=== PATIENT | male | born 1955 | race Caucasian/White ===

== ENCOUNTER 2018-05-27 16:31 | Emergency (ER) | payer MEDICARE, MEDICAID ==
[2018-05-27] MEDS ORDERED: NOREPINEPHRINE BITARTRATE INJ/PF 4 MG/4 ML SDV IV ONE (16:34)
[2018-05-27] MEDS ORDERED: DEXTROSE 5%-WATER 250 ML with NOREPINEPHRINE BITARTRATE 4 MG IV PRN ×2 (16:46)
[2018-05-27 16:47] LABS: ABSOLUTE LYMPHOCYTES (AUTO) 2.3 10^3/uL (0.5-4.7); ABSOLUTE NEUT (AUTO) 6.2 10^3/uL (1.7-8.2); BASOPHILS % (AUTO) 0.2 % (0-2); EOSINOPHILS % (AUTO) 0.2 % (0-6); HEMATOCRIT 52.8 % (37.9-51.0); HEMOGLOBIN 18.2 g/dL (13.5-17.0); LYMPHOCYTES % (AUTO) 24.3 % (13-45); MEAN CORPUSCULAR HEMOGLOBIN 34.7 pg (27.0-33.4); MEAN CORPUSCULAR HGB CONC 34.5 g/dL (32.0-36.0); MEAN CORPUSCULAR VOLUME 100 fl (80-97); MONOCYTES % (AUTO) 10.5 % (3-13); PLATELET COUNT 169 10^3/uL (150-450); RED BLOOD COUNT 5.26 10^6/uL (4.35-5.55); RED CELL DISTRIBUTION WIDTH 14.1 % (11.5-14.0); SEGMENTED NEUTROPHILS % (AUTO) 64.8 % (42-78); TOTAL CELLS COUNTED % (AUTO) 100 %; WHITE BLOOD COUNT 9.5 10^3/uL (4.0-10.5)
[2018-05-27] MEDS ORDERED: RINGERS SOLUTION,LACTATED 1,000 ML IV ONE (16:49)
[2018-05-27] MEDS ORDERED: NORMAL SALINE 1000 ML 1,000 ML IV PRN (17:03)
--- NOTE | 2018-05-27 17:05 | ER Document Report ---
ED General - General Stated Complaint: BLOOD PRESSURE ISSUE Time Seen by Provider: 05/27/18 16:54 Mode of Arrival: Medic Information source: Patient Notes: 62-year-old male brought to the emergency department by EMS for possible dehydration. Patient states over the last 3 days he has had nausea, vomiting, diarrhea with minimal fluid intake. Patient states that he is unable to keep any fluids down. He contacted EMS because he is been feeling lightheaded secondary to possible dehydration. Patient denies a history of sick contacts. He denies any chest pain, shortness of breath, abdominal pain, dysuria, hematuria. Patient states that he does have a history of hypertension, diabetes , COPD. He denies a history of congestive heart failure. TRAVEL OUTSIDE OF THE [place] IN LAST 30 DAYS: No - HPI Onset: Other - 3 days Onset/Duration: Sudden Quality of pain: No pain Severity: None Pain Level: Denies Associated symptoms: Diarrhea, Vomiting Exacerbated by: Denies Relieved by: Denies Similar symptoms previously: No Recently seen / treated by doctor: No - Related Data Allergies/Adverse Reactions: No Known Allergies Allergy (Verified 03/12/13 14:51) Past Medical History - Social History Smoking Status: Former Smoker Family History: Reviewed & Not Pertinent - Past Medical History Cardiac Medical History: Reports: Hx Hypercholesterolemia, Hx Hypertension Renal/ Medical History: Reports: Hx Kidney Stones - Immunizations Hx Diphtheria, Pertussis, Tetanus Vaccination: No - pt unsure Review of Systems - Review of Systems Constitutional: No symptoms reported EENT: No symptoms reported Cardiovascular: Lightheaded Respiratory: No symptoms reported Gastrointestinal: Diarrhea, Nausea, Vomiting Genitourinary: No symptoms reported Male Genitourinary: No symptoms reported Musculoskeletal: No symptoms reported Skin: No symptoms reported Hematologic/Lymphatic: No symptoms reported Neurological/Psychological: No symptoms reported -: Yes All other systems reviewed and negative Physical Exam - Vital signs Vitals: Resp 15 05/27/18 16:40 - Notes Notes: PHYSICAL EXAMINATION: GENERAL: Well-appearing, well-nourished and in no acute distress. HEAD: Atraumatic, normocephalic. EYES: Pupils equal round and reactive to light, extraocular movements intact, sclera anicteric, conjunctiva are normal. ENT: Nares patent, oropharynx clear without exudates. Moist mucous membranes. NECK: Normal range of motion, supple without lymphadenopathy LUNGS: Breath sounds clear to auscultation bilaterally and equal. No wheezes rales or rhonchi. HEART: Regular rate and rhythm without murmurs ABDOMEN: Soft, nontender, nondistended abdomen. No guarding, no rebound. No masses appreciated. Musculoskeletal: Normal range of motion, no pitting or edema. No cyanosis. NEUROLOGICAL: Cranial nerves grossly intact. Normal speech, normal gait. Normal sensory, motor exams PSYCH: Normal mood, normal affect. SKIN: Warm, Dry, normal turgor, no rashes or lesions noted. Course - Re-evaluation Re-evalutation: 05/27/18 17:05 Patient received 2200ml and fluids and then Levophed was started as the patient' s blood pressure was in the 60s systolic. Patient denies fever, chills, chest pain, shortness of breath, abdominal pain. 05/27/18 18:51 EKG: Ventricular rate 110, para interval 164, castration 138, QTc 488, sinus tachycardia, right bundle branch block. 05/27/18 18:52 Levophed drip was held. Patient received an additional 2 L of fluids. Patient continued to be hypotensive in the 80s systolic. Patient was restarted on the Levophed drip. Patient refused central line. Labs were obtained. Patient's creatinine and BUN are elevated. Patient states that he does have a history of renal failure. He states that he has not required dialysis in the past. Patient states that he followed up with his primary care physician about a month ago and had blood work done. He was told that his renal function was normal. Patient states that he does go to pain management for chronic hip and lower back pain. I contacted [facility] for transfer the patient. I spoke with Dr. Salazar. He would like a lactic acid as well as an ABG done. I went to reevaluate the patient. He is now complaining of some abdominal pain. Patient states that he has a history of abdominal hernias. Patient states that his pain is similar to previous. He states that this pain is not new. With the patient being hypotensive and requiring a Levophed drip, a CT abdomen pelvis was ordered to rule out AAA prior to transfer. 05/27/18 20:10 CT done. Shows a complex cyst vs cystic neoplasm in the R mid pole kidney. ABG and lactic acid done. Lactic acid elevated. WBC is normal. Blood cultures obtained. No signs of infection in the lungs or urine. ABG shows chronic respiratory acidosis. 05/27/18 20:15 Flight crew in the ED to transport patient. Patient is currently stable without any complaints. - Vital Signs Vital signs: Temp Pulse Resp BP Pulse Ox 98.2 F 15 87/58 L 95 05/27/18 19:56 05/27/18 20:02 05/27/18 20:01 05/27/18 20:02 - Laboratory Result Diagrams: 05/27/18 15:45 05/27/18 15:45 Laboratory results interpreted by me: 05/27/18 05/27/18 05/27/18 15:45 15:45 16:58 Hgb 18.2 H Hct 52.8 H MCV 100 H MCH 34.7 H RDW 14.1 H Carbonic Acid ABG pCO2 ABG pO2 ABG HCO3 ABG Total CO2 ABG O2 Saturation Sodium 136.0 L Chloride 72 L Carbon Dioxide 35 H Anion Gap 29 H BUN 101 H Creatinine 8.64 H Est GFR ( Amer) 8 L Est GFR (Non-Af Amer) 6 L Glucose 146 H Lactic Acid 3.0 H Calcium 12.1 H* Direct Bilirubin 1.0 H ALT 77 H Urine Protein Urine Glucose (UA) Urine Blood 05/27/18 05/27/18 18:20 18:54 Hgb Hct MCV MCH RDW Carbonic Acid 1.66 H ABG pCO2 55.3 H ABG pO2 71.3 L ABG HCO3 30.8 H ABG Total CO2 32.5 H ABG O2 Saturation 93.6 L Sodium Chloride Carbon Dioxide Anion Gap BUN Creatinine Est GFR ( Amer) Est GFR (Non-Af Amer) Glucose Lactic Acid Calcium Direct Bilirubin ALT Urine Protein 100 H Urine Glucose (UA) 50 H Urine Blood SMALL H Discharge - Discharge Referrals: ALCON JONES MD [Primary Care Provider] - Follow up as needed
[2018-05-27 17:10] LABS: ALANINE AMINOTRANSFERASE 77 U/L (21-72); ALBUMIN 4.5 g/dL (3.5-5.0); ALKALINE PHOSPHATASE 73 U/L (38-126); ASPARTATE AMINO TRANSFERASE 49 U/L (17-59); BILIRUBIN,TOTAL 1.2 mg/dL (0.2-1.3); BLOOD UREA NITROGEN 101 mg/dL (7-20); CARBON DIOXIDE 35 mmol/L (22-30); GLUCOSE 146 mg/dL (75-110); POTASSIUM 4.4 mmol/L (3.6-5.0); TOTAL PROTEIN 7.7 g/dL (6.3-8.2)
[2018-05-27 17:15] LABS: CHLORIDE 72 mmol/L (98-107)
[2018-05-27 17:18] LABS: ANION GAP 29 (5-19)
[2018-05-27 17:19] LABS: CALCIUM 12.1 mg/dL (8.4-10.2)
--- NOTE | 2018-05-27 17:29 | RADIOLOGY REPORT (SQ) ---
EXAM DESCRIPTION: CHEST SINGLE VIEW COMPLETED DATE/TIME: 05/27/2018 5:17 pm REASON FOR STUDY: bed 18 COMPARISON: Two-view chest 03/07/2015 EXAM PARAMETERS: NUMBER OF VIEWS: One view. TECHNIQUE: Single frontal radiographic view of the chest acquired. RADIATION DOSE: NA LIMITATIONS: None. FINDINGS: LUNGS AND PLEURA: No opacities, masses or pneumothorax. No pleural effusion. MEDIASTINUM AND HILAR STRUCTURES: No masses. Contour normal. HEART AND VASCULAR STRUCTURES: Heart normal in size. Normal vasculature. BONES: No acute findings. HARDWARE: None in the chest. OTHER: No other significant finding. IMPRESSION: NO ACUTE RADIOGRAPHIC FINDING IN THE CHEST. TECHNICAL DOCUMENTATION: JOB ID: [id number] [employer]- All Rights Reserved Reading location - IP/workstation name: [email or web address]
[2018-05-27] MEDS ORDERED: LORAZEPAM INJ 2 MG/1 ML VIAL IV ONE (18:13)
[2018-05-27 18:55] LABS: APPEARANCE,URINE CLOUDY; BILIRUBIN,URINE NEGATIVE (NEGATIVE); COLOR,URINE YELLOW; GLUCOSE, URINE 50 mg/dL (NEGATIVE); KETONES,URINE NEGATIVE (NEGATIVE); LEUKOCYTE ESTERASE,URINE NEGATIVE (NEGATIVE); NITRITE,URINE NEGATIVE (NEGATIVE); PROTEIN,URINE 100 mg/dL (NEGATIVE); URINE SPECIFIC GRAVITY 1.016; UROBILINOGEN,URINE NEGATIVE mg/dL (<2.0)
--- NOTE | 2018-05-27 19:10 | EKG REPORT ---
SEVERITY:- ABNORMAL ECG - SINUS TACHYCARDIA RBBB AND LPFB : Confirmed by: Jermaine Toure 27-May-2018 19:09:48
--- NOTE | 2018-05-27 19:20 | RADIOLOGY REPORT (SQ) ---
EXAM DESCRIPTION: CT ABD/PELVIS NO ORAL OR IV COMPLETED DATE/TIME: 05/27/2018 7:08 pm REASON FOR STUDY: back pain COMPARISON: None. TECHNIQUE: CT scan of the abdomen and pelvis performed without intravenous contrast. Patient drank a very small amount of oral contrast. Images reviewed with lung, soft tissue, and bone windows. Cory nstructed coronal and sagittal MPR images reviewed. All images stored on PACS. All CT scanners at this facility use dose modulation, iterative reconstruction, and/or weight based d osing when appropriate to reduce radiation dose to as low as reasonably achievable (ALARA). [facility]: Dose Right [facility]: CareDose [facility]: Dose Right [facility]: Teradose 4D [facility]: Smart [place] RADIATION DOSE: CT Rad equipment meets quality standard of care and radiation dose reduction techniq ues were employed. CTDIvol: 19.9 mGy. DLP: 1001 mGy-cm.mGy. LIMITATIONS: None. FINDINGS: LOWER CHEST: Bibasilar atelectasis. Small hiatal hernia. No cardiomegaly. No pleural ef fusions. NON-CONTRASTED LIVER, SPLEEN, ADRENALS: Evaluation limited by lack of IV contrast. No identified sign ificant masses. PANCREAS: No masses. No peripancreatic inflammatory changes. GALLBLADDER: Multiple tiny gallstones without gallbladder wall thickening or pericholecystic fluid. RIGHT KIDNEY AND URETER: 3.5 x 3 cm complex cyst right mid-pole kidney may be a cystic neoplasm. No significant calcifications. No hydronephrosis or hydroureter. LEFT KIDNEY AND URETER: No suspicious masses. Assessment limited by lack of IV contrast. No signifi cant calcifications. No hydronephrosis or hydroureter. AORTA AND RETROPERITONEUM: No aneurysm. No retroperitoneal masses or adenopathy. BOWEL AND PERITONEAL CAVITY: No obvious masses or inflammatory changes. No free fluid. APPENDIX: Normal. PELVIS, BLADDER, AND ABDOMINAL WALL:No abnormal masses. No free fluid. Bladder normal. BONES: Degenerative disc changes throughout the lumbar spine. Central canal stenosis at L3-[address] bulge and bony spurring best shown on sagittal image 59 OTHER: No other significant finding. IMPRESSION: Complex cyst versus cystic neoplasm right mid-pole kidney Degenerative disc changes lumbar spine with high-grade central canal stenosis at L3-4 COMMENT: Quality ID # [id number]: Final reports with documentation of one or more dose reduction techniques (e.g., Automated exposure control, adjustment of the mA and/or kV according to patient size, use of iterative reconstruction technique) TECHNICAL DOCUMENTATION: JOB ID: [id number] [employer]- All Rights Reserved Reading location - IP/workstation name: [email or web address]
[2018-05-27] MEDS ORDERED: NICOTINE 21 MG/24 HR PATCH.TD24 TD ONE (19:36)
[2018-05-27 19:38] LABS: ARTERIAL BLOOD BASE EXCESS 3.8 mmol/L; ARTERIAL BLOOD FIO2 4L; ARTERIAL BLOOD H2CO3 1.66 mmol/L (1.05-1.35); ARTERIAL BLOOD HCO3 30.8 mmol/L (20-24); ARTERIAL BLOOD O2 SATURATION 93.6 % (94-98); ARTERIAL BLOOD PCO2 55.3 mmHg (35-45); ARTERIAL BLOOD PH 7.36 (7.35-7.45); ARTERIAL BLOOD PO2 71.3 mmHg (80-100); ARTERIAL BLOOD TOTAL CO2 32.5 mmol/L (23-27)
[2018-05-27 20:07] VITALS: BP 87/58
== END 2018-05-27 20:30 | disposition short-term general hospital (02) ==
LOC: ER 16:31
DX: E86.0 Dehydration (principal); R19.7 Diarrhea, unspecified; R11.2 Nausea with vomiting, unspecified; E78.00 Pure hypercholesterolemia, unspecified; I10 Essential (primary) hypertension; Z87.442 Personal history of urinary calculi
CPT/HCPCS: 93005; 99285; 96374; 36415; 87040; 82803; 83605; 85025; 80053; 81001; 84484; 71045; 74176; 93010; J3490; J2060; J7060; J7030; J7120

== ENCOUNTER 2018-06-11 16:47 | Emergency (ER) | payer MEDICARE, MEDICAID ==
[2018-06-11 16:57] VITALS: BP 104/68
--- NOTE | 2018-06-11 17:54 | ER Document Report ---
ED Medical Screen (RME) - General Chief Complaint: Chest Pain Stated Complaint: CHEST PAIN Time Seen by Provider: 06/11/18 17:40 Notes: Patient is a 62-year-old male with recent ICU stay for renal failure that presents to the emergency department for chief complaint of left arm pain and chest pain. Patient states that he was in the ICU recently and was discharged about a week ago, for acute renal failure, which was improved prior to his discharge, but he is also noted to have a mass on his kidney, which is currently being worked up, he has not yet had a biopsy. He states the pain comes of his left arm, and radiates into his left chest. He was seen by another physician today who advised him to come to the emergency department. ROS: Unless otherwise stated in this report the patient's positive and negative responses for review of systems for constitutional, eyes, ENT, cardiovascular, respiratory, gastrointestinal, neurological, genitourinary, musculoskeletal, and integumentary systems and related systems to the presenting problem are either as stated in the HPI or were not pertinent or were negative for the symptoms and/or complaints related to the presenting medical problem. PHYSICAL EXAMINATION: Vital signs reviewed. GENERAL: Well-appearing, well-nourished and in no acute distress. HEAD: Atraumatic, normocephalic. EYES: Pupils equal round extraocular movements intact, conjunctiva are normal. ENT: Nares patent NECK: Normal range of motion CV: Heart regular rate and rhythm LUNGS: No respiratory distress Musculoskeletal: Normal range of motion NEUROLOGICAL: Normal speech PSYCH: Normal mood, normal affect. MDM: Patient seen and examined for rapid initial assessment. Vital signs reviewed. EKG reviewed demonstrate a right bundle branch block, which was seen on prior EKG from 02/2018. A comprehensive ED assessment and evaluation of the patient , analysis of test results and completion of the medical decision making process will be conducted by additional ED providers. *Note is created using voice recognition software and may contain spelling, syntax or grammatical errors. TRAVEL OUTSIDE OF THE [place] IN LAST 30 DAYS: No - Related Data Allergies/Adverse Reactions: No Known Allergies Allergy (Verified 06/11/18 17:40) Past Medical History - Social History Frequency of alcohol use: None Drug Abuse: None - Past Medical History Cardiac Medical History: Reports: Hx Hypercholesterolemia, Hx Hypertension Renal/ Medical History: Reports: Hx Kidney Stones. Denies: Hx Peritoneal Dialysis - Immunizations Hx Diphtheria, Pertussis, Tetanus Vaccination: No - pt unsure Physical Exam - Vital signs Vitals: Temp Pulse Resp BP Pulse Ox 98.8 F 97 18 104/68 96 06/11/18 16:56 06/11/18 16:56 06/11/18 16:56 06/11/18 16:56 06/11/18 16:56 Course - Vital Signs Vital signs: Temp Pulse Resp BP Pulse Ox 98.8 F 97 18 104/68 96 06/11/18 16:56 06/11/18 16:56 06/11/18 16:56 06/11/18 16:56 06/11/18 16:56 Doctor's Discharge - Discharge Referrals: ALCON JONES MD [Primary Care Provider] - Follow up as needed
[2018-06-11 18:51] LABS: ABSOLUTE EOSINOPHILS # (AUTO) 0.1 10^3/uL (0.0-0.6); ABSOLUTE LYMPHOCYTES (AUTO) 1.8 10^3/uL (0.5-4.7); ABSOLUTE MONOCYTES (AUTO) 0.4 10^3/uL (0.1-1.4); ABSOLUTE NEUT (AUTO) 3.9 10^3/uL (1.7-8.2); BASOPHILS % (AUTO) 0.7 % (0-2); EOSINOPHILS % (AUTO) 1.6 % (0-6); HEMATOCRIT 48.1 % (37.9-51.0); HEMOGLOBIN 16.2 g/dL (13.5-17.0); LYMPHOCYTES % (AUTO) 28.8 % (13-45); MEAN CORPUSCULAR HEMOGLOBIN 33.8 pg (27.0-33.4); MEAN CORPUSCULAR HGB CONC 33.7 g/dL (32.0-36.0); MEAN CORPUSCULAR VOLUME 100 fl (80-97); MONOCYTES % (AUTO) 5.8 % (3-13); PLATELET COUNT 185 10^3/uL (150-450); RED CELL DISTRIBUTION WIDTH 13.2 % (11.5-14.0); SEGMENTED NEUTROPHILS % (AUTO) 63.1 % (42-78); TOTAL CELLS COUNTED % (AUTO) 100 %; WHITE BLOOD COUNT 6.2 10^3/uL (4.0-10.5)
--- NOTE | 2018-06-11 18:57 | RADIOLOGY REPORT (SQ) ---
EXAM DESCRIPTION: CHEST SINGLE VIEW COMPLETED DATE/TIME: 06/11/2018 6:07 pm REASON FOR STUDY: chest pain COMPARISON: 03/07/2015 EXAM PARAMETERS: NUMBER OF VIEWS: One view. TECHNIQUE: Single frontal radiographic view of the chest acquired. RADIATION DOSE: NA LIMITATIONS: None. FINDINGS: LUNGS AND PLEURA: Hyperexpansion of the lungs. There is slight haziness in the right base with blurring of the right hemidiaphragm. MEDIASTINUM AND HILAR STRUCTURES: No masses. Contour normal. HEART AND VASCULAR STRUCTURES: Heart normal in size. Normal vasculature. BONES: No acute findings. HARDWARE: None in the chest. OTHER: No other significant finding. IMPRESSION: Chronic lung changes. Cannot exclude very limited right lower lobe pneumonia. TECHNICAL DOCUMENTATION: JOB ID: [id number] [employer]- All Rights Reserved Reading location - IP/workstation name: [email or web address]
[2018-06-11 19:08] LABS: ALANINE AMINOTRANSFERASE 60 U/L (21-72); ALKALINE PHOSPHATASE 57 U/L (38-126); ANION GAP 8 (5-19); ASPARTATE AMINO TRANSFERASE 58 U/L (17-59); BILIRUBIN,DIRECT 0.3 mg/dL (0.0-0.4); BILIRUBIN,TOTAL 0.8 mg/dL (0.2-1.3); BLOOD UREA NITROGEN 19 mg/dL (7-20); CALCIUM 9.9 mg/dL (8.4-10.2); CARBON DIOXIDE 35 mmol/L (22-30); CHLORIDE 100 mmol/L (98-107); CREATINE KINASE 39 U/L (55-170); GLUCOSE 84 mg/dL (75-110); POTASSIUM 5.1 mmol/L (3.6-5.0); SODIUM 142.5 mmol/L (137-145); TOTAL PROTEIN 6.9 g/dL (6.3-8.2)
[2018-06-11 19:20] LABS: NT PRO BNP 195 pg/mL (5-900); TROPONIN I < 0.012 ng/mL
--- NOTE | 2018-06-12 08:27 | EKG REPORT ---
SEVERITY:- ABNORMAL ECG - SINUS RHYTHM RIGHT BUNDLE BRANCH BLOCK : Confirmed by: Jermaine Toure 12-Jun-2018 08:27:11
== END 2018-06-11 20:11 | disposition left against medical advice (07) ==
LOC: ER 16:47
DX: R07.9 Chest pain, unspecified (principal); N28.89 Other specified disorders of kidney and ureter; E78.00 Pure hypercholesterolemia, unspecified; I10 Essential (primary) hypertension; Z87.442 Personal history of urinary calculi
CPT/HCPCS: 36415; 71045; 80053; 82550; 83880; 84484; 85025; 93005; 93010; 99285

== ENCOUNTER → 2018-07-30 | Outpatient (CLI) | payer MEDICARE, MEDICAID ==
[2018-07-30 10:09] LABS: HEMATOCRIT 50.4 % (37.9-51.0); HEMOGLOBIN 17.2 g/dL (13.5-17.0); MEAN CORPUSCULAR HEMOGLOBIN 33.8 pg (27.0-33.4); MEAN CORPUSCULAR HGB CONC 34.1 g/dL (32.0-36.0); MEAN CORPUSCULAR VOLUME 99 fl (80-97); PLATELET COUNT 136 10^3/uL (150-450); RED BLOOD COUNT 5.09 10^6/uL (4.35-5.55); RED CELL DISTRIBUTION WIDTH 13.7 % (11.5-14.0)
[2018-07-30 10:17] LABS: APPEARANCE,URINE CLEAR; BILIRUBIN,URINE NEGATIVE (NEGATIVE); COLOR,URINE STRAW; GLUCOSE, URINE NEGATIVE (NEGATIVE); KETONES,URINE NEGATIVE (NEGATIVE); LEUKOCYTE ESTERASE,URINE NEGATIVE (NEGATIVE); NITRITE,URINE NEGATIVE (NEGATIVE); PROTEIN,URINE NEGATIVE (NEGATIVE); URINE SPECIFIC GRAVITY 1.008; UROBILINOGEN,URINE NEGATIVE mg/dL (<2.0)
[2018-07-30 10:30] LABS: ANION GAP 11 (5-19); BLOOD UREA NITROGEN 11 mg/dL (7-20); CALCIUM 10.1 mg/dL (8.4-10.2); CARBON DIOXIDE 32 mmol/L (22-30); CHLORIDE 100 mmol/L (98-107); GLUCOSE 124 mg/dL (75-110); POTASSIUM 4.8 mmol/L (3.6-5.0); SODIUM 142.9 mmol/L (137-145)
== END ==
LOC: OD 09:33
PROVIDERS: ATTEND Internal Medicine Nephrology
DX: E11.9 Type 2 diabetes mellitus without complications (principal); N17.9 Acute kidney failure, unspecified
CPT/HCPCS: 36415; 80048; 81001; 85027

== ENCOUNTER 2018-11-23 15:13 | Emergency (ER) | payer MEDICARE, MEDICAID ==
--- NOTE | 2018-11-23 16:28 | ER Document Report ---
ED Medical Screen (RME) - General Chief Complaint: Fall Injury Stated Complaint: DIFFICULTY BREATHING,BACK/SHOULDER PAIN Time Seen by Provider: 11/23/18 15:49 Primary Care Provider: Vicenta BLACK MD [Primary Care Provider] - Follow up as needed Mode of Arrival: Ambulatory Information source: Patient Notes: Patient is a 63-year-old male who presents to the emergency department with complaints of left shoulder pain, nausea, dizziness and headache after sustaining a fall 3 days ago. Patient reports he fell onto his left side, he is unsure why he fell but he believes he tripped over something. Patient reports he did not seek medical treatment at that time. He states that EMS did come to his house, checked his vitals and stated everything was normal. Patient reports persistent headache, vomiting x1 and dizziness. Patient went and saw his primary care provider today who wanted him sent to the emergency to part and for further evaluation. Exam: Patient alert, oriented and answering all questions appropriately. Speech clear. [employer] strengths are equal bilaterally. I have greeted and performed a rapid initial assessment of this patient. A comprehensive ED assessment and evaluation of the patient, analysis of test results and completion of the medical decision making process will be conducted by additional ED providers. Dictation of this chart was performed using voice recognition software; therefore, there may be some unintended grammatical errors. TRAVEL OUTSIDE OF THE [place] IN LAST 30 DAYS: No - Related Data Allergies/Adverse Reactions: No Known Allergies Allergy (Verified 06/11/18 17:40) Past Medical History - Social History Chew tobacco use (# tins/day): No Frequency of alcohol use: None Drug Abuse: None - Past Medical History Cardiac Medical History: Reports: Hx Hypercholesterolemia, Hx Hypertension Pulmonary Medical History: Reports: Hx COPD Renal/ Medical History: Reports: Hx Kidney Stones. Denies: Hx Peritoneal Dialysis - Immunizations Hx Diphtheria, Pertussis, Tetanus Vaccination: No - pt unsure Physical Exam - Vital signs Vitals: Temp Pulse Resp BP Pulse Ox 98.5 F 104 H 19 112/75 91 L 11/23/18 15:35 11/23/18 15:35 11/23/18 15:35 11/23/18 15:35 11/23/18 15:35 Course - Vital Signs Vital signs: Temp Pulse Resp BP Pulse Ox 98.5 F 104 H 19 112/75 91 L 11/23/18 15:35 11/23/18 15:35 11/23/18 15:35 11/23/18 15:35 11/23/18 15:35 Doctor's Discharge - Discharge Referrals: Vicenta BLACK MD [Primary Care Provider] - Follow up as needed
--- NOTE | 2018-11-23 16:51 | RADIOLOGY REPORT (SQ) ---
EXAM DESCRIPTION: CHEST 2 VIEWS COMPLETED DATE/TIME: 11/23/2018 4:42 pm REASON FOR STUDY: sob s/p fall 3 days ago COMPARISON: 06/11/2018 EXAM PARAMETERS: NUMBER OF VIEWS: two views TECHNIQUE: Digital Frontal and Lateral radiographic views of the chest acquired. RADIATION DOSE: NA LIMITATIONS: none FINDINGS: LUNGS AND PLEURA: No opacities, masses or pneumothorax. No pleural effusion. MEDIASTINUM AND HILAR STRUCTURES: No masses or contour abnormalities. HEART AND VASCULAR STRUCTURES: Stable heart size. No evidence for failure. BONES: No acute findings. HARDWARE: None in the chest. OTHER: No other significant finding. IMPRESSION: NO ACUTE RADIOGRAPHIC FINDING IN THE CHEST. TECHNICAL DOCUMENTATION: JOB ID: [id number] [employer]- All Rights Reserved Reading location - IP/workstation name: [email or web address]
--- NOTE | 2018-11-23 16:52 | RADIOLOGY REPORT (SQ) ---
EXAM DESCRIPTION: SHOULDER LEFT 2 OR MORE VIEWS COMPLETED DATE/TIME: 11/23/2018 4:42 pm REASON FOR STUDY: pain s/p fall 3 days ago COMPARISON: None. NUMBER OF VIEWS: Three views. TECHNIQUE: Internal rotation, external rotation, and Y view images acquired of the left shoulder. LIMITATIONS: None. FINDINGS: MINERALIZATION: Normal. BONES: No acute fracture or dislocation. No worrisome bone lesions. JOINTS: No dislocation. Mild scattered degenerative changes. VISUALIZED LUNGS AND RIBS: No pneumothorax. No rib fracture. SOFT TISSUES: No radiopaque foreign body. OTHER: No other significant finding. IMPRESSION: No evidence of acute injury. Mild scattered degenerative changes. TECHNICAL DOCUMENTATION: JOB ID: [id number] [employer]- All Rights Reserved Reading location - IP/workstation name: [email or web address]
--- NOTE | 2018-11-23 17:03 | RADIOLOGY REPORT (SQ) ---
EXAM DESCRIPTION: CT HEAD WITHOUT COMPLETED DATE/TIME: 11/23/2018 4:50 pm REASON FOR STUDY: fall 3 days ago, vomiting, dizziness COMPARISON: None. TECHNIQUE: Axial images acquired through the brain without intravenous contrast. Images reviewed wi th bone, brain and subdural windows. Additional sagittal and coronal reconstructions were generated. Images stored on PACS. All CT scanners at this facility use dose modulation, iterative reconstruction, and/or weight based d osing when appropriate to reduce radiation dose to as low as reasonably achievable (ALARA). [facility]: Dose Right [facility]: CareDose [facility]: Dose Right [facility]: Teradose 4D [facility]: Smart [employer] RADIATION DOSE: CT Rad equipment meets quality standard of care and radiation dose reduction techniq ues were employed. CTDIvol: 53.2 mGy. DLP: 964 mGy-cm. mGy. LIMITATIONS: None. FINDINGS: VENTRICLES: Normal size and contour. CEREBRUM: No masses. No hemorrhage. No midline shift. No evidence for acute infarction. Normal gra y/white matter differentiation. No areas of low density in the white matter. CEREBELLUM: No masses. No hemorrhage. No alteration of density. No evidence for acute infarction. EXTRAAXIAL SPACES: No fluid collections. No masses. ORBITS AND GLOBE: No intra- or extraconal masses. Normal contour of globe without masses. CALVARIUM: No fracture. PARANASAL SINUSES: No fluid or mucosal thickening. SOFT TISSUES: No mass or hematoma. OTHER: No other significant finding. IMPRESSION: NORMAL BRAIN CT WITHOUT CONTRAST. EVIDENCE OF ACUTE STROKE: NO. COMMENT: Quality ID # [id number]: Final reports with documentation of one or more dose reduction techniques (e.g., Automated exposure control, adjustment of the mA and/or kV according to patient size, use of iterative reconstruction technique) TECHNICAL DOCUMENTATION: JOB ID: [id number] [employer]- All Rights Reserved Reading location - IP/workstation name: [email or web address]
[2018-11-23] MEDS ORDERED: PREDNISONE 20 MG TABLET PO ONE (19:07)
[2018-11-23] MEDS ORDERED: IPRATROPIUM/ALBUTEROL 0.5-2.5 MG/3 ML AMPUL NEB ONE (19:09)
--- NOTE | 2018-11-23 19:09 | ER Document Report ---
ED General - General Chief Complaint: Fall Injury Stated Complaint: DIFFICULTY BREATHING,BACK/SHOULDER PAIN Time Seen by Provider: 11/23/18 15:49 Primary Care Provider: Vicenta BLACK MD [ACTIVE STAFF] - Follow up as needed Mode of Arrival: Ambulatory Notes: Patient is a 63-year-old male with past medical history of COPD, hypertension, presents complaining of a fall 3 days ago that he believes was when he tripped over something but is uncertain. States that he fell hitting his ground on concrete. He does show me a picture of a blood splattered on the concrete floor where he hit his head. States that he does not recall any of the events from the fall itself. States that since that time he has had a throbbing, constant, global headache that is mild to moderate in nature. He has had associated vomiting on one occasion but denies any weakness, numbness or confusion. States he does intimately feel somewhat lightheaded or dizzy. Symptoms have been constant since onset. No history of similar symptoms in the past. He also complains of some mild left shoulder discomfort but denies any other extremity injuries. The patient also reports that for the past 4-5 days he has had a cough with associated associated sputum production and mild increased shortness of breath. He has not been increasing his nebulizer treatments. Nothing seems to worsen his symptoms. He has not seen his primary doctor regarding the above concerns. Nothing is new or different that prompted a visit to the emergency department tonight. TRAVEL OUTSIDE OF THE [place] IN LAST 30 DAYS: No - Related Data Allergies/Adverse Reactions: No Known Allergies Allergy (Verified 06/11/18 17:40) Past Medical History - General Information source: Patient - Social History Smoking Status: Current Every Day Smoker Chew tobacco use (# tins/day): No Frequency of alcohol use: None Drug Abuse: None Lives with: Spouse/Significant other Family History: Reviewed & Not Pertinent Patient has suicidal ideation: No Patient has homicidal ideation: No - Past Medical History Cardiac Medical History: Reports: Hx Hypercholesterolemia, Hx Hypertension Pulmonary Medical History: Reports: Hx COPD Renal/ Medical History: Reports: Hx Kidney Stones. Denies: Hx Peritoneal Dialysis - Immunizations Hx Diphtheria, Pertussis, Tetanus Vaccination: No - pt unsure Review of Systems - Review of Systems Notes: Constitutional: Negative for fever. Eyes: Negative for visual changes. ENT: Negative for facial injury Cardiovascular: Negative for chest injury. Respiratory: Positive for shortness of breath, cough and sputum production Gastrointestinal: Negative for abdominal injury. Genitourinary: Negative for genital injury Musculoskeletal: Negative for back injury. Positive for left shoulder pain Skin: Positive for laceration/abrasions. Neurological: Positive for head injury. Physical Exam - Vital signs Vitals: Temp Pulse Resp BP Pulse Ox 98.5 F 104 H 19 112/75 91 L 11/23/18 15:35 11/23/18 15:35 11/23/18 15:35 11/23/18 15:35 11/23/18 15:35 Interpretation: Tachycardic, Hypoxic Notes: PHYSICAL EXAMINATION: GENERAL: Well-appearing, no acute distress. HEAD: Mild traumatic ecchymosis to the left posterior occiput otherwise atraumatic, normocephalic. EYES: Pupils equal round and reactive to light, extraocular movements intact, sclera anicteric, conjunctiva are normal. ENT: nares patent, no oral pharyngeal trauma. No hemotympanum, no Culver's sign, no raccoon eyes. NECK: No midline cervical spine tenderness. Patient able to move their head to 45 bilaterally without any discomfort. LUNGS: Breath sounds clear to auscultation bilaterally and equal. Faint expiratory wheezing in all lung boyd. HEART: Regular rate and rhythm without murmurs. CHEST WALL: No ecchymosis over the chest wall. ABDOMEN: Soft, nontender, normoactive bowel sounds. No guarding, no rebound. No abdominal bruising EXTREMITIES: Normal range of motion, no pitting or edema. no long bone deformities. BACK: No midline spinal tenderness, step-offs, or deformities. NEUROLOGICAL: Face symmetric. Tongue protrudes midline. Extraocular motions intact. Pupils are 2 mm and equally reactive. Normal speech, normal gait. 5 out of 5 strength in both the distal and proximal upper and lower extremities bilaterally. Sensation is grossly intact throughout. Finger to nose testing normal. Pronator drift normal. PSYCH: Normal mood, normal affect. SKIN: Warm, Dry, normal turgor, no rashes or lesions noted. Course - Re-evaluation Re-evalutation: 11/23/18 19:07 Patient presents after a fall 3 days ago. States that this was a mechanical fall believes he tripped over something but denies any syncopal component to the episode. Said that he has had to come in today due to ongoing headache, lightheadedness as well as having a cough with associated production of sputum and feeling more short of breath. CT of the head was obtained in triage that does not demonstrate any evidence of acute intracranial bleed. No evidence of skull fractures. No evidence of basilar skull fracture on exam. Patient does have a small left occipital scalp hematoma on examination but no other noted findings on trauma examination. Neurologic exam completely unremarkable. Patient evaluated by NEXUS criteria and found to be negative. Patient is also negative by bangladeshi C-spine criteria. No clinical evidence to suggest increased risk of cervical spine fracture. No indication for further imaging of the cervical spine this point. Patient also complained of some left shoulder pain. X-ray of this area is unremarkable. Chest x-ray is clear. Patient's vitals are noted show mild hypertension and tachycardia. Patient reports that tachycardia is his baseline with a normal heart rate between 105 and 110. He denies chest pain or pleuritic discomfort. He has no history of DVT or pulmonary embolus. No risk factors for pulmonary embolism. He has symptoms consistent with a viral upper respiratory picture including nasal congestion, cough, sputum production. He has a history of COPD, moderate wheezing on exam. He has been encouraged to use his inhalers at home and has been started on a 5-day course of prednisone. Did request that the patient remain in the emergency department given some borderline oxygen saturations to allow additional nebulizer therapies to ensure that his oxygen improved above 92%. Patient did decline stating he would like to go home, that it is normal for him. Patient did get up and move around which did resolve and his saturations improving to 98-99% and he states this is quite typical for him. At this time will discharge with return precautions and follow-up recommendations. Verbal discharge instructions given a the bedside and opportunity for questions given. Medication warnings reviewed. Patient is in agreement with this plan and has verbalized understanding of return precautions and the need for primary care follow-up in the next 24-72 hours. - Vital Signs Vital signs: Temp Pulse Resp BP Pulse Ox 98.5 F 104 H 19 112/75 91 L 11/23/18 15:35 11/23/18 15:35 11/23/18 15:35 11/23/18 15:35 11/23/18 15:35 - Diagnostic Test Radiology reviewed: Image reviewed, Reports reviewed Radiology results interpreted by me: 11/23/18 19:09 CT head: No acute intracranial bleed or mass Discharge - Discharge Clinical Impression: Shortness of breath COPD (chronic obstructive pulmonary disease) Qualifiers: COPD type: unspecified COPD Qualified Code(s): J44.9 - Chronic obstructive pulmonary disease, unspecified Fall Qualifiers: Encounter type: initial encounter Qualified Code(s): W19.XXXA - Unspecified fall, initial encounter Head trauma Qualifiers: Encounter type: initial encounter Qualified Code(s): S09.90XA - Unspecified injury of head, initial encounter Condition: Good Disposition: HOME, SELF-CARE Additional Instructions: You have likely sustained a contusion (bruise) to your head. Your CT scan of the head is normal today symptoms to expect from a concussion include nausea, mild to moderate headache, difficulty concentrating or sleeping, and mild lightheadedness. These symptoms should improve over the next few days to weeks. Return to the emergency department or follow-up with your primary care doctor if your symptoms are not improving over this time. Signs of a more serious head injury include vomiting, severe headache, excessive sleepiness or confusion, and weakness or numbness in your face, arms or legs. Return immediately to the Emergency Department if you experience any of these more concerning symptoms. Rest, avoid strenuous physical or mental activity, and avoid activities that could potentially result in another head injury until all your symptoms from this head injury are completely resolved for at least 2-3 weeks. If you participate in sports, get cleared by your doctor or marine mammal trainer before returning to play. You may take ibuprofen or acetaminophen over the counter according to label instructions for mild headache or scalp soreness. You were seen for a COPD exacerbation. Your symptoms improved with treatment here in the emergency department. However, it is very important that you return to the emergency department immediately if you began to have worsening difficulty breathing that does not respond to your normal home nebulizers. You are also being sent home on a five-day course of steroids that you should start taking tomorrow. Please also follow closely with your primary care physician. You should eturn to emergency department if you develop fever greater than 101, persistent cough, persistent vomiting, pass out, or any other symptoms that are concerning to you. Prescriptions: Prednisone [Deltasone 20 mg Tablet] 2 tab PO DAILY 5 Days tablet Referrals: Vicenta BLACK MD [ACTIVE STAFF] - Follow up tomorrow
[2018-11-23 19:26] VITALS: BP 122/91
== END 2018-11-23 19:28 | disposition home or self-care (01) ==
LOC: ER 15:13
DX: S00.03XA Contusion of scalp, initial encounter (principal); M25.512 Pain in left shoulder; R51 Headache; R42 Dizziness and giddiness; W19.XXXA Unspecified fall, initial encounter; Y92.008 Other place in unspecified non-institutional (private) residence as the place of occurrence of the external cause; J44.9 Chronic obstructive pulmonary disease, unspecified; I10 Essential (primary) hypertension; R05 Cough; R06.02 Shortness of breath; F17.200 Nicotine dependence, unspecified, uncomplicated; R00.0 Tachycardia, unspecified; R09.81 Nasal congestion
CPT/HCPCS: 99284; 71046; 73030; 70450; A9270; J7512

== ENCOUNTER 2019-01-27 12:03 | Emergency (ER) | payer MEDICARE, MEDICAID ==
[2019-01-27] MEDS ORDERED: IPRATROPIUM/ALBUTEROL 0.5-2.5 MG/3 ML AMPUL NEB ONE (12:56)
--- NOTE | 2019-01-27 12:57 | ER Document Report ---
ED Medical Screen (RME) - General Chief Complaint: Constipation Stated Complaint: CONSTIPATION Time Seen by Provider: 01/27/19 12:51 Primary Care Provider: ANNABELLE PAYTON MD [Primary Care Provider] - Follow up as needed TRAVEL OUTSIDE OF THE [place] IN LAST 30 DAYS: No - HPI Notes: 01/27/19 12:53 Patient is a 63-year-old male with a history of COPD (not on oxygen close), hypertension, hypercholesterolemia, chronic pain who presents complaining of left-sided sharp chest pain that started last evening and has been relatively constant. Patient states that he has chronic issues with shortness of breath. He also complains of being constipated and not being able to have a bowel movement in 6 days. Patient states that he does feel distended. No history of CAD, DE, PE, DVT. Denies GONZALEZ, fever, neck pain, URI, dysuria, or rash. I have treated and performed a rapid initial assessment of this patient. A comprehensive ED assessment and evaluation of the patient, analysis of test results and completion of medical decision making process will be conducted by additional ED providers. PHYSICAL EXAMINATION: GENERAL: Well-appearing, well-nourished and in no acute distress. A&Ox4. Answers questions appropriately. LUNGS: Breath sounds clear to auscultation bilaterally and equal. Prolonged expiration without significant wheezing noted. HEART: Regular rate and rhythm without murmurs, rubs, gallops. ABDOMEN: Soft, distended abdomen. No guarding, no rebound. Normal bowel sounds present. No CVA tenderness bilaterally. Grossly nontender (cannot elicit thorough abd exam w/o bed, however). Extremities: No cyanosis, clubbing, or edema b/l. - Related Data Allergies/Adverse Reactions: No Known Allergies Allergy (Verified 01/27/19 12:18) Past Medical History - Past Medical History Cardiac Medical History: Reports: Hx Hypercholesterolemia, Hx Hypertension Pulmonary Medical History: Reports: Hx COPD Renal/ Medical History: Reports: Hx Kidney Stones. Denies: Hx Peritoneal Dialysis - Immunizations Hx Diphtheria, Pertussis, Tetanus Vaccination: No - pt unsure Physical Exam - Vital signs Vitals: Temp Pulse Resp BP Pulse Ox 99 F 104 H 20 141/85 H 91 L 01/27/19 12:37 01/27/19 12:37 01/27/19 12:37 01/27/19 12:37 01/27/19 12:37 Course - Vital Signs Vital signs: Temp Pulse Resp BP Pulse Ox 99 F 104 H 20 141/85 H 91 L 01/27/19 12:37 01/27/19 12:37 01/27/19 12:37 01/27/19 12:37 01/27/19 12:37 Doctor's Discharge - Discharge Referrals: ANNABELLE PAYTON MD [Primary Care Provider] - Follow up as needed
[2019-01-27 13:36] LABS: VENOUS BLOOD BASE EXCESS 0.6 mmol/L; VENOUS BLOOD HCO3 27.9 mmol/L (20-32); VENOUS BLOOD PCO2 54.1 mmHg (35-63); VENOUS BLOOD PH 7.33 (7.30-7.42)
[2019-01-27 13:52] LABS: ALANINE AMINOTRANSFERASE 29 U/L (21-72); ALBUMIN 3.9 g/dL (3.5-5.0); ALKALINE PHOSPHATASE 82 U/L (38-126); ANION GAP 12 (5-19); ASPARTATE AMINO TRANSFERASE 29 U/L (17-59); BILIRUBIN,DIRECT 0.4 mg/dL (0.0-0.4); BLOOD UREA NITROGEN 12 mg/dL (7-20); CALCIUM 9.5 mg/dL (8.4-10.2); CARBON DIOXIDE 29 mmol/L (22-30); CHLORIDE 100 mmol/L (98-107); GLUCOSE 102 mg/dL (75-110); TOTAL PROTEIN 6.8 g/dL (6.3-8.2)
[2019-01-27 13:53] LABS: ABSOLUTE LYMPHOCYTES (AUTO) 1.6 10^3/uL (0.5-4.7); ABSOLUTE MONOCYTES (AUTO) 0.5 10^3/uL (0.1-1.4); ABSOLUTE NEUT (AUTO) 5.7 10^3/uL (1.7-8.2); BASOPHILS % (AUTO) 0.4 % (0-2); EOSINOPHILS % (AUTO) 0.3 % (0-6); HEMATOCRIT 52.5 % (37.9-51.0); HEMOGLOBIN 17.8 g/dL (13.5-17.0); LYMPHOCYTES % (AUTO) 20.7 % (13-45); MEAN CORPUSCULAR HEMOGLOBIN 33.6 pg (27.0-33.4); MEAN CORPUSCULAR HGB CONC 33.9 g/dL (32.0-36.0); MEAN CORPUSCULAR VOLUME 99 fl (80-97); MONOCYTES % (AUTO) 6.2 % (3-13); PLATELET COUNT 165 10^3/uL (150-450); RED BLOOD COUNT 5.29 10^6/uL (4.35-5.55); RED CELL DISTRIBUTION WIDTH 13.9 % (11.5-14.0); SEGMENTED NEUTROPHILS % (AUTO) 72.4 % (42-78); TOTAL CELLS COUNTED % (AUTO) 100 %; WHITE BLOOD COUNT 7.9 10^3/uL (4.0-10.5)
--- NOTE | 2019-01-27 13:57 | RADIOLOGY REPORT (SQ) ---
EXAM DESCRIPTION: ACUTE ABDOMEN SERIES COMPLETED DATE/TIME: 01/27/2019 1:46 pm REASON FOR STUDY: constipation and CP COMPARISON: 11/23/2018 NUMBER OF VIEWS: Three views. TECHNIQUE: Frontal chest, supine abdomen and upright/decubitus abdomen radiographic images acquired. LIMITATIONS: None. FINDINGS: CHEST: Lungs clear of infiltrates. FREE AIR: None. No abnormal gas collections. BOWEL GAS PATTERN: Nonobstructive pattern. No dilated loops or air fluid levels. CONSTIPATION: mild. CALCIFICATIONS: No suspicious calcifications. HARDWARE: None in the abdomen. SOFT TISSUES: No gross mass or suggestion of organomegaly. BONES: No acute fracture. No worrisome bone lesions. OTHER: No other significant finding. IMPRESSION: NO RADIOGRAPHIC EVIDENCE FOR ACUTE ABDOMINAL DISEASE. CONSTIPATION. TECHNICAL DOCUMENTATION: JOB ID: [id number] [id number] 2010 [employer]- All Rights Reserved Reading location - IP/workstation name: [email or web address]
[2019-01-27 14:04] LABS: NT PRO BNP 303 pg/mL (5-900)
[2019-01-27 14:22] LABS: TROPONIN I < 0.012 ng/mL
--- NOTE | 2019-01-27 14:22 | ER Document Report ---
ED General - General Chief Complaint: Constipation Stated Complaint: CONSTIPATION Time Seen by Provider: 01/27/19 12:51 Primary Care Provider: ANNABELLE PAYTON MD [Primary Care Provider] - Follow up in 3-5 days Notes: Patient is a 63 year old male that presents to the emergency department for chief complaint of constipation. Patient reports that he has not had a good bowel movement in about 6 days, he tried using stool softeners, enemas, castor oil, magnesium citrate and other [id number] medications without much relief. He states his been trying to go but not able to. He is now having distention of his abdomen and pain associated with it. Denies any nausea or vomiting. He does take oxycodone and morphine for chronic back pain, but he states his been taking this for many years and had no issues with constipation. Denies any recent fevers, chills, night sweats, dysuria, hematuria, chest pain or shortness of breath. Past Medical History: COPD, chronic low back pain, hypertension Past Surgical History: Hernia repair Social History: Admits to smoking cigarettes, and occasional alcohol use, denies illicit drug use. Family History: Reviewed and noncontributory for presenting illness Allergies: Reviewed, see documented allergy list. REVIEW OF SYSTEMS: Other than noted above, the 12 point review of systems was reviewed with the patient and were negative, all pertinent findings are included in the HPI. PHYSICAL EXAMINATION: Vital signs reviewed, nursing noted reviewed. GENERAL: Well-appearing, well-nourished appears somewhat uncomfortable, but no acute distress HEAD: Atraumatic, normocephalic. EYES: Eyes appear normal, extraocular movements intact, sclera anicteric, conjunctiva are normal. ENT: nares patent, oropharynx clear without exudates. Moist mucous membranes. NECK: Normal range of motion, supple without lymphadenopathy LUNGS: Mild wheezing throughout all lung boyd, but no acute respiratory distress, no crackles or rales. HEART: Regular rate and rhythm without murmurs ABDOMEN: Soft, mildly distended, and mild diffuse tenderness with palpation, normoactive bowel sounds. No rebound, guarding, or rigidity. No masses appreciated. EXTREMITIES: Nontender, good range of motion, no pitting or edema. NEUROLOGICAL: No focal neurological deficits. Moves all extremities spontaneously Motor and sensory grossly intact on exam. PSYCH: Normal mood, normal affect. SKIN: Warm, Dry, normal turgor, no rashes or lesions noted on exposed skin TRAVEL OUTSIDE OF THE [place] IN LAST 30 DAYS: No - Related Data Allergies/Adverse Reactions: No Known Allergies Allergy (Verified 01/27/19 12:18) Past Medical History - Social History Smoking Status: Current Every Day Smoker Frequency of alcohol use: None Drug Abuse: None Family History: Reviewed & Not Pertinent Patient has suicidal ideation: No Patient has homicidal ideation: No - Past Medical History Cardiac Medical History: Reports: Hx Hypercholesterolemia, Hx Hypertension Pulmonary Medical History: Reports: Hx COPD Renal/ Medical History: Reports: Hx Kidney Stones. Denies: Hx Peritoneal Dialysis - Immunizations Hx Diphtheria, Pertussis, Tetanus Vaccination: No - pt unsure Physical Exam - Vital signs Vitals: Temp Pulse Resp BP Pulse Ox 99 F 104 H 20 141/85 H 91 L 01/27/19 12:37 01/27/19 12:37 01/27/19 12:37 01/27/19 12:37 01/27/19 12:37 Course - Re-evaluation Re-evalutation: Patient seen and examined vital signs reviewed. Laboratory data and/or imaging were ordered as appropriate for the patient's presenting symptoms and complaint, with consideration of any critical or life threatening conditions that may be associated with their obtained history and exam as noted above. Patient was treated with magnesium citrate, MiraLAX, and soapsuds enema with mineral oil Results were reviewed when available and demonstrated plain film x-rays, negative for bowel obstruction or signs of one, but was consistent with constipation, blood work was otherwise unremarkable The patient was re-evaluated and was stable, did not have a significant bowel movement, at this point will discharge the patient home with prescription for GoLYTELY, and 3 days worth of Relistor, to see if this will help with his constipation Evaluation was most consistent with constipation, likely opiate induced Results were discussed with the patient at this point, after careful c onsideration I feel that that patient can be discharged from the emergency department, the patient was educated treatments and reasons to return to the emergency department based on their presumed diagnosis as noted above, they were advised to followup with a primary care physician in 2-3 days. Patient was agreeable to plan of care. *Note is created using voice recognition software and may contain spelling, syntax or grammatical errors. Laboratory 01/27/19 01/27/19 01/27/19 13:09 13:09 13:09 WBC 7.9 RBC 5.29 Hgb 17.8 H Hct 52.5 H MCV 99 H MCH 33.6 H MCHC 33.9 RDW 13.9 Plt Count 165 Seg Neutrophils % 72.4 Lymphocytes % 20.7 Monocytes % 6.2 Eosinophils % 0.3 Basophils % 0.4 Absolute Neutrophils 5.7 Absolute Lymphocytes 1.6 Absolute Monocytes 0.5 Absolute Eosinophils 0.0 Absolute Basophils 0.0 VBG pH VBG pCO2 VBG HCO3 VBG Base Excess Sodium 141.0 Potassium 5.0 Chloride 100 Carbon Dioxide 29 Anion Gap 12 BUN 12 Creatinine 0.91 Est GFR ( Amer) > 60 Est GFR (Non-Af Amer) > 60 Glucose 102 Calcium 9.5 Total Bilirubin 1.0 Direct Bilirubin 0.4 Neonat Total Bilirubin Not Reportable Neonat Direct Bilirubin Not Reportable Neonat Indirect Bili Not Reportable AST 29 ALT 29 Alkaline Phosphatase 82 Troponin I < 0.012 NT-Pro-B Natriuret Pep 303 Total Protein 6.8 Albumin 3.9 01/27/19 13:09 WBC RBC Hgb Hct MCV MCH MCHC RDW Plt Count Seg Neutrophils % Lymphocytes % Monocytes % Eosinophils % Basophils % Absolute Neutrophils Absolute Lymphocytes Absolute Monocytes Absolute Eosinophils Absolute Basophils VBG pH 7.33 VBG pCO2 54.1 VBG HCO3 27.9 VBG Base Excess 0.6 Sodium Potassium Chloride Carbon Dioxide Anion Gap BUN Creatinine Est GFR ( Amer) Est GFR (Non-Af Amer) Glucose Calcium Total Bilirubin Direct Bilirubin Neonat Total Bilirubin Neonat Direct Bilirubin Neonat Indirect Bili AST ALT Alkaline Phosphatase Troponin I NT-Pro-B Natriuret Pep Total Protein Albumin Acute Abdomen Series 01/27/19 12:55 IMPRESSION: NO RADIOGRAPHIC EVIDENCE FOR ACUTE ABDOMINAL DISEASE. CONSTIPATION. - Vital Signs Vital signs: Temp Pulse Resp BP Pulse Ox 98.7 F 110 H 17 133/82 H 92 01/27/19 16:55 01/27/19 16:55 01/27/19 16:55 01/27/19 16:55 01/27/19 16:55 - Laboratory Result Diagrams: 01/27/19 13:09 01/27/19 13:09 Laboratory results interpreted by me: 01/27/19 13:09 Hgb 17.8 H Hct 52.5 H MCV 99 H MCH 33.6 H - EKG Interpretation by Me Additional EKG results interpreted by me: EKG demonstrates sinus rhythm with a ventricular rate of 99 bpm, right axis deviation, QTC 470 ms, presence of right bundle branch block and left posterior fascicular block, with T wave inversions in leads V1 through V5, compared with prior EKG from 06/11/2018, with flipped T waves in lead V5 only. Discharge - Discharge Clinical Impression: Constipation Qualifiers: Constipation type: unspecified constipation type Qualified Code(s): K59.00 - Constipation, unspecified Condition: Stable Disposition: HOME, SELF-CARE Instructions: Constipation ([facility]) Additional Instructions: Please take the prescribed medications including the bowel prep, as well as the prescribed tablets, that will relieve your constipation, if it is related to chronic opiate use. Prescriptions: Methylnaltrexone [place] [Relistor] 450 mg PO DAILY #9 tablet Peg 3350/Na Sulf,Bicarb,Cl/KCl [Golytely Solution 4000 ml] 4,000 ml PO DAILY #1 bottle Referrals: ANNABELLE PAYTON MD [Primary Care Provider] - Follow up in 3-5 days
[2019-01-27] MEDS ORDERED: NORMAL SALINE 1000 ML 1,000 ML IV ONE (14:32)
[2019-01-27] MEDS ORDERED: MINERAL OIL 30 ML UDCUP PR ONE (14:32)
[2019-01-27] MEDS ORDERED: POLYETHYLENE GLYCOL 3350 POWDER 17 GM/1 PACKET PO ONE (14:33)
[2019-01-27] MEDS ORDERED: MAGNESIUM CITRATE 296 ML BOTTLE PO ONE (14:33)
[2019-01-27 17:00] VITALS: BP 133/82
--- NOTE | 2019-01-27 17:04 | EKG REPORT ---
SEVERITY:- ABNORMAL ECG - SINUS RHYTHM RBBB AND LPFB : Confirmed by: Scott Yan MD 27-Jan-2019 17:03:45
== END 2019-01-27 16:59 | disposition home or self-care (01) ==
LOC: ER 12:03
DX: K59.00 Constipation, unspecified (principal); R10.9 Unspecified abdominal pain; R10.817 Generalized abdominal tenderness; I45.2 Bifascicular block; M54.9 Dorsalgia, unspecified; G89.29 Other chronic pain; Z79.891 Long term (current) use of opiate analgesic; J44.9 Chronic obstructive pulmonary disease, unspecified; I10 Essential (primary) hypertension; F17.210 Nicotine dependence, cigarettes, uncomplicated
CPT/HCPCS: 93005; 94640; 99284; 36415; 85025; 80053; 84484; 82803; 83880; 74022; 93010; J3490 ×3; A9270; J7620

== ENCOUNTER 2019-01-28 01:40 | Emergency (ER) | payer MEDICARE, MEDICAID ==
[2019-01-28] MEDS ORDERED: NORMAL SALINE 1000 ML 1,000 ML IV ONE (02:29)
[2019-01-28] MEDS ORDERED: ONDANSETRON HCL INJ/PF 4 MG/2 ML SDV IV ONE (02:29)
[2019-01-28] MEDS ORDERED: KETOROLAC TROMETHAMINE INJ/PF 30 MG/1 ML SDV IV ONE (02:29)
--- NOTE | 2019-01-28 02:41 | ER Document Report ---
ED GI/ - General Chief Complaint: Constipation Stated Complaint: ABDOMNAL PAIN Time Seen by Provider: 01/28/19 02:08 Primary Care Provider: [facility] [Provider Group] - Follow up as needed Notes: Patient is a 63-year-old male that comes emergency department for chief complaint of abdominal pain and swelling. He states that he has not had a bowel movement for 7 days now. He was evaluated here yesterday, had an enema, stool softener prescriptions, he has already tried multiple methods at home including stool softeners, enemas, castor oil, and magnesium citrate. He states that despite all this he still has not had a bowel movement. He states he gave himself another enema earlier and a little bit of loose stool and possibly gas came out but no other results. He denies vomiting, fever, however he feels that the pain is worse. He states that he has not been passing gas aside from the self enema attempt. He is on oxycodone and morphine, however he denies ever using a stool softener in the past or having problems with constipation. Past medical history includes COPD, current smoker, hypertension, and hernia repair. TRAVEL OUTSIDE OF THE [place] IN LAST 30 DAYS: No - Related Data Allergies/Adverse Reactions: No Known Allergies Allergy (Verified 01/27/19 12:18) Past Medical History - General Information source: Patient - Social History Smoking Status: Current Every Day Smoker Smoking Education Provided: Yes - <3 min Frequency of alcohol use: None Drug Abuse: None Lives with: Family Family History: Reviewed & Not Pertinent - Past Medical History Cardiac Medical History: Reports: Hx Hypercholesterolemia, Hx Hypertension Pulmonary Medical History: Reports: Hx COPD Renal/ Medical History: Reports: Hx Kidney Stones. Denies: Hx Peritoneal Dialysis Musculoskeletal Medical History: Reports Hx Arthritis, Reports Hx Musculoskeletal Deformity Past Surgical History: Reports: Hx Herniorrhaphy - Immunizations Hx Diphtheria, Pertussis, Tetanus Vaccination: Yes Review of Systems - Review of Systems Constitutional: No symptoms reported EENT: No symptoms reported Cardiovascular: No symptoms reported Respiratory: No symptoms reported Gastrointestinal: See HPI Genitourinary: No symptoms reported Male Genitourinary: No symptoms reported Musculoskeletal: No symptoms reported Skin: No symptoms reported Hematologic/Lymphatic: No symptoms reported Neurological/Psychological: No symptoms reported Physical Exam - Vital signs Vitals: Temp Pulse Resp BP Pulse Ox 98.8 F 116 H 18 126/81 H 94 01/28/19 01:45 01/28/19 01:45 01/28/19 01:45 01/28/19 01:45 01/28/19 01:45 - Notes Notes: GENERAL: Appears mildly uncomfortable but not in severe distress HEAD: Normocephalic, atraumatic. EYES: Pupils equal, round, and reactive to light. Extraocular movements intact. ENT: Oral mucosa moist, tongue midline. Oropharynx unremarkable. Airway patent. Nares patent, no nasal septal hematoma, TM's intact. NECK: Full range of motion. Supple. Trachea midline. LUNGS: Clear to auscultation bilaterally, no wheezes, rales, or rhonchi. No respiratory distress. HEART: Mild tachycardia, normal rhythm. No murmur ABDOMEN: Distended with diffuse mild abdominal tenderness. Slightly more tender towards the umbilicus. There is a small umbilical hernia, however this is soft and reducible. GENITOURINARY: Deferred EXTREMITIES: Moves all 4 extremities spontaneously. No edema, normal radial and dorsalis pedis pulses bilaterally. No cyanosis. BACK: no cervical, thoracic, lumbar midline tenderness. No saddle anesthesia, normal distal neurovascular exam. Moves all extremities in full range of motion. NEUROLOGICAL: Alert and oriented x3. Normal speech. Cranial nerves II through XII grossly intact. PSYCH: Normal affect, normal mood. SKIN: Warm, dry, normal turgor. No rashes or lesions noted. Course - Re-evaluation Re-evalutation: Rectal exam was performed with Divina TEE at bedside, no fecal impaction was noted, there is no stool in the rectal vault. Patient does have distended abdomen, umbilical hernia without incarceration or noted tenderness, generalized abdominal tenderness. He states he is not passing gas. Concern for possible developing obstruction. He is not vomiting however and he does not look toxic. Vital signs are unremarkable except for initial tachycardia. He was given IV fluids. CBC without noted change, still shows elevated hemoglobin probably from long- term smoking. Chemistry generally unremarkable. Discussed with patient. CAT scan will be performed to rule out developing obstruction or other acute abnormality causing his constipation which he did not previously struggle with. Patient tolerated p.o. well without vomiting. CAT scan showing incidental findings including gallstones, spinal degenerative changes, renal cyst. Normal looking appendix, no obstruction or incarceration, no acute findings other than large stool load. Discussed with patient. Decision was made to provide him with lactulose, Phenergan on request, and he was given follow-up referral for surgical clinic, discussed return precautions in detail. Recheck heart rate was in the 90s to up to 104, improved from prior, similar to yesterday. Patient states he is ready to leave, states understanding and agreement with plan. - Vital Signs Vital signs: Temp Pulse Resp BP Pulse Ox 98.8 F 116 H 18 126/81 H 94 01/28/19 01:45 01/28/19 01:45 01/28/19 01:45 01/28/19 01:45 01/28/19 01:45 - Laboratory Result Diagrams: 01/28/19 02:40 01/28/19 02:40 Laboratory results interpreted by me: 01/28/19 01/28/19 02:40 02:40 Hgb 17.2 H Hct 51.1 H MCV 99 H RDW 14.1 H Chloride 97 L Carbon Dioxide 32 H Glucose 141 H Lipase 20.8 L Discharge - Discharge Clinical Impression: Abdominal pain Qualifiers: Abdominal location: generalized Qualified Code(s): R10.84 - Generalized abdominal pain Condition: Stable Disposition: HOME, SELF-CARE Additional Instructions: Your evaluation shows an umbilical hernia without incarceration. Follow-up with general surgery referral for management of this. Your CAT scan shows incidental findings of your spine, a cyst on your kidney, and gallstones as we discussed. There is a large amount of stool but there is no obstruction or concerning acute finding otherwise. I recommend taking the lactulose prescription provided for constipation, drink plenty fluids, follow-up with your primary care. Return if you worsen including vomiting, fever, if the hernia comes out and will not go back in, severe abdominal pain, or any other concerning or worsening symptoms. Prescriptions: RX: Lactulose 30 gm PO BID PRN #1 bottle PRN Reason: Promethazine HCl [Phenergan 25 mg Tablet] 25 mg PO Q6H PRN #15 tablet PRN Reason: Referrals: [facility] [Provider Group] - Follow up as needed
[2019-01-28 03:06] LABS: ABSOLUTE LYMPHOCYTES (AUTO) 1.4 10^3/uL (0.5-4.7); ABSOLUTE MONOCYTES (AUTO) 0.7 10^3/uL (0.1-1.4); ABSOLUTE NEUT (AUTO) 5.7 10^3/uL (1.7-8.2); BASOPHILS % (AUTO) 0.6 % (0-2); EOSINOPHILS % (AUTO) 0.3 % (0-6); HEMATOCRIT 51.1 % (37.9-51.0); HEMOGLOBIN 17.2 g/dL (13.5-17.0); LYMPHOCYTES % (AUTO) 18.2 % (13-45); MEAN CORPUSCULAR HEMOGLOBIN 33.3 pg (27.0-33.4); MEAN CORPUSCULAR HGB CONC 33.7 g/dL (32.0-36.0); MEAN CORPUSCULAR VOLUME 99 fl (80-97); MONOCYTES % (AUTO) 8.9 % (3-13); PLATELET COUNT 171 10^3/uL (150-450); RED BLOOD COUNT 5.17 10^6/uL (4.35-5.55); RED CELL DISTRIBUTION WIDTH 14.1 % (11.5-14.0); TOTAL CELLS COUNTED % (AUTO) 100 %
[2019-01-28 03:08] LABS: ALANINE AMINOTRANSFERASE 27 U/L (21-72); ALKALINE PHOSPHATASE 77 U/L (38-126); ANION GAP 10 (5-19); ASPARTATE AMINO TRANSFERASE 26 U/L (17-59); BILIRUBIN,DIRECT 0.3 mg/dL (0.0-0.4); BILIRUBIN,TOTAL 0.8 mg/dL (0.2-1.3); BLOOD UREA NITROGEN 14 mg/dL (7-20); CALCIUM 9.5 mg/dL (8.4-10.2); CARBON DIOXIDE 32 mmol/L (22-30); CHLORIDE 97 mmol/L (98-107); GLUCOSE 141 mg/dL (75-110); LIPASE 20.8 U/L (23-300); POTASSIUM 4.5 mmol/L (3.6-5.0); SODIUM 139.3 mmol/L (137-145); TOTAL PROTEIN 6.8 g/dL (6.3-8.2)
--- NOTE | 2019-01-28 06:07 | RADIOLOGY REPORT (SQ) ---
EXAM DESCRIPTION: CT ABDOMEN PELVIS WITH IV CONTRAST COMPLETED DATE/TME: 01/28/2019 00:00 CLINICAL HISTORY: 63 years, Male, not passing gas/stool, abd distension and pain COMPARISON: 05/27/2018 TECHNIQUE: Axial CT images of the abdomen and pelvis were obtained after the administration of IV and oral contrast. Sagittal and coronal reformats were performed. DLP 2040 Images stored on PACS. All CT scanners at this facility use dose modulation, iterative reconstruction, and/or weight based dosing when appropriate to reduce radiation dose to as low as reasonably achievable (ALARA). [facility]: Dose Right [facility]: CareDose [facility]: Dose Right [facility]: Teradose 4D [facility]: Cloud 66 LIMITATIONS: None. FINDINGS: Lung bases are clear. The liver contains subcentimeter hypodensities, which are too small to further characterize. Cholelithiasis. The pancreas, spleen, and adrenal glands appear unremarkable. There is a 3.7 cm right renal cyst. No evidence of urolithiasis or hydronephrosis bilaterally. There is a trace amount of free fluid within the pelvis. There is no free air. There are mild atherosclerotic calcifications of the abdominal aorta. The stomach and small bowel are unremarkable. The appendix is normal. Fluid is noted within the right colon. There is a large amount of stool within the colon. No evidence of diverticulitis. The urinary bladder and prostate gland appear unremarkable. There is multilevel spondylosis. Again noted is a posterior disc osteophyte complex at L3-L4 which causes narrowing the spinal canal by approximately 7 mm in AP dimension. IMPRESSION: Cholelithiasis. Large amount of stool within the colon. Mild amount of free fluid within the pelvis, which is abnormal with no clear source. TECHNICAL DOCUMENTATION: Quality ID # 436: Final reports with documentation of one or more dose reduction techniques (e.g., Automated exposure control, adjustment of the mA and/or kV according to patient size, use of iterative reconstruction technique) copyright 2011 Department of [employer] and Human Services- All Rights Reserved
[2019-01-28] MEDS ORDERED: LACTULOSE SYRUP 20 GM/30 ML UDCUP PO ONE (06:16)
[2019-01-28 06:37] VITALS: BP 110/81
== END 2019-01-28 06:40 | disposition home or self-care (01) ==
LOC: ER 01:40
DX: R10.84 Generalized abdominal pain (principal); K59.00 Constipation, unspecified; R10.9 Unspecified abdominal pain; R14.0 Abdominal distension (gaseous); Z79.899 Other long term (current) drug therapy; J44.9 Chronic obstructive pulmonary disease, unspecified; F17.200 Nicotine dependence, unspecified, uncomplicated; I10 Essential (primary) hypertension
CPT/HCPCS: 99284; 96361; 96374; 96375; 36415; 83690; 85025; 80053; 74177; A9270; J1885; J2405; J7030

== ENCOUNTER 2019-01-29 16:19 | Inpatient (IN) | payer MEDICARE, MEDICAID ==
[2019-01-29] MEDS ORDERED: LACTULOSE SYRUP 20 GM/30 ML UDCUP PO ONE ×2 (16:38→18:16)
[2019-01-29] MEDS ORDERED: BISACODYL 5 MG TABEC PO ONE (16:38)
[2019-01-29] MEDS ORDERED: MINERAL OIL 30 ML UDCUP PR ONE ×2 (16:39→18:36)
--- NOTE | 2019-01-29 16:40 | ER Document Report ---
ED Medical Screen (RME) - General Chief Complaint: Abdominal Pain Stated Complaint: ABDOMINAL PAIN Time Seen by Provider: 01/29/19 16:36 Primary Care Provider: ANNABELLE PAYTON MD [Primary Care Provider] - Follow up as needed TRAVEL OUTSIDE OF THE [place] IN LAST 30 DAYS: No - HPI Notes: 01/29/19 16:39 Patient is a 63-year-old male with a history of chronic issues with constipation (on narcotics), COPD, current smoker, hypertension, and hernia repair who presents complaining of inability to have a bowel movement over the past 8 days and feeling distended. He has been here the previous 2 days for similar complaint/concern. Patient states that he was sent home on medicines yesterday, and perform them but was not able to have a bowel movement and presents for reevaluation. He had an unremarkable work-up and CT otherwise aside from "large amount of stool." Pt is also c/o SOB more than his usual with a cough. Denies GONZALEZ, fever, neck pain, CP, dysuria, back pain, or rash. Pt is hypoxic at 88-89% on RA (normal per pt is mid 90's). Pt placed on O2. I have treated and performed a rapid initial assessment of this patient. A comprehensive ED assessment and evaluation of the patient, analysis of test results and completion of medical decision making process will be conducted by additional ED providers. PHYSICAL EXAMINATION: GENERAL: Well-appearing, well-nourished and in no acute distress. A&Ox4. Answers questions appropriately. LUNGS: diminished at base, slight crackle LLL HEART: Regular rate and rhythm without murmurs, rubs, gallops. Abd: + mild distention. + generalized tenderness. - Related Data Allergies/Adverse Reactions: No Known Allergies Allergy (Verified 01/29/19 16:24) Past Medical History - Past Medical History Cardiac Medical History: Reports: Hx Hypercholesterolemia, Hx Hypertension Pulmonary Medical History: Reports: Hx COPD Renal/ Medical History: Reports: Hx Kidney Stones. Denies: Hx Peritoneal Dialysis Musculoskeltal Medical History: Reports Hx Arthritis, Reports Hx Musculoskeletal Deformity Past Surgical History: Reports: Hx Herniorrhaphy - Immunizations Hx Diphtheria, Pertussis, Tetanus Vaccination: Yes Doctor's Discharge - Discharge Referrals: ANNABELLE PAYTON MD [Primary Care Provider] - Follow up as needed
[2019-01-29] MEDS ORDERED: IPRATROPIUM/ALBUTEROL 0.5-2.5 MG/3 ML AMPUL NEB ONE (16:44)
[2019-01-29 17:24] LABS: VENOUS BLOOD BASE EXCESS 7.1 mmol/L; VENOUS BLOOD HCO3 33.9 mmol/L (20-32); VENOUS BLOOD PCO2 54.6 mmHg (35-63); VENOUS BLOOD PH 7.41 (7.30-7.42)
--- NOTE | 2019-01-29 17:28 | RADIOLOGY REPORT (SQ) ---
EXAM DESCRIPTION: KUB/ABDOMEN (SINGLE VIEW); CHEST SINGLE VIEW COMPLETED DATE/TIME: 01/29/2019 5:14 pm REASON FOR STUDY: constipated/abd pain, no BM in 8 days; sob COMPARISON: 01/27/2019 NUMBER OF VIEWS: Three views. TECHNIQUE: Frontal chest, supine abdomen and upright/decubitus abdomen radiographic images acquired. LIMITATIONS: None. FINDINGS: CHEST: Lungs clear of infiltrates. Similar basilar interstitial changes. Stable mediasti num appearance. FREE AIR: None identified. BOWEL GAS PATTERN: Non-specific pattern. Moderate colonic gas. No dilated small bowel loops or air fluid levels. CONSTIPATION: moderate. CALCIFICATIONS: No suspicious calcifications. HARDWARE: None in the abdomen. SOFT TISSUES: No gross mass or suggestion of organomegaly. BONES: No acute fracture. No worrisome bone lesions. OTHER: No other significant finding. IMPRESSION: Non-specific gas pattern. Moderate colonic gas. No dilated small bowel loops or air fl uid levels.. CONSTIPATION. TECHNICAL DOCUMENTATION: JOB ID: [id number] [place]-72 2010 [employer]- All Rights Reserved Reading location - IP/workstation name: [email or web address]
--- NOTE | 2019-01-29 17:28 | RADIOLOGY REPORT (SQ) ---
EXAM DESCRIPTION: KUB/ABDOMEN (SINGLE VIEW); CHEST SINGLE VIEW COMPLETED DATE/TIME: 01/29/2019 5:14 pm REASON FOR STUDY: constipated/abd pain, no BM in 8 days; sob COMPARISON: 01/27/2019 NUMBER OF VIEWS: Three views. TECHNIQUE: Frontal chest, supine abdomen and upright/decubitus abdomen radiographic images acquired. LIMITATIONS: None. FINDINGS: CHEST: Lungs clear of infiltrates. Similar basilar interstitial changes. Stable mediasti num appearance. FREE AIR: None identified. BOWEL GAS PATTERN: Non-specific pattern. Moderate colonic gas. No dilated small bowel loops or air fluid levels. CONSTIPATION: moderate. CALCIFICATIONS: No suspicious calcifications. HARDWARE: None in the abdomen. SOFT TISSUES: No gross mass or suggestion of organomegaly. BONES: No acute fracture. No worrisome bone lesions. OTHER: No other significant finding. IMPRESSION: Non-specific gas pattern. Moderate colonic gas. No dilated small bowel loops or air fl uid levels.. CONSTIPATION. TECHNICAL DOCUMENTATION: JOB ID: [id number] [place]-72 2010 [email or web address]- All Rights Reserved Reading location - IP/workstation name: [email or web address]
[2019-01-29 17:33] LABS: ABSOLUTE LYMPHOCYTES (AUTO) 1.1 10^3/uL (0.5-4.7); ABSOLUTE MONOCYTES (AUTO) 0.6 10^3/uL (0.1-1.4); ABSOLUTE NEUT (AUTO) 7.1 10^3/uL (1.7-8.2); BASOPHILS % (AUTO) 0.3 % (0-2); EOSINOPHILS % (AUTO) 0.1 % (0-6); HEMATOCRIT 50.7 % (37.9-51.0); HEMOGLOBIN 17.2 g/dL (13.5-17.0); LYMPHOCYTES % (AUTO) 12.3 % (13-45); MEAN CORPUSCULAR HEMOGLOBIN 33.6 pg (27.0-33.4); MEAN CORPUSCULAR HGB CONC 33.9 g/dL (32.0-36.0); MEAN CORPUSCULAR VOLUME 99 fl (80-97); MONOCYTES % (AUTO) 6.6 % (3-13); PLATELET COUNT 155 10^3/uL (150-450); RED BLOOD COUNT 5.13 10^6/uL (4.35-5.55); RED CELL DISTRIBUTION WIDTH 14.2 % (11.5-14.0); SEGMENTED NEUTROPHILS % (AUTO) 80.7 % (42-78); TOTAL CELLS COUNTED % (AUTO) 100 %; WHITE BLOOD COUNT 8.7 10^3/uL (4.0-10.5)
[2019-01-29 17:46] LABS: APPEARANCE,URINE SLIGHTLY-CLOUDY; BILIRUBIN,URINE SMALL (NEGATIVE); COLOR,URINE AMBER; GLUCOSE, URINE NEGATIVE (NEGATIVE); KETONES,URINE 20 mg/dL (NEGATIVE); LEUKOCYTE ESTERASE,URINE NEGATIVE (NEGATIVE); NITRITE,URINE NEGATIVE (NEGATIVE); PROTEIN,URINE 100 mg/dL (NEGATIVE); URINE SPECIFIC GRAVITY 1.028
[2019-01-29 17:47] LABS: ALANINE AMINOTRANSFERASE 28 U/L (21-72); ALBUMIN 3.9 g/dL (3.5-5.0); ALKALINE PHOSPHATASE 87 U/L (38-126); ANION GAP 10 (5-19); ASPARTATE AMINO TRANSFERASE 26 U/L (17-59); BILIRUBIN,DIRECT 0.4 mg/dL (0.0-0.4); BLOOD UREA NITROGEN 9 mg/dL (7-20); CALCIUM 9.7 mg/dL (8.4-10.2); CARBON DIOXIDE 34 mmol/L (22-30); CHLORIDE 94 mmol/L (98-107); GLUCOSE 135 mg/dL (75-110); LIPASE < 10.0 U/L (23-300); POTASSIUM 4.1 mmol/L (3.6-5.0); SODIUM 138.1 mmol/L (137-145); TOTAL PROTEIN 6.7 g/dL (6.3-8.2)
[2019-01-29 17:57] LABS: TROPONIN I 0.013 ng/mL
--- NOTE | 2019-01-29 18:23 | EKG REPORT ---
SEVERITY:- ABNORMAL ECG - SINUS TACHYCARDIA RBBB AND LPFB : Confirmed by: Scott Yan MD 29-Jan-2019 18:23:25
[2019-01-29] MEDS ORDERED: ONDANSETRON 4 MG TAB.RAPDIS PO ONE (19:35)
--- NOTE | 2019-01-29 19:37 | ER Document Report ---
ED General - General Chief Complaint: Abdominal Pain Stated Complaint: ABDOMINAL PAIN Time Seen by Provider: 01/29/19 16:36 Primary Care Provider: ANNABELLE PAYTON MD [Primary Care Provider] - Follow up as needed Notes: Patient is a 63-year-old male with a past medical history of chronic back pain with opiate dependence, presents for the third time in 3 days for constipation. Patient states that it has now been 9 days and he has yet been able to have a bowel movement. Describes generalized, cramping, moderate to severe abdominal pain that is constant in nature. Nothing seems to improve or worsen his symptoms. He has tried multiple methods without any relief of his constipation. This does include mag citrate, MiraLAX, stool softeners, castor oil and he has also received GoLYTELY and enemas in the emergency department without any relief. Nothing seems to worsen his symptoms. He denies ever having such significant constipation in the past. Does continue to use narcotics. Has not yet followed with his primary care doctor regarding today's concerns. TRAVEL OUTSIDE OF THE [place] IN LAST 30 DAYS: No - Related Data Allergies/Adverse Reactions: No Known Allergies Allergy (Verified 01/29/19 16:24) Past Medical History - General Information source: Patient - Social History Smoking Status: Current Every Day Smoker Frequency of alcohol use: None Drug Abuse: None Lives with: Family Family History: Reviewed & Not Pertinent Patient has suicidal ideation: No Patient has homicidal ideation: No - Past Medical History Cardiac Medical History: Reports: Hx Hypercholesterolemia, Hx Hypertension Pulmonary Medical History: Reports: Hx COPD Renal/ Medical History: Reports: Hx Kidney Stones. Denies: Hx Peritoneal Dialysis Musculoskeletal Medical History: Reports Hx Arthritis, Reports Hx Musculoskeletal Deformity Past Surgical History: Reports: Hx Herniorrhaphy - Immunizations Hx Diphtheria, Pertussis, Tetanus Vaccination: Yes Review of Systems - Review of Systems Notes: Constitutional: Negative for fever. HENT: Negative for sore throat. Eyes: Negative for visual changes. Cardiovascular: Negative for chest pain. Respiratory: Negative for shortness of breath. Gastrointestinal: Positive for abdominal pain, nausea, constipation Genitourinary: Negative for dysuria. Musculoskeletal: Negative for back pain. Skin: Negative for rash. Neurological: Negative for headaches, weakness or numbness. 10 point ROS negative except as marked above and in HPI. Physical Exam - Vital signs Vitals: Temp Pulse Resp BP Pulse Ox 97.9 F 115 H 20 141/96 H 85 L 01/29/19 16:41 01/29/19 16:41 01/29/19 16:41 01/29/19 16:41 01/29/19 16:41 Interpretation: Tachycardic, Hypoxic Notes: PHYSICAL EXAMINATION: GENERAL: Appears moderately uncomfortable but in no acute distress HEAD: Atraumatic, normocephalic. EYES: Pupils equal round and reactive to light, extraocular movements intact, sclera anicteric, conjunctiva are normal. ENT: nares patent, oropharynx clear without exudates. Moist mucous membranes. NECK: Normal range of motion, supple without lymphadenopathy LUNGS: Breath sounds clear to auscultation bilaterally and equal. No wheezes rales or rhonchi. HEART: Regular rate and rhythm without murmurs ABDOMEN: Distended, somewhat tense abdomen with diffuse generalized tenderness without focality, normoactive bowel sounds. No guarding, no rebound. No masses appreciated. EXTREMITIES: Normal range of motion, no pitting or edema. No cyanosis. NEUROLOGICAL: No focal neurological deficits. Moves all extremities spontaneously and on command. PSYCH: Normal mood, normal affect. SKIN: Warm, Dry, normal turgor, no rashes or lesions noted. Course - Re-evaluation Re-evalutation: 01/29/19 19:35 Patient presents with 9 days without having a bowel movement. The patient had a CT scan of the abdomen pelvis last evening that showed severe constipation but no other findings. No evidence of fecal impaction on digital rectal exam yesterday. Patient again today presents with continued to be unable to have a bowel movement. Patient has not followed instructions provided by 2 previous providers, states he did not take all the medications as prescribed. On exam he has a distended abdomen globally tender to palpation although no areas of rebound or guarding. He has had some nausea and did vomit of the lactulose that we attempted to give him here so I have ordered a repeat dose. Repeat two-view abdomen today again demonstrate severe constipation without evidence of obstruction. Do not believe repeat CT imaging is necessary as this was done less than 24 hours ago for the same complaint. Will continue to work to try to get the patient to have a bowel movement. 01/30/19 02:03 I have ordered a repeat CT scan the abdomen pelvis this patient has continued to be unable to have a bowel movement and I am increasingly concerned that he is having a bowel obstruction. This appears to demonstrate a marked distention of his colon. Patient continues to require supplemental oxygen as he desaturates into the mid 80s on room air likely secondary to market colonic distention causing diaphragmatic compression. 01/30/19 03:20 Patient continues to be unable to have a bowel movement, CT scan read is increasing colonic distention. Case has been discussed with Dr. Whittaker who agrees with NG tube placement and does not have any further recommendations at this time. Case discussed with Dr. Cuenca, has accepted for medical admission. - Vital Signs Vital signs: Temp Pulse Resp BP Pulse Ox 98.4 F 106 H 16 173/124 H 90 L 01/30/19 00:24 01/30/19 00:24 01/30/19 00:24 01/30/19 02:33 01/30/19 02:33 - Laboratory Result Diagrams: 01/29/19 16:53 01/29/19 16:53 Laboratory results interpreted by me: 01/29/19 01/29/19 01/29/19 16:53 16:53 16:53 Hgb 17.2 H MCV 99 H MCH 33.6 H RDW 14.2 H Seg Neutrophils % 80.7 H Lymphocytes % 12.3 L VBG HCO3 Chloride 94 L Carbon Dioxide 34 H Glucose 135 H NT-Pro-B Natriuret Pep 992 H Lipase < 10.0 L Urine Protein Urine Ketones Urine Bilirubin Urine Urobilinogen 01/29/19 01/29/19 16:53 16:53 Hgb MCV MCH RDW Seg Neutrophils % Lymphocytes % VBG HCO3 33.9 H Chloride Carbon Dioxide Glucose NT-Pro-B Natriuret Pep Lipase Urine Protein 100 H Urine Ketones 20 H Urine Bilirubin SMALL H Urine Urobilinogen 2.0 H - Diagnostic Test Radiology reviewed: Image reviewed, Reports reviewed Discharge - Discharge Clinical Impression: Colon distention, Hypoxia Nausea and vomiting Qualifiers: Vomiting type: unspecified Vomiting Intractability: intractable Qualified Code(s): R11.2 - Nausea with vomiting, unspecified Condition: Fair Disposition: ADMITTED INPATIENT Admitting Provider: Bang (Hospitalist) Unit Admitted: Medical Floor Referrals: ANNABELLE PAYTON MD [Primary Care Provider] - Follow up as needed
[2019-01-29] MEDS ORDERED: DICYCLOMINE HCL INJ 20 MG/2 ML AMPULE IM ONE (20:30)
[2019-01-29] MEDS ORDERED: KETOROLAC TROMETHAMINE 60 MG/2 ML SDV IM ONE (20:30)
[2019-01-29] MEDS: MAGNESIUM CITRATE 296 ML BOTTLE PO ONE ×2 (20:37→22:32)
[2019-01-29] MEDS: LACTULOSE SYRUP 20 GM/30 ML UDCUP PO ONE ×2 (20:37→22:32)
[2019-01-29] MEDS ORDERED: RINGERS SOLUTION,LACTATED 1,000 ML IV ONE (22:26)
[2019-01-29] MEDS ORDERED: METOCLOPRAMIDE HCL INJ/PF 10 MG/2 ML SDV IV ONE (22:53)
[2019-01-30] MEDS ORDERED: CALCIUM CARBONATE 500 MG TAB.CHEW PO ONE (00:15)
[2019-01-30] MEDS ORDERED: MINERAL OIL 30 ML UDCUP PR ONE (00:16)
[2019-01-30] MEDS ORDERED: FAMOTIDINE 20 MG TABLET PO ONE (00:16)
[2019-01-30] MEDS ORDERED: DICYCLOMINE HCL INJ 20 MG/2 ML AMPULE IM ONE ×2 (00:50→03:35)
[2019-01-30] MEDS ORDERED: MIDAZOLAM 2 MG/2 ML INJ IV ONE (01:59)
--- NOTE | 2019-01-30 02:03 | RADIOLOGY REPORT (SQ) ---
EXAM DESCRIPTION: CT ABDOMEN PELVIS WITH IV CONTRAST COMPLETED DATE/TME: 01/30/2019 00:50 CLINICAL HISTORY: 63 years, Male, ongoing abdominal pain, vomiting COMPARISON: 01/28/2019 CT TECHNIQUE: 825 Images stored on PACS. All CT scanners at this facility use dose modulation, iterative reconstruction, and/or weight based dosing when appropriate to reduce radiation dose to as low as reasonably achievable (ALARA). [facility]: Dose Right [facility]: CareDose [facility]: Dose Right [facility]: Teradose 4D [facility]: [employer] LIMITATIONS: None. FINDINGS: The visualized lung bases are unremarkable. Osseous structures are grossly intact. Small hiatal hernia. Fatty infiltrative change to the liver. The spleen, adrenal glands are unremarkable. Fatty atrophy of the pancreas. Cholelithiasis. Partially exophytic right renal cyst, as before. Kidneys are otherwise grossly unremarkable. Large amount of stool in the colon, with a normal appendix. Distention of the cecum and colon with gas and stool, slightly worsened from the prior. Moderate atheromatous change There is a small amount of free fluid in the right paracolic gutter. No free air. IMPRESSION: Distention of the colon with gas and stool, slightly more progressed from the prior exam. Trace of free fluid in the right paracolic gutter. Normal appendix. No free air. Fatty liver. Simple right renal cyst. Cholelithiasis TECHNICAL DOCUMENTATION: Quality ID # 436: Final reports with documentation of one or more dose reduction techniques (e.g., Automated exposure control, adjustment of the mA and/or kV according to patient size, use of iterative reconstruction technique) copyright 2011 [employer]- All Rights Reserved
[2019-01-30] MEDS ORDERED: LIDOCAINE 5% (700 MG) TRANSDERMAL ADH..PATCH TP ONE (03:38)
[2019-01-30] MEDS ORDERED: KETOROLAC TROMETHAMINE INJ/PF 30 MG/1 ML SDV IV ONE (03:38)
--- NOTE | 2019-01-30 03:48 | RADIOLOGY REPORT (SQ) ---
Chest single view on 01/30/2019 at 3:05 AM CLINICAL INDICATION: NG tube placement COMPARISON: 01/29/2019 FINDINGS: NG tube extends into the stomach with its tip in the upper stomach in good position. There is minimal basilar atelectasis. The lungs are otherwise clear. Heart is upper limits normal for size. Hilar and mediastinal contours are within normal limits. No acute bony abnormality is noted. IMPRESSION: No acute disease.
[2019-01-30] MEDS ORDERED: MAG HYDROX/AL HYDROX/SIMETH SUSP 30 ML UDCUP PO PRN (04:26)
[2019-01-30] MEDS ORDERED: TEMAZEPAM 15 MG CAPSULE PO PRN (04:26)
[2019-01-30] MEDS ORDERED: ONDANSETRON HCL INJ/PF 4 MG/2 ML SDV IV PRN (04:26)
[2019-01-30] MEDS ORDERED: NICOTINE 21 MG/24 HR PATCH.TD24 TD PRN (04:33)
[2019-01-30] MEDS ORDERED: MORPHINE SULFATE 10 MG/ML INJ IV PRN ×3 (04:35→10:03)
[2019-01-30] MEDS ORDERED: LEVALBUTEROL HCL NEB 0.63 MG/3 ML AMPUL NEB PRN (04:36)
[2019-01-30] MEDS ORDERED: HYDRALAZINE HCL INJ/PF 20 MG/1 ML SDV IV PRN ×2 (05:57→06:19)
[2019-01-30 06:20] LABS: FREE T3 3.65 pg/mL (2.77-5.27); FREE T4 (FREE THYROXINE) 1.4 ng/dL (0.78-2.19)
[2019-01-30 06:34] LABS: THYROID STIMULATING HORMONE 0.59 uIU/mL (0.47-4.68)
[2019-01-30] MEDS ORDERED: FENTANYL CITRATE INJ/PF 100 MCG/2 ML AMPUL IV ONE (06:34)
[2019-01-30] MEDS ORDERED: DEXTROSE 40% GEL 15 GM TUBE PO PRN ×2 (06:38)
[2019-01-30] MEDS ORDERED: GLUCAGON,HUMAN RECOMB 1 MG INJ SUBCUT PRN (06:38)
[2019-01-30] MEDS ORDERED: DEXTROSE 50%-WATER 25 GM/50 ML DISP.SYRIN IV PRN ×2 (06:38)
[2019-01-30] MEDS ORDERED: BISACODYL 5 MG TABEC PO ONE (06:39)
[2019-01-30] MEDS: HEPARIN SOD (PORCINE) 5,000 UNIT/ML 1 ML SYRINGE SUBCUT SCH ×2 (06:50→13:42)
[2019-01-30] MEDS ORDERED: METOPROLOL TARTRATE PF/INJ 5 MG/5 ML SDV IV ONE (07:00)
[2019-01-30] MEDS ORDERED: ENALAPRILAT DIHYDRATE INJ/PF 1.25 MG/1 ML SDV IV ONE (07:00)
--- NOTE | 2019-01-30 07:38 | PDOC CONSULTATION ---
Consultation Consult Date: 01/30/19 Provider Consulted: PEDRO ANDUJAR Consult reason:: Narcotic induced constipation History of Present Illness Admission Date/PCP: 01/30/19 03:39 ANNABELLE PAYTON MD History of Present Illness: ISRAEL ZAMORA is a 63 year old male patient present with constipation going on for several days multiple attempts tried to make patient have bowel movement abd x ray consistent with distension patient admitted has NG tube, surgery consulted and did not feel that patient has a surgical abdomen use of narcotics is present due to chronic pain syndrome trial of Symproic or Relistor may be necessary also there is a new promotility agent called Motegrity that is available use of narcotics should be decreased if possible Past Medical History Cardiac Medical History: Reports: Hyperlipidema, Hypertension Pulmonary Medical History: Reports: Chronic Obstructive Pulmonary Disease (COPD) Denies: Asthma EENT Medical History: Denies: Cataracts, Ears - Hearing aids Neurological Medical History: Denies: Hemorrhagic CVA, Ischemic CVA, Seizures Endocrine Medical History: Denies: Diabetes Mellitus Type 1, Diabetes Mellitus Type 2, Hyperthyroidism, Hypothyroidism Renal/ Medical History: Denies: Chronic Kidney Disease, Nephrolithiasis Malignancy Medical History: Reports: None GI Medical History: Denies: Cirrhosis, Hepatitis Musculoskeltal Medical History: Reports: Arthritis - Bilateral hip pain, Other - Chronic pain from degenerative disc disease lumbar area Denies: Gout Skin Medical History: Denies: Eczema, Psoriasis Psychiatric Medical History: Reports: Tobacco Dependency, Other - Chronic pain Denies: Alcohol Dependency, Substance Abuse Traumatic Medical History: Reports: None Hematology: Denies: Anemia, Bleeding Tendencies Infectious Medical History: Reports: None Past Surgical History Past Surgical History: Reports: Herniorrhaphy Social History Lives with: Family Smoking Status: Current Every Day Smoker Cigarettes Packs Per Day: 1 Frequency of Alcohol Use: Heavy Hx Recreational Drug Use: No Drugs: None Hx Prescription Drug Abuse: No - Advance Directive Resuscitation Status: Full Code Family History Family History: Malignancy Parental Family History Reviewed: Yes Children Family History Reviewed: Unknown Sibling(s) Family History Reviewed.: Unknown Medication/Allergy Home Medications: Lorazepam [Ativan 1 mg Tablet] 1 mg PO TID 12/02/12 Metoprolol Succinate [Toprol Xl 25 mg Tab.sr] 25 mg PO BID 12/02/12 Oxycodone HCl 30 mg PO QID 12/02/12 Pravastatin Sodium [Pravachol] 40 mg PO QHS 12/02/12 Testosterone [Androgel] 5 gm TD DAILY 12/02/12 Oxycodone HCl [Roxicodone] 30 mg PO QID PRN #8 tablet 12/26/12 Folic Acid [Folvite 1 mg Tablet] 1 mg PO DAILY #0 tablet 03/03/13 Multivitamin [Tab-A-Floyd (Multiple Vitamin) Tablet] 1 tab PO DAILY #0 tablet 03/03/13 Nicotine [Nicoderm 21 mg/24 Hr Transderm Patch] 1 each TD DAILYP PRN #0 patch.td 24 03/03/13 Hydrocodone Bit/Acetaminophen [Vicodin 5-325 mg Tablet] 1 - 2 tab PO ASDIR PRN #15 tablet 03/12/13 Prednisone [Deltasone 20 mg Tablet] 2 tab PO DAILY 5 Days tablet 11/23/18 Methylnaltrexone [place] [Relistor] 450 mg PO DAILY #9 tablet 01/27/19 Peg 3350/Na Sulf,Bicarb,Cl/KCl [Golytely Solution 4000 ml] 4,000 ml PO DAILY #1 bottle 01/27/19 Lactulose 30 gm PO BID PRN #1 bottle 01/28/19 Promethazine HCl [Phenergan 25 mg Tablet] 25 mg PO Q6H PRN #15 tablet 01/28/19 Allergies/Adverse Reactions: No Known Allergies Allergy (Verified 01/29/19 16:24) Review of Systems Constitutional: ABSENT: fever(s), headache(s), night sweats Eyes: ABSENT: visual disturbances Ears: ABSENT: hearing changes Nose, Mouth, and Throat: ABSENT: mouth pain, sore throat Cardiovascular: ABSENT: edema, palpitations Respiratory: ABSENT: hemoptysis Gastrointestinal: PRESENT: bloating. ABSENT: hematochezia, melena Genitourinary: ABSENT: dysuria, hematuria Musculoskeletal: ABSENT: deformity, joint swelling Integumentary: ABSENT: lesions, pruritus Neurological: ABSENT: syncope, tingling, tremor(s), vertigo Endocrine: ABSENT: polydipsia, polyphagia, polyuria Hematologic/Lymphatic: ABSENT: easy bruising Physical Exam Vital Signs: Temp Pulse Resp BP Pulse Ox 98.4 F 106 H 16 141/96 H 94 01/30/19 00:24 01/30/19 00:24 01/30/19 00:24 01/30/19 07:20 01/30/19 07:26 Intake & Output 01/29/19 01/30/19 01/31/19 06:59 06:59 06:59 Intake Total 1000 Balance 1000 Weight 104.5 kg General appearance: PRESENT: mild distress, well-developed, well-nourished Head exam: PRESENT: atraumatic, normocephalic Eye exam: PRESENT: EOMI, PERRLA. ABSENT: nystagmus, periorbital swelling, scleral icterus Mouth exam: PRESENT: moist, neck supple Throat exam: ABSENT: tonsillar exudate, tonsillogmegaly Neck exam: ABSENT: meningismus, tenderness, thyromegaly Respiratory exam: PRESENT: symmetrical, unlabored. ABSENT: wheezes Cardiovascular exam: PRESENT: RRR, +S1, +S2 GI/Abdominal exam: PRESENT: diminished bowel sounds, distended. ABSENT: Polo's sign, rebound Musculoskeletal exam: PRESENT: full ROM Neurological exam: PRESENT: oriented to time, oriented to situation, CN II-XII grossly intact Focused psych exam: ABSENT: restlessness Skin exam: PRESENT: normal color. ABSENT: mottled, pallor, urticaria, vesicles Results Laboratory Results: 01/29/19 16:53 01/29/19 16:53 01/29/19 01/29/19 01/29/19 16:53 16:53 16:53 WBC 8.7 RBC 5.13 Hgb 17.2 H Hct 50.7 MCV 99 H MCH 33.6 H MCHC 33.9 RDW 14.2 H Plt Count 155 Seg Neutrophils % 80.7 H Lymphocytes % 12.3 L Monocytes % 6.6 Eosinophils % 0.1 Basophils % 0.3 Absolute Neutrophils 7.1 Absolute Lymphocytes 1.1 Absolute Monocytes 0.6 Absolute Eosinophils 0.0 Absolute Basophils 0.0 VBG pH 7.41 VBG pCO2 54.6 VBG HCO3 33.9 H VBG Base Excess 7.1 Sodium 138.1 Potassium 4.1 Chloride 94 L Carbon Dioxide 34 H Anion Gap 10 BUN 9 Creatinine 0.80 Est GFR ( Amer) > 60 Est GFR (Non-Af Amer) > 60 Glucose 135 H Calcium 9.7 Total Bilirubin 1.0 AST 26 ALT 28 Alkaline Phosphatase 87 Total Protein 6.7 Albumin 3.9 Lipase < 10.0 L TSH Free T4 Free T3 pg/mL Urine Color Urine Appearance Urine pH Ur Specific [place] Urine Protein Urine Glucose (UA) Urine Ketones Urine Blood Urine Nitrite Ur Leukocyte Esterase Urine WBC (Auto) Urine RBC (Auto) 01/29/19 01/29/19 16:53 16:53 WBC RBC Hgb Hct MCV MCH MCHC RDW Plt Count Seg Neutrophils % Lymphocytes % Monocytes % Eosinophils % Basophils % Absolute Neutrophils Absolute Lymphocytes Absolute Monocytes Absolute Eosinophils Absolute Basophils VBG pH VBG pCO2 VBG HCO3 VBG Base Excess Sodium Potassium Chloride Carbon Dioxide Anion Gap BUN Creatinine Est GFR ( Amer) Est GFR (Non-Af Amer) Glucose Calcium Total Bilirubin AST ALT Alkaline Phosphatase Total Protein Albumin Lipase TSH 0.59 Free T4 1.40 Free T3 pg/mL 3.65 Urine Color NAZANIN Urine Appearance SLIGHTLY-CLOUDY Urine pH 6.0 Ur Specific [place] 1.028 Urine Protein 100 H Urine Glucose (UA) NEGATIVE Urine Ketones 20 H Urine Blood NEGATIVE Urine Nitrite NEGATIVE Ur Leukocyte Esterase NEGATIVE Urine WBC (Auto) 1 Urine RBC (Auto) 1 01/29/19 16:53 Troponin I 0.013 NT-Pro-B Natriuret Pep 992 H Impressions: KUB X-Ray 01/29/19 16:38 IMPRESSION: Non-specific gas pattern. Moderate colonic gas. No dilated small bowel loops or air fluid levels.. CONSTIPATION. Abdomen/Pelvis CT 01/30/19 00:50 IMPRESSION: Distention of the colon with gas and stool, slightly more progressed from the prior exam. Trace of free fluid in the right paracolic gutter. Normal appendix. No free air. Fatty liver. Simple right renal cyst. Cholelithiasis TECHNICAL DOCUMENTATION: Quality ID # [id number]: Final reports with documentation of one or more dose reduction techniques (e.g., Automated exposure control, adjustment of the mA and/or kV according to patient size, use of iterative reconstruction technique) copyright 2011 [email or web address]- All Rights Reserved Chest X-Ray 01/30/19 02:43 IMPRESSION: No acute disease. Assessment & Plan - Diagnosis (1) Obstipation Plan: due to narcotic use traditional agents will not be useful trial of Symproic or Relistor may be useful use of Motegrity may afford some relief if available thru pharmacy once motility achieved, then use of Golytely will be needed may need colonoscopy at some point vs outpatient no further recommendations for now - Time Time Spent: 50 to 70 Minutes
[2019-01-30] MEDS: RINGERS SOLUTION,LACTATED 1,000 ML IV PRN ×2 (07:42→16:34)
[2019-01-30] MEDS: IPRATROPIUM BROMIDE 0.02% NEB 0.5 MG/2.5 ML AMPUL NEB SCH ×2 (08:33→16:53)
[2019-01-30] MEDS: LEVALBUTEROL HCL NEB 1.25 MG/3 ML AMPUL NEB SCH ×2 (08:33→16:53)
[2019-01-30] MEDS: BUDESONIDE NEB 0.5 MG/2 ML AMPUL NEB SCH ×2 (08:33→20:02)
[2019-01-30] MEDS ORDERED: FAMOTIDINE 20 MG TABLET PO SCH (10:00)
[2019-01-30] MEDS ORDERED: FOLIC ACID 1 MG TABLET PO SCH (10:00)
[2019-01-30] MEDS ORDERED: METOPROLOL SUCCINATE 25 MG TAB.SR.24H PO SCH (10:00)
[2019-01-30] MEDS ORDERED: MULTIVITAMIN TABLET PO SCH (10:00)
[2019-01-30] MEDS: DOCUSATE SODIUM 100 MG CAPSULE PO SCH ×2 (11:00→18:41)
[2019-01-30] MEDS: LORAZEPAM 1 MG TABLET PO SCH ×3 (11:01→18:41)
[2019-01-30] MEDS: MORPHINE SULFATE 10 MG/ML INJ IV PRN ×3 (11:02→16:35)
[2019-01-30] MEDS: ENALAPRILAT DIHYDRATE INJ/PF 1.25 MG/1 ML SDV IV SCH ×2 (13:44→18:42)
[2019-01-30] MEDS: METOPROLOL TARTRATE PF/INJ 5 MG/5 ML SDV IV SCH ×2 (13:45→18:42)
--- NOTE | 2019-01-30 20:31 | Left Against Medical Advice ---
Against Medical Advice Admission Date/Time: 01/30/19 03:39 Primary Care Provider: ANNABELLE PAYTON MD Date of Patient Emigration: 01/30/19 - Patient refused further care and demanded discharge AGAINST MEDICAL ADVICE - Diagnosis: (1) Acute respiratory failure with hypoxia Is this a current diagnosis for this admission?: Yes (2) Constipation Is this a current diagnosis for this admission?: Yes (3) Colon distention Is this a current diagnosis for this admission?: Yes (4) Abdominal pain Is this a current diagnosis for this admission?: Yes (5) Nausea and vomiting Is this a current diagnosis for this admission?: Yes (6) Tobacco use disorder, severe, dependence Is this a current diagnosis for this admission?: Yes - Summary: Summary: Please see Admission and Progress Notes as well. ISRAEL ZAMORA is a 63 M, who LEFT AGAINST MEDICAL ADVICE. The Patient was admitted on 01/30/19 03:39. ISRAEL ZAMORA is a 63 year old male who presented to the emergency room with an 8-day history of constipation. Patient made his third consecutive daily ER visit with continued complaints of persistent constipation despite use of numerous laxative agents and enemas given in the emergency room. Additionally he acknowledged constant mild to moderate generalized abdominal pain with nausea and vomiting, and increased dyspnea. He admitted prior episodes of constipation but none as severe as the current episode. He has not identified any aggravating or ameliorating factors for his constipation. In the emergency room he was found to have a CT scan of the abdomen which showed a large amount of stool in his proximal sigmoid and descending colon as well as a marked gastric distention of the colon above the stool involving the splenic flexure, transverse colon and hepatic flexure areas. Some air-fluid levels were also noted throughout the colon. No evidence for true obstruction was noted. The remainder of his evaluation was unremarkable. He was also noted to be mildly hypoxic requiring supplemental oxygen to maintain an adequate oxygen saturation. He was subsequently admitted to hospital for further evaluation and treatment. On the evening of 01/30/2019 at 7:58 p.m. I was informed by the patient's nurse that he demanded to have his IV removed and he was leaving the hospital immediately. He was given discharge AGAINST MEDICAL ADVICE paperwork to sign and left the hospital without being further evaluated.
[2019-01-30 21:02] VITALS: BP 154/98
--- NOTE | 2019-01-31 06:02 | PDOC H&P ---
History of Present Illness Admission Date/PCP: 01/30/19 03:39 ANNABELLE PAYTON MD Patient complains of: Abdominal pain and distention. No bowel movement for 8 days. History of Present Illness: ISRAEL ZAMORA is a 63 year old male with chronic opiate use (MS Contin 30 mg twice daily and 15 mg of oxycodone 4 times daily as needed) for chronic back pain who presents not having had a bowel movement for 8 days. He states this is never happened before. He does not report the chronic use of any stool softeners. Normally has a bowel movement every day. He started to notice increased abdominal distention and increased pain as well as nausea and vomiting over the last 3 to 4 days. He continued to worsen and he presented to the emergency department. Several enemas as well as citrate of magnesia were given to the patient with no effect. Skin reveals moderate fecal load and distended colon. He was also noted to be hypertensive and short of breath. The breathing is likely due to pressure on the diaphragm from the abdominal distention and he does have a history of hypertension. He states he checks his blood pressure regularly and only takes his lisinopril intermittently. The patient was referred to the hospital service for admission. Please note, the patient provided a medical history which is somewhat lacking compared to the history that the emergency department providers were given. Past Medical History Cardiac Medical History: Reports: Hyperlipidema, Hypertension Pulmonary Medical History: Reports: Chronic Obstructive Pulmonary Disease (COPD) Denies: Asthma EENT Medical History: Denies: Cataracts, Ears - Hearing aids Neurological Medical History: Denies: Hemorrhagic CVA, Ischemic CVA, Seizures Endocrine Medical History: Denies: Diabetes Mellitus Type 1, Diabetes Mellitus Type 2, Hyperthyroidism, Hypothyroidism Renal/ Medical History: Denies: Chronic Kidney Disease, Nephrolithiasis Malignancy Medical History: Reports: None GI Medical History: Denies: Cirrhosis, Hepatitis Musculoskeltal Medical History: Reports: Arthritis - Bilateral hip pain, Other - Chronic pain from degenerative disc disease lumbar area Denies: Gout Skin Medical History: Denies: Eczema, Psoriasis Psychiatric Medical History: Reports: Tobacco Dependency, Other - Chronic pain Denies: Alcohol Dependency, Substance Abuse Traumatic Medical History: Reports: None Hematology: Denies: Anemia, Bleeding Tendencies Infectious Medical History: Reports: None Past Surgical History Past Surgical History: Reports: Herniorrhaphy Social History Information Source: Patient Occupation: Currently not working due to back pain Lives with: Family Smoking Status: Current Every Day Smoker Cigarettes Packs Per Day: 1 Frequency of Alcohol Use: Heavy Hx Recreational Drug Use: No Drugs: None Hx Prescription Drug Abuse: No Past Social History Note: Patient is with no children - Advance Directive Resuscitation Status: Full Code Surrogate healthcare decision maker:: His sister Kristy Gallo is the designated decision maker Family History Family History: Malignancy Parental Family History Reviewed: Yes - Mother breast cancer Father liver cancer Children Family History Reviewed: NA Sibling(s) Family History Reviewed.: Yes Medication/Allergy Home Medications: Lorazepam [Ativan 1 mg Tablet] 1 mg PO Q8HP PRN 12/02/12 Atorvastatin Calcium [Lipitor 40 mg Tablet] 40 mg PO QHS 01/30/19 Budesonide/Formoterol Fumarate [Symbicort Hfa 160-4.5 Mcg Inhaler 6 gm] 1 puff IH Q12 01/30/19 Metformin HCl [Glucophage 500 mg Tablet] 500 mg PO DAILY 01/30/19 Naloxone HCl [Narcan] 4 mg NS ASDIR PRN 01/30/19 Oxycodone HCl 15 mg PO Q6HP PRN 01/30/19 Allergies/Adverse Reactions: No Known Allergies Allergy (Verified 01/29/19 16:24) Review of Systems Constitutional: PRESENT: anorexia - Decreased appetite over the last several days. ABSENT: chills, fever(s), night sweats Eyes: ABSENT: visual disturbances Ears: ABSENT: hearing changes Nose, Mouth, and Throat: ABSENT: headache(s), mouth pain, sore throat Cardiovascular: ABSENT: chest pain, dyspnea on exertion, edema, palpitations Respiratory: PRESENT: dyspnea - Slightly uncomfortable to breathe due to abd ominal distention. ABSENT: cough, sputum Gastrointestinal: PRESENT: abdominal pain, bloating, constipation, nausea, vomiting. ABSENT: coffee ground emesis, diarrhea, heartburn Genitourinary: ABSENT: dysuria, hematuria Musculoskeletal: PRESENT: back pain, other - Hip pain Integumentary: ABSENT: erythema, lesions, rash, wounds Neurological: ABSENT: confusion, memory loss, tingling, tremor(s), weakness Psychiatric: ABSENT: anxiety, depression Endocrine: ABSENT: cold intolerance, heat intolerance, polydipsia, polyphagia Hematologic/Lymphatic: ABSENT: easy bleeding, easy bruising, lymphadenopathy Physical Exam Vital Signs: Temp Pulse Resp BP Pulse Ox 98.4 F 106 H 16 183/116 H 89 L 01/30/19 00:24 01/30/19 00:24 01/30/19 00:24 01/30/19 06:31 01/30/19 06:31 Intake & Output 01/28/19 01/29/19 01/30/19 06:59 06:59 06:59 Intake Total 1000 Balance 1000 Weight 104.5 kg General appearance: PRESENT: cooperative, severe distress, well-developed Head exam: PRESENT: atraumatic, normocephalic Eye exam: PRESENT: conjunctiva pink, EOMI. ABSENT: conjunctival injection Ear exam: PRESENT: normal external ear exam Mouth exam: PRESENT: dry mucosa, neck supple, tongue midline Neck exam: PRESENT: full ROM. ABSENT: carotid bruit, lymphadenopathy Respiratory exam: PRESENT: clear to auscultation massiel, symmetrical, other - Limited deep inspiration.. ABSENT: accessory muscle use, rales, rhonchi, tachypnea, wheezes Cardiovascular exam: PRESENT: +S1, +S2, systolic murmur - 1/6 systolic murmur, tachycardia Pulses: PRESENT: normal radial pulses, normal dorsalis pedis pul Vascular exam: ABSENT: pallor GI/Abdominal exam: PRESENT: distended, firm, hypoactive bowel sounds, tenderness - Diffusely tender, other - Tympanitic. ABSENT: guarding Rectal exam: PRESENT: deferred Gentrourinary exam: ABSENT: scrotal swelling Extremities exam: ABSENT: calf tenderness, joint swelling, pedal edema Musculoskeletal exam: PRESENT: normal inspection Neurological exam: PRESENT: alert, awake, oriented to person, oriented to place, oriented to time, oriented to situation, CN II-XII grossly intact. ABSENT: mot or sensory deficit Psychiatric exam: PRESENT: appropriate affect - Affect reflects his discomfort. ABSENT: agitated, anxious Focused psych exam: PRESENT: restlessness. ABSENT: delusional Skin exam: PRESENT: dry, normal color, warm. ABSENT: rash Results Laboratory Results: 01/29/19 16:53 01/29/19 16:53 01/29/19 01/29/19 01/29/19 16:53 16:53 16:53 WBC 8.7 RBC 5.13 Hgb 17.2 H Hct 50.7 MCV 99 H MCH 33.6 H MCHC 33.9 RDW 14.2 H Plt Count 155 Seg Neutrophils % 80.7 H Lymphocytes % 12.3 L Monocytes % 6.6 Eosinophils % 0.1 Basophils % 0.3 Absolute Neutrophils 7.1 Absolute Lymphocytes 1.1 Absolute Monocytes 0.6 Absolute Eosinophils 0.0 Absolute Basophils 0.0 VBG pH 7.41 VBG pCO2 54.6 VBG HCO3 33.9 H VBG Base Excess 7.1 Sodium 138.1 Potassium 4.1 Chloride 94 L Carbon Dioxide 34 H Anion Gap 10 BUN 9 Creatinine 0.80 Est GFR ( Amer) > 60 Est GFR (Non-Af Amer) > 60 Glucose 135 H Calcium 9.7 Total Bilirubin 1.0 AST 26 ALT 28 Alkaline Phosphatase 87 Total Protein 6.7 Albumin 3.9 Lipase < 10.0 L TSH Free T4 Free T3 pg/mL Urine Color Urine Appearance Urine pH Ur Specific [place] Urine Protein Urine Glucose (UA) Urine Ketones Urine Blood Urine Nitrite Ur Leukocyte Esterase Urine WBC (Auto) Urine RBC (Auto) 01/29/19 01/29/19 16:53 16:53 WBC RBC Hgb Hct MCV MCH MCHC RDW Plt Count Seg Neutrophils % Lymphocytes % Monocytes % Eosinophils % Basophils % Absolute Neutrophils Absolute Lymphocytes Absolute Monocytes Absolute Eosinophils Absolute Basophils VBG pH VBG pCO2 VBG HCO3 VBG Base Excess Sodium Potassium Chloride Carbon Dioxide Anion Gap BUN Creatinine Est GFR ( Amer) Est GFR (Non-Af Amer) Glucose Calcium Total Bilirubin AST ALT Alkaline Phosphatase Total Protein Albumin Lipase TSH 0.59 Free T4 1.40 Free T3 pg/mL 3.65 Urine Color NAZANIN Urine Appearance SLIGHTLY-CLOUDY Urine pH 6.0 Ur Specific [place] 1.028 Urine Protein 100 H Urine Glucose (UA) NEGATIVE Urine Ketones 20 H Urine Blood NEGATIVE Urine Nitrite NEGATIVE Ur Leukocyte Esterase NEGATIVE Urine WBC (Auto) 1 Urine RBC (Auto) 1 01/29/19 16:53 Troponin I 0.013 NT-Pro-B Natriuret Pep 992 H Impressions: KUB X-Ray 01/29/19 16:38 IMPRESSION: Non-specific gas pattern. Moderate colonic gas. No dilated small bowel loops or air fluid levels.. CONSTIPATION. Abdomen/Pelvis CT 01/30/19 00:50 IMPRESSION: Distention of the colon with gas and stool, slightly more progressed from the prior exam. Trace of free fluid in the right paracolic gutter. Normal appendix. No free air. Fatty liver. Simple right renal cyst. Cholelithiasis TECHNICAL DOCUMENTATION: Quality ID # 436: Final reports with documentation of one or more dose reduction techniques (e.g., Automated exposure control, adjustment of the mA and/or kV according to patient size, use of iterative reconstruction technique) copyright 2011 [employer]- All Rights Reserved Chest X-Ray 01/30/19 02:43 IMPRESSION: No acute disease. Assessment and Plan - Diagnosis (1) Obstipation Is this a current diagnosis for this admission?: Yes Plan: Patient has failed to respond to a very aggressive regimen of conventional means. Dr. Ravi did see the patient and suggested newer agents for opioid- induced constipation. None are currently available on the formulary. I will speak with pharmacy about ordering 1 of these agents. (2) Abdominal pain Qualifiers: Abdominal location: generalized Qualified Code(s): R10.84 - Generalized abdominal pain Is this a current diagnosis for this admission?: Yes Plan: Abdominal pain and distention is direct result of the lack of bowel movement for 8 days. See above. (3) Colon distention Is this a current diagnosis for this admission?: Yes Plan: Again this is due to the constipation. Hopefully will be able to order a new agent. I think this will be most effective as opposed to conventional means. The patient should work with his primary care provider regarding regular use of an agent for opiate-induced constipation. (4) Nausea and vomiting Qualifiers: Vomiting type: unspecified Vomiting Intractability: non-intractable Qualified Code(s): R11.2 - Nausea with vomiting, unspecified Is this a current diagnosis for this admission?: Yes Plan: We will utilize antiemetics until the bowel function returns to normal. He does have an NG tube for suction. (5) Acute respiratory failure with hypoxia Is this a current diagnosis for this admission?: Yes Plan: The patient will be placed on nebulizer therapy. Although he denied COPD history for me, with his smoking history as well as the abdominal distention his breathing is somewhat difficult. Once the abdominal distention is resolved the breathing will get easier. He may benefit from a combination inhaler as an outpatient. (6) Tobacco use disorder, severe, dependence Is this a current diagnosis for this admission?: Yes Plan: Nicotine patch has been ordered. (7) Hypertension Qualifiers: Hypertension type: essential hypertension Qualified Code(s): I10 - Essential (primary) hypertension Is this a current diagnosis for this admission?: Yes Plan: As he currently has a nasogastric tube to low wall suction we will utilize intravenous medications for blood pressure control and revert to oral medications as soon as possible. - Time Time Spent with patient: 35 or more minutes Smoking Cessation Education: 3 to 10 minutes Medications reviewed and adjusted accordingly: Yes Anticipated discharge: Home - Inpatient Certification Based on my medical assessment, after consideration of the patient's comorbidi ties, presenting symptoms, or acuity I expect that the services needed warrant INPATIENT care.: Yes I certify that my determination is in accordance with my understanding of Edy weems's requirements for reasonable and necessary INPATIENT services [42 CFR 412.3e].: Yes Medical Necessity: Need For IV Fluids, Need for Nebulizer Therapy and Monitoring of Response, Need for Pain Control, Risk of Complication if Not Cared For in Hospital
== END 2019-01-30 20:17 | disposition left against medical advice (07) | DRG 391 ==
LOC: ER 16:19 → EH 01-30 03:39 → 2N 01-30 09:00
PROVIDERS: ADMIT Emergency Medicine; ATTEND Emergency Medicine
PROC: 0D9670Z Drainage of Stomach with Drainage Device, Via Natural or Artificial Opening (ICD-10-PCS; principal; 2019-01-30)
DX: K59.03 Drug induced constipation (principal); J96.01 Acute respiratory failure with hypoxia; F11.20 Opioid dependence, uncomplicated; I10 Essential (primary) hypertension; E78.5 Hyperlipidemia, unspecified; M54.9 Dorsalgia, unspecified; J44.9 Chronic obstructive pulmonary disease, unspecified; T40.605A Adverse effect of unspecified narcotics, initial encounter; G89.4 Chronic pain syndrome; F17.210 Nicotine dependence, cigarettes, uncomplicated; Z79.899 Other long term (current) drug therapy; Z79.84 Long term (current) use of oral hypoglycemic drugs
CPT/HCPCS: 36415; 71045; 74018; 74022; 74177; 80053; 81001; 82803; 82962; 83690; 83880; 84439; 84443; 84481; 84484; 85025; 93005; 93010; 94640; 96361; 96372; 96374; 96375; 99284; 99285; J0360; J0500; J1644; J1885; J2250; J2270; J2405; J2765; J3010; J3490; J7030; J7120; J7620; S0119

== ENCOUNTER 2019-12-01 13:02 | Inpatient (IN) | payer MEDICARE, MEDICAID ==
[2019-12-01] MEDS ORDERED: ONDANSETRON HCL INJ/PF 4 MG/2 ML SDV IV ONE (13:13)
[2019-12-01] MEDS ORDERED: NALOXONE HCL INJ/PF 0.4 MG/1 ML SDV IV ONE ×2 (13:13→13:24)
[2019-12-01] MEDS ORDERED: ONDANSETRON HCL INJ/PF 4 MG/2 ML SDV ONE (13:13)
--- NOTE | 2019-12-01 13:34 | ER Document Report ---
ED General - General Chief Complaint: Syncope Stated Complaint: POSSIBLE SYNCOPE Time Seen by Provider: 12/01/19 13:10 Primary Care Provider: ANNABELLE PAYTON MD [Primary Care Provider] - Follow up as needed TRAVEL OUTSIDE OF THE [place] IN LAST 30 DAYS: No - HPI Notes: Chief complaint: Altered mental status 64-year-old male with history of diabetes mellitus type 2 and chronic low back pain on morphine and OxyContin at home transported here via EMS for evaluation of altered mental status. EMS notes of blood sugar in the field of around 230. They did not administer Narcan. They reported that patient appeared mottled and had an irregular pulse with a rate variable from 60s to 150s and atrial field noted on the monitor. No further history was obtainable from the patient at this time due to altered mental status. - Related Data Allergies/Adverse Reactions: No Known Allergies Allergy (Verified 01/29/19 16:24) Past Medical History - General Information source: Emergency Med Personnel, [facility] Records Cannot obtain history due to: Altered mental status - Social History Smoking Status: Current Every Day Smoker Family History: Malignancy - Past Medical History Cardiac Medical History: Reports: Hx Hypercholesterolemia, Hx Hypertension Pulmonary Medical History: Reports: Hx COPD Denies: Hx Asthma Neurological Medical History: Denies: Hx Seizures Endocrine Medical History: Denies: Hx Diabetes Mellitus Type 1, Hx Diabetes Mellitus Type 2, Hx Hyperthyroidism, Hx Hypothyroidism Renal/ Medical History: Reports: Hx Kidney Stones. Denies: Hx Peritoneal Dialysis GI Medical History: Denies: Hx Cirrhosis, Hx Hepatitis Musculoskeletal Medical History: Reports Hx Arthritis - Bilateral hip pain, Denies Hx Gout, Reports Hx Musculoskeletal Deformity Skin Medical History: Denies Hx Eczema, Denies Hx Psoriasis Psychiatric Medical History: Denies: Hx Depression Infectious Medical History: Denies: Hx Hepatitis Past Surgical History: Reports: Hx Herniorrhaphy - Immunizations Hx Diphtheria, Pertussis, Tetanus Vaccination: Yes Review of Systems - Review of Systems -: Yes ROS unobtainable due to patient's medical condition Physical Exam - Vital signs Vitals: Resp 10 L 12/01/19 13:01 - Notes Notes: GENERAL: Male patient appearing approximately stated age who is pale cool and mottled and minimally responsive to painful stimuli with movement of all 4 extremities. SKIN: Pale cool and mottled. Ecchymoses of both forearms present. HEAD: Normocephalic atraumatic. EYES: Pupils are small equal sluggishly reactive to light. Gaze is conjugate. EARS: CANALS AND TMS CLEAR. NOSE: CLEAR. MOUTH: Moist mucosa. Good dentition. No stridor or edema. No drooling. NECK: No JVD. BACK: Symmetrical. CHEST: Respirations shallow, clear and symmetrical. HEART: Rapid irregularly irregular rhythm. No murmur gallop or rub. ABDOMEN: Large ventral hernia present epigastric area which is easily reducible. Soft nontender without organomegaly or rebound. Bowel sounds normally active. GENITALIA: Deferred. EXTREMITIES: No edema. Dorsalis pedis and posterior tibial pulses 2+ and symmetrical. NEUROLOGICAL: Obtunded. GCS 7 (E2 V2 M3). Moves all 4 extremities symmetrically in response to noxious stimuli. Course - Re-evaluation Re-evalutation: 12/01/19 13:34 Repeat fingerstick glucose here 230. Patient was given 1 mg of Narcan IV with minimal response. After second milligram he opened his eyes and attempted to climb out of bed. His initial O2 sat was about 50 on room air. I placed him on 100% nonrebreather. Between this and a Narcan his O2 saturation came up immedi ately to 98%. 12/01/19 18:01 Patient remains somewhat somnolent but easily arousable to verbal and tactile stimuli. He is oriented x3. His head CT showed no acute changes. He is converted back to a normal sinus rhythm spontaneously. Findings have been reviewed with the on-call hospitalist Dr. Christensen who will admit to [facility]. - Vital Signs Vital signs: Temp Pulse Resp BP Pulse Ox 99.2 F 18 105/85 96 12/01/19 13:03 12/01/19 16:01 12/01/19 16:00 12/01/19 16:01 - Laboratory Result Diagrams: 12/01/19 13:13 12/01/19 13:13 Laboratory results interpreted by me: 12/01/19 12/01/19 12/01/19 13:04 13:13 13:13 MCV 101 H RDW 15.8 H Carbonic Acid ABG pCO2 ABG pO2 ABG HCO3 ABG O2 Saturation Sodium 134.4 L Potassium 5.5 H Creatinine 1.72 H Est GFR ( Amer) 48 L Est GFR (MDRD) Non-Af 40 L Glucose 263 H POC Glucose 253 H Lactic Acid Magnesium 1.5 L NT-Pro-B Natriuret Pep Urine Protein Urine Glucose (UA) Urine Ketones Urine Urobilinogen Acetaminophen < 10 L 12/01/19 12/01/19 12/01/19 13:13 13:13 13:32 MCV RDW Carbonic Acid ABG pCO2 ABG pO2 ABG HCO3 ABG O2 Saturation Sodium Potassium Creatinine Est GFR ( Amer) Est GFR (MDRD) Non-Af Glucose POC Glucose Lactic Acid 3.8 H Magnesium NT-Pro-B Natriuret Pep 9900 H Urine Protein 100 H Urine Glucose (UA) 50 H Urine Ketones TRACE H Urine Urobilinogen 2.0 H Acetaminophen 12/01/19 14:07 MCV RDW Carbonic Acid 1.43 H ABG pCO2 47.4 H ABG pO2 55.1 L ABG HCO3 25.3 H ABG O2 Saturation 86.9 L Sodium Potassium Creatinine Est GFR ( Amer) Est GFR (MDRD) Non-Af Glucose POC Glucose Lactic Acid Magnesium NT-Pro-B Natriuret Pep Urine Protein Urine Glucose (UA) Urine Ketones Urine Urobilinogen Acetaminophen - Diagnostic Test Radiology results interpreted by me: 12/01/19 18:01 Per radiologist chest x-ray shows cardiomegaly and vascular congestion - EKG Interpretation by Me Additional EKG results interpreted by me: 12/01/19 18:01 Twelve-lead EKG on arrival showed atrial fibrillation with a rate of 104 Critical Care Note - Critical Care Note Total time excluding time spent on procedures (mins): 35 - Administration of Narcan Discharge - Discharge Clinical Impression: Opiate intoxication Altered mental status Qualifiers: Altered mental status type: stupor Qualified Code(s): R40.1 - Stupor Congestive heart failure Qualifiers: Heart failure type: unspecified Heart failure chronicity: unspecified Qualified Code(s): I50.9 - Heart failure, unspecified Condition: Serious Disposition: ADMITTED INPATIENT Admitting Provider: Amparo (Hospitalist) Unit Admitted: IMCU Referrals: ANNABELLE PAYTON MD [Primary Care Provider] - Follow up as needed
[2019-12-01 13:38] LABS: ABSOLUTE EOSINOPHILS # (AUTO) 0.1 10^3/uL (0.0-0.6); ABSOLUTE LYMPHOCYTES (AUTO) 3.6 10^3/uL (0.5-4.7); ABSOLUTE MONOCYTES (AUTO) 0.8 10^3/uL (0.1-1.4); ABSOLUTE NEUT (AUTO) 4.7 10^3/uL (1.7-8.2); BASOPHILS % (AUTO) 0.5 % (0-2); EOSINOPHILS % (AUTO) 0.7 % (0-6); HEMATOCRIT 45.8 % (37.9-51.0); HEMOGLOBIN 15.2 g/dL (13.5-17.0); LYMPHOCYTES % (AUTO) 39.4 % (13-45); MEAN CORPUSCULAR HEMOGLOBIN 33.4 pg (27.0-33.4); MEAN CORPUSCULAR HGB CONC 33.2 g/dL (32.0-36.0); MEAN CORPUSCULAR VOLUME 101 fl (80-97); MONOCYTES % (AUTO) 8.9 % (3-13); PLATELET COUNT 174 10^3/uL (150-450); RED BLOOD COUNT 4.56 10^6/uL (4.35-5.55); RED CELL DISTRIBUTION WIDTH 15.8 % (11.5-14.0); SEGMENTED NEUTROPHILS % (AUTO) 50.5 % (42-78); TOTAL CELLS COUNTED % (AUTO) 100 %; WHITE BLOOD COUNT 9.2 10^3/uL (4.0-10.5)
[2019-12-01 13:55] LABS: ACETAMINOPHEN < 10 ug/mL (10-30); ALBUMIN 4.1 g/dL (3.5-5.0); ALCOHOL < 10 mg/dL (NONE DETECTED); ALKALINE PHOSPHATASE 92 U/L (38-126); ANION GAP 8 (5-19); ASPARTATE AMINO TRANSFERASE 53 U/L (17-59); BILIRUBIN,DIRECT 0.1 mg/dL (0.0-0.4); BILIRUBIN,TOTAL 1.1 mg/dL (0.2-1.3); BLOOD UREA NITROGEN 20 mg/dL (7-20); CALCIUM 9.2 mg/dL (8.4-10.2); CARBON DIOXIDE 27 mmol/L (22-30); CHLORIDE 99 mmol/L (98-107); GLUCOSE 263 mg/dL (75-110); POTASSIUM 5.5 mmol/L (3.6-5.0); TOTAL PROTEIN 6.7 g/dL (6.3-8.2)
[2019-12-01 14:02] LABS: APPEARANCE,URINE SLIGHTLY-CLOUDY; BILIRUBIN,URINE NEGATIVE (NEGATIVE); COLOR,URINE YELLOW; GLUCOSE, URINE 50 mg/dL (NEGATIVE); KETONES,URINE TRACE mg/dL (NEGATIVE); PROTEIN,URINE 100 mg/dL (NEGATIVE); URINE SPECIFIC GRAVITY 1.021
[2019-12-01 14:07] LABS: TROPONIN I 0.094 ng/mL
[2019-12-01 14:10] LABS: URINE AMPHETAMINES SCREEN NEGATIVE; URINE BARBITURATES SCREEN NEGATIVE; URINE BENZODIAZEPINES SCREEN NEGATIVE; URINE COCAINE SCREEN NEGATIVE; URINE MARIJUANA (THC) SCREEN NEGATIVE; URINE METHADONE SCREEN NEGATIVE; URINE PHENCYCLIDINE SCREEN NEGATIVE
[2019-12-01] MEDS ORDERED: NALOXONE HCL INJ 2 MG/2 ML DISP.SYRIN IV ONE (14:15)
--- NOTE | 2019-12-01 14:15 | RADIOLOGY REPORT (SQ) ---
EXAM DESCRIPTION: CT HEAD WITHOUT IMAGES COMPLETED DATE/TIME: 12/01/2019 2:01 pm REASON FOR STUDY: AMS COMPARISON: 11/23/2018 TECHNIQUE: Axial images acquired through the brain without intravenous contrast. Images reviewed wi th bone, brain and subdural windows. Additional sagittal and coronal reconstructions were generated. Images stored on PACS. All CT scanners at this facility use dose modulation, iterative reconstruction, and/or weight based d osing when appropriate to reduce radiation dose to as low as reasonably achievable (ALARA). [facility]: Dose Right [facility]: CareDose [facility]: Dose Right [facility]: Teradose 4D [facility]: [employer] RADIATION DOSE: CT Rad equipment meets quality standard of care and radiation dose reduction techniq ues were employed. CTDIvol: 53.2 mGy. DLP: 1017 mGy-cm. mGy. LIMITATIONS: None. FINDINGS: VENTRICLES: Normal size and contour. CEREBRUM: No masses. No hemorrhage. No midline shift. No evidence for acute infarction. Normal gra y/white matter differentiation. No areas of low density in the white matter. CEREBELLUM: No masses. No hemorrhage. No alteration of density. No evidence for acute infarction. EXTRAAXIAL SPACES: No fluid collections. No masses. ORBITS AND GLOBE: No intra- or extraconal masses. Normal contour of globe without masses. CALVARIUM: No fracture. PARANASAL SINUSES: No fluid or mucosal thickening. SOFT TISSUES: No mass or hematoma. OTHER: No other significant finding. IMPRESSION: NORMAL BRAIN CT WITHOUT CONTRAST. EVIDENCE OF ACUTE STROKE: NO. COMMENT: Quality ID # [id number]: Final reports with documentation of one or more dose reduction techniques (e.g., Automated exposure control, adjustment of the mA and/or kV according to patient size, use of iterative reconstruction technique) TECHNICAL DOCUMENTATION: JOB ID: [id number] 2010 [employer]- All Rights Reserved Reading location - IP/workstation name: [email or web address]
--- NOTE | 2019-12-01 14:17 | RADIOLOGY REPORT (SQ) ---
EXAM DESCRIPTION: CHEST SINGLE VIEW IMAGES COMPLETED DATE/TIME: 12/01/2019 2:05 pm REASON FOR STUDY: AMS COMPARISON: 01/30/2019 NUMBER OF VIEWS: One view. TECHNIQUE: Single frontal radiographic view of the chest acquired. LIMITATIONS: None. FINDINGS: LUNGS AND PLEURA: No opacities, masses or pneumothorax. No pleural effusion. MEDIASTINUM AND HILAR STRUCTURES: No masses or contour abnormality. HEART AND VASCULATURE: Cardiac enlargement. Vascular congestion. BONES: No acute findings. HARDWARE: None in the chest. OTHER: No other significant finding. IMPRESSION: CARDIAC ENLARGEMENT. VASCULAR CONGESTION. TECHNICAL DOCUMENTATION: JOB ID: [id number] 2010 [employer]- All Rights Reserved Reading location - IP/workstation name: [email or web address]
[2019-12-01 14:41] LABS: ARTERIAL BLOOD BASE EXCESS -0.8 mmol/L; ARTERIAL BLOOD H2CO3 1.43 mmol/L (1.05-1.35); ARTERIAL BLOOD HCO3 25.3 mmol/L (20-24); ARTERIAL BLOOD O2 SATURATION 86.9 % (94-98); ARTERIAL BLOOD PCO2 47.4 mmHg (35-45); ARTERIAL BLOOD PH 7.35 (7.35-7.45); ARTERIAL BLOOD PO2 55.1 mmHg (80-100); ARTERIAL BLOOD TOTAL CO2 26.8 mmol/L (23-27)
[2019-12-01 14:42] LABS: ARTERIAL BLOOD FIO2 3L
[2019-12-01] MEDS ORDERED: NORMAL SALINE 1000 ML 1,000 ML IV ONE (16:53)
[2019-12-01] MEDS ORDERED: NALOXONE HCL INJ 2 MG/2 ML DISP.SYRIN ONE (18:07)
[2019-12-01] MEDS ORDERED: ONDANSETRON HCL INJ/PF 4 MG/2 ML SDV IV PRN (18:27)
[2019-12-01] MEDS ORDERED: NORMAL SALINE 1000 ML 1,000 ML IV PRN (18:27)
[2019-12-01] MEDS ORDERED: GLUCAGON,HUMAN RECOMB 1 MG INJ IM PRN (18:33)
[2019-12-01] MEDS ORDERED: DEXTROSE 50%-WATER 25 GM/50 ML DISP.SYRIN IV PRN ×2 (18:33)
[2019-12-01] MEDS ORDERED: DEXTROSE 40% GEL 15 GM TUBE PO PRN ×2 (18:33)
--- NOTE | 2019-12-01 18:48 | PDOC H&P ---
History of Present Illness Admission Date/PCP: 12/01/19 18:22 ANNABELLE PAYTON MD Patient complains of: Altered mental status History of Present Illness: ISRAEL ZAMORA is a 64 year old male with a history of diabetes mellitus type 2, chronic pain on multiple narcotics, COPD, who presented to the hospital via EMS. Patient apparently has felt very dizzy today and lost consciousness with EMS present. Patient notably taking he is opioid medications today. Takes morphine at home. He was given Narcan in the field. On arrival in the ER patient was noted to be hypoxic with pulse ox of 36% on room air. Patient's respiratory rate was noted to be 10. Suspected to be in opiate overdose and giving another dose of Narcan. Patient has some improvement of mental status with administration of Narcan but subsequently became altered again. As such patient was placed on a Narcan drip which was discontinued about 30 minutes prior to encounter. Patient's mental status is improved and he is now responsive and able to answer questions. Patient does state he has been having some cough for the past 3 weeks and was told by his primary care provider that he had a pneumonia and given a Z-Dain and prednisone about 2 weeks ago which he never took until yesterday. However no x-ray was ever done to confirm whether he truly did have a pneumonia at that time. He denies any fevers at home. Denies any recent exposure. States it is that he stays at home with his mom who is in her 90s and pretty much takes care of her and only leaves the house to go to the grocery store. Chest x-ray in the ER does not reveal any pneumonia. Temperature minimally elevated at 99F however done shortly after patient was on the Narcan drip. Past Medical History Cardiac Medical History: Reports: Hyperlipidema, Hypertension Pulmonary Medical History: Reports: Chronic Obstructive Pulmonary Disease (COPD) Denies: Asthma Neurological Medical History: Denies: Seizures Endocrine Medical History: Reports: Diabetes Mellitus Type 2 Denies: Diabetes Mellitus Type 1, Hyperthyroidism, Hypothyroidism GI Medical History: Denies: Cirrhosis, Hepatitis Musculoskeltal Medical History: Reports: Arthritis - Bilateral hip pain Denies: Gout Skin Medical History: Denies: Eczema, Psoriasis Psychiatric Medical History: Denies: Depression Hematology: Denies: Anemia, Bleeding Tendencies Past Surgical History Past Surgical History: Reports: Herniorrhaphy Social History Smoking Status: Current Every Day Smoker Frequency of Alcohol Use: Heavy Hx Recreational Drug Use: No Drugs: None Hx Prescription Drug Abuse: No - Advance Directive Resuscitation Status: Full Code Family History Family History: Malignancy Parental Family History Reviewed: Yes Children Family History Reviewed: NA Sibling(s) Family History Reviewed.: NA Medication/Allergy Home Medications: Lorazepam [Ativan 1 mg Tablet] 1 mg PO Q8HP PRN 12/02/12 Atorvastatin Calcium [Lipitor 40 mg Tablet] 40 mg PO QHS 01/30/19 Budesonide/Formoterol Fumarate [Symbicort Hfa 160-4.5 Mcg Inhaler 6 gm] 1 puff IH Q12 01/30/19 Metformin HCl [Glucophage 500 mg Tablet] 500 mg PO DAILY 01/30/19 Naloxone HCl [Narcan] 4 mg NS ASDIR PRN 01/30/19 Oxycodone HCl 15 mg PO Q6HP PRN 01/30/19 Allergies/Adverse Reactions: No Known Allergies Allergy (Verified 01/29/19 16:24) Review of Systems Constitutional: ABSENT: chills, fever(s) Eyes: ABSENT: visual disturbances Nose, Mouth, and Throat: ABSENT: headache(s) Cardiovascular: ABSENT: chest pain Respiratory: PRESENT: cough Gastrointestinal: ABSENT: abdominal pain Genitourinary: ABSENT: dysuria Musculoskeletal: PRESENT: back pain Integumentary: ABSENT: diaphoresis Neurological: PRESENT: confusion Psychiatric: ABSENT: anxiety Physical Exam Vital Signs: Temp Pulse Resp BP Pulse Ox 99.2 F 18 105/85 96 12/01/19 13:03 12/01/19 16:01 12/01/19 16:00 12/01/19 16:01 Intake & Output 11/30/19 12/01/19 12/02/19 06:59 06:59 06:59 Weight 102.3 kg General appearance: PRESENT: no acute distress Neck exam: ABSENT: JVD Respiratory exam: PRESENT: clear to auscultation massiel, unlabored. ABSENT: tachypnea, wheezes Cardiovascular exam: PRESENT: RRR, +S1, +S2. ABSENT: tachycardia GI/Abdominal exam: PRESENT: soft. ABSENT: rebound, rigid, tenderness Neurological exam: PRESENT: alert, awake, oriented to person, oriented to place, oriented to time Psychiatric exam: ABSENT: agitated, anxious Focused psych exam: ABSENT: pressured speech Skin exam: PRESENT: other - Flushed Results Laboratory Results: 12/01/19 13:13 12/01/19 13:13 12/01/19 12/01/19 12/01/19 13:13 13:13 13:13 WBC 9.2 RBC 4.56 Hgb 15.2 Hct 45.8 MCV 101 H MCH 33.4 MCHC 33.2 RDW 15.8 H Plt Count 174 Seg Neutrophils % 50.5 Carbonic Acid HCO3/H2CO3 Ratio ABG pH ABG pCO2 ABG pO2 ABG HCO3 ABG O2 Saturation ABG Base Excess FiO2 Sodium 134.4 L Potassium 5.5 H Chloride 99 Carbon Dioxide 27 Anion Gap 8 BUN 20 Creatinine 1.72 H Est GFR ( Amer) 48 L Glucose 263 H Lactic Acid 3.8 H Calcium 9.2 Magnesium 1.5 L Total Bilirubin 1.1 AST 53 Alkaline Phosphatase 92 Total Protein 6.7 Albumin 4.1 TSH Urine Color Urine Appearance Urine pH Ur Specific [place] Urine Protein Urine Glucose (UA) Urine Ketones Urine Blood Urine RBC (Auto) 12/01/19 12/01/19 12/01/19 13:13 13:32 14:07 WBC RBC Hgb Hct MCV MCH MCHC RDW Plt Count Seg Neutrophils % Carbonic Acid 1.43 H HCO3/H2CO3 Ratio 17:1 ABG pH 7.35 ABG pCO2 47.4 H ABG pO2 55.1 L ABG HCO3 25.3 H ABG O2 Saturation 86.9 L ABG Base Excess -0.8 FiO2 3L Sodium Potassium Chloride Carbon Dioxide Anion Gap BUN Creatinine Est GFR ( Amer) Glucose Lactic Acid Calcium Magnesium Total Bilirubin AST Alkaline Phosphatase Total Protein Albumin TSH 2.41 Urine Color YELLOW Urine Appearance SLIGHTLY-CLOUDY Urine pH 5.0 Ur Specific [place] 1.021 Urine Protein 100 H Urine Glucose (UA) 50 H Urine Ketones TRACE H Urine Blood NEGATIVE Urine RBC (Auto) 2 12/01/19 16:23 WBC RBC Hgb Hct MCV MCH MCHC RDW Plt Count Seg Neutrophils % Carbonic Acid HCO3/H2CO3 Ratio ABG pH ABG pCO2 ABG pO2 ABG HCO3 ABG O2 Saturation ABG Base Excess FiO2 Sodium Potassium Chloride Carbon Dioxide Anion Gap BUN Creatinine Est GFR ( Amer) Glucose Lactic Acid 1.0 Calcium Magnesium Total Bilirubin AST Alkaline Phosphatase Total Protein Albumin TSH Urine Color Urine Appearance Urine pH Ur Specific [place] Urine Protein Urine Glucose (UA) Urine Ketones Urine Blood Urine RBC (Auto) 12/01/19 12/01/19 13:13 16:23 Troponin I 0.094 0.103 NT-Pro-B Natriuret Pep 9900 H Impressions: Chest X-Ray 12/01/19 13:15 IMPRESSION: CARDIAC ENLARGEMENT. VASCULAR CONGESTION. Head CT 12/01/19 13:26 IMPRESSION: NORMAL BRAIN CT WITHOUT CONTRAST. EVIDENCE OF ACUTE STROKE: NO. Assessment and Plan - Diagnosis (1) Acute metabolic encephalopathy Is this a current diagnosis for this admission?: Yes Plan: Characterized by confusion and obtundation at initial presentation. Likely secondary to overdose on narcotics. Patient takes morphine and oxycodone as well as Ativan at home with respiratory rate of 10 on presentation and good response to Narcan. Has been off Narcan drip for over an hour now and doing well. We will monitor in the IMCU on continuous pulse oximetry and cardiac monitoring. Head CT was unremarkable Avoid narcotics tonight (2) Opiate or related narcotic overdose Qualifiers: Encounter type: initial encounter Injury intent: accidental or unintentional Qualified Code(s): T40.601A - Poisoning by unspecified narcotics, accidental (unintentional), initial encounter Is this a current diagnosis for this admission?: Yes Plan: Avoid all narcotics tonight. Plan as above. (3) Acute respiratory failure with hypoxia Is this a current diagnosis for this admission?: Yes Plan: Secondary to opiate overdose. Chest x-ray not showing any clear pneumonia. Right hilar fullness noted. Still possible that patient could have aspirated du ring current episode. Will monitor. Aspiration precautions. Mental status has improved now. Patient now tolerating nasal cannula 3 L but was significantly hypoxic at 36% on room air upon initial presentation to the ER. (4) Chronic pain Qualifiers: Chronic pain type: other chronic pain Qualified Code(s): G89.29 - Other chronic pain Is this a current diagnosis for this admission?: Yes Plan: Hold off on narcotics today (5) Diabetes mellitus type 2 in obese Is this a current diagnosis for this admission?: Yes Plan: Sliding scale insulin. Diabetic diet. Accu-Cheks. Holding metformin. - Time Time Spent with patient: 35 or more minutes
[2019-12-01] MEDS: MAGNESIUM SULFATE/D5W 1 GM/100 ML RTUPB IV SCH ×2 (19:34→20:53)
[2019-12-01] MEDS: INSULIN LISPRO 100 UNIT/ML 3 ML VIAL SUBCUT SCH (21:51)
--- NOTE | 2019-12-01 22:30 | EKG REPORT ---
SEVERITY:- ABNORMAL ECG - SINUS RHYTHM RIGHT BUNDLE BRANCH BLOCK : Confirmed by: Jasmine Braun MD 01-Dec-2019 22:29:52
[2019-12-01] MEDS ORDERED: FLUTICASONE/VILANTEROL 200-25 MCG/DOSE IH ONE (22:59)
[2019-12-02] MEDS ORDERED: FLUTICASONE/VILANTEROL 200-25 MCG/DOSE IH ONE (00:07)
[2019-12-02] MEDS: FLUTICASONE/VILANTEROL 200-25 MCG/DOSE IH SCH (00:43)
[2019-12-02 04:55] LABS: ABSOLUTE EOSINOPHILS # (AUTO) 0.1 10^3/uL (0.0-0.6); ABSOLUTE LYMPHOCYTES (AUTO) 1.8 10^3/uL (0.5-4.7); ABSOLUTE MONOCYTES (AUTO) 0.4 10^3/uL (0.1-1.4); ABSOLUTE NEUT (AUTO) 2.6 10^3/uL (1.7-8.2); BASOPHILS % (AUTO) 0.5 % (0-2); EOSINOPHILS % (AUTO) 1.1 % (0-6); HEMATOCRIT 41.2 % (37.9-51.0); HEMOGLOBIN 13.9 g/dL (13.5-17.0); MEAN CORPUSCULAR HGB CONC 33.7 g/dL (32.0-36.0); MEAN CORPUSCULAR VOLUME 98 fl (80-97); MONOCYTES % (AUTO) 7.5 % (3-13); RED CELL DISTRIBUTION WIDTH 15.6 % (11.5-14.0); SEGMENTED NEUTROPHILS % (AUTO) 52.9 % (42-78); TOTAL CELLS COUNTED % (AUTO) 100 %; WHITE BLOOD COUNT 4.8 10^3/uL (4.0-10.5)
[2019-12-02 05:11] LABS: BLOOD UREA NITROGEN 22 mg/dL (7-20); CALCIUM 8.5 mg/dL (8.4-10.2); GLUCOSE 113 mg/dL (75-110); POTASSIUM 4.6 mmol/L (3.6-5.0)
[2019-12-02 05:16] LABS: CARBON DIOXIDE 30 mmol/L (22-30); CHLORIDE 103 mmol/L (98-107)
[2019-12-02 05:18] LABS: PLATELET COUNT 89 10^3/uL (150-450)
[2019-12-02 05:27] LABS: ANION GAP 3 (5-19)
[2019-12-02] MEDS ORDERED: FONDAPARINUX SODIUM INJ 2.5 MG/0.5 ML DISP.SYRIN SUBCUT SCH (08:00)
--- NOTE | 2019-12-02 10:25 | RADIOLOGY REPORT (SQ) ---
EXAM DESCRIPTION: CTA CHEST IMAGES COMPLETED DATE/TIME: 12/02/2019 10:03 am REASON FOR STUDY: Shortness of breath hypoxia COMPARISON: None. TECHNIQUE: CT scan of the chest performed using helical scanning technique with dynamic intravenous contrast injection. Images reviewed with lung, soft tissue and bone windows. Reconstructed coronal and sagittal MPR images reviewed. Additional 3 dimensional post-processing performed to develop Maximal Intensity Projection images (AL P). All images stored on PACS. All CT scanners at this facility use dose modulation, iterative reconstruction, and/or weight based d osing when appropriate to reduce radiation dose to as low as reasonably achievable (ALARA). [facility]: Dose Right [facility]: CareDose [facility]: Dose Right [facility]: Teradose 4D [facility]: [employer] CONTRAST TYPE AND DOSE: Contrast/concentration: Isovue 350.00 mg/ml; Total Contrast Delivered: 59.0 ml; Total Saline Delivered: 80.0 ml Contrast bolus optimized for the pulmonary arteries. Not diagnostic for the aorta. RENAL FUNCTION: Creatinine 1.07 milligrams/deciliter. RADIATION DOSE: CT Rad equipment meets quality standard of care and radiation dose reduction techniq ues were employed. CTDIvol: 11.3 - 15.4 mGy. DLP: 591 mGy-cm. LIMITATIONS: None. FINDINGS: LUNGS AND PLEURA: There is a nonocclusive debris within the trachea. The main bronchi are patent. There is no bronchiectasis or mucus plugging. The opacities in the superior segment of the left lower lobe (image 28 of series 4) are nonspecific and clinical correlation to exclude an infect ion is recommended. The subpleural opacities in the lower lobes are consistent with atelectasis. Th ere is no pleural effusion, pneumothorax or greater than 6 mm pulmonary nodule. AORTA AND GREAT VESSELS: There is a variant 2 vessel arch with a common origin of the brachiocephalic and left common carotid arteries ; there is no thoracic aortic dissection or aneurysm. HEART: Cardiomegaly and [id number] atherosclerotic calcification of the coronary arteries. The re is no pericardial effusion. PULMONARY ARTERIES: The pulmonary artery is dilated and it measures 4.4 cm in transverse diameter. T here is no pulmonary embolus. HILAR AND MEDIASTINAL STRUCTURES: No adenopathy or mass. HARDWARE: None in the chest. UPPER ABDOMEN: Cholelithiasis. THYROID AND OTHER SOFT TISSUES: No mass or adenopathy. BONES: No fracture or osseous lesion. 3D MIPS: Confirm above findings. OTHER: No other finding. IMPRESSION: 1. No pulmonary embolus. 2. Dilatation of the pulmonary artery - clinical correlation for pulmonary hypertension is recommend ed. 3. Opacities in the superior segment of the left lower lobe (image 28 of series 4) could represent a n infection or atelectasis - clinical correlation is recommended. 4. Cholelithiasis. COMMENT: Quality ID # [id number]: Final reports with documentation of one or more dose reduction techniques (e.g., Automated exposure control, adjustment of the mA and/or kV according to patient size, use of iterative reconstruction technique) TECHNICAL DOCUMENTATION: JOB ID: [id number] 2010 [email or web address]- All Rights Reserved Reading location - IP/workstation name: [email or web address]
[2019-12-02] MEDS ORDERED: ONDANSETRON HCL INJ/PF 4 MG/2 ML SDV IV PRN (13:00)
[2019-12-02] MEDS ORDERED: OXYCODONE HCL IR 5 MG TABLET PO PRN (14:01)
--- NOTE | 2019-12-02 14:20 | PDOC PROGRESS REPORT ---
Subjective Progress Note for:: 12/02/19 Subjective:: Patient still having some cough. Denies any sore throat fever or chills. Denies history of requiring home oxygen. Does have history of COPD. Feels well otherwise. Reason For Visit: SYNCOPE,OPIOID OVERDOSE Physical Exam Vital Signs: Temp Pulse Resp BP Pulse Ox 98.3 F 92 15 105/69 95 12/02/19 11:23 12/02/19 11:23 12/02/19 11:23 12/02/19 11:23 12/02/19 11:23 Pulse Oximeter Continuous Start: 12/01/19 18:35 Freq: RTQ4 Status: Active Protocol: Document 12/02/19 08:43 [facility] (Rec: 12/02/19 08:43 [facility] [id number]) Pulse Oximetry Assessment Oxygen Saturation (92-100) 93 Oxygen Flow Rate (L/min) 5 Oxygen Delivery Method Nasal Cannula Fraction of Inspired Oxygen (FIO2) 40 Equipment Usage Equipment in Use Continuous SpO2 Machine # [id number] Intake & Output 12/01/19 12/02/19 12/03/19 06:59 06:59 06:59 Intake Total 1760 355 Output Total 725 275 Balance 1035 80 Weight 96.1 kg General appearance: PRESENT: no acute distress, cooperative, well-nourished. ABSENT: thin Neck exam: ABSENT: JVD Respiratory exam: PRESENT: clear to auscultation massiel, unlabored. ABSENT: tachypnea, wheezes Cardiovascular exam: PRESENT: RRR, +S1, +S2. ABSENT: tachycardia GI/Abdominal exam: PRESENT: normal bowel sounds, soft. ABSENT: rebound, rigid, tenderness Neurological exam: PRESENT: alert, awake, oriented to person, oriented to place, oriented to time Results Laboratory Results: 12/02/19 04:36 12/02/19 04:36 12/01/19 12/01/19 12/01/19 13:13 13:32 14:07 WBC RBC Hgb Hct MCV MCH MCHC RDW Plt Count Seg Neutrophils % Carbonic Acid 1.43 H HCO3/H2CO3 Ratio 17:1 ABG pH 7.35 ABG pCO2 47.4 H ABG pO2 55.1 L ABG HCO3 25.3 H ABG O2 Saturation 86.9 L ABG Base Excess -0.8 FiO2 3L Sodium Potassium Chloride Carbon Dioxide Anion Gap BUN Creatinine Est GFR ( Amer) Glucose Lactic Acid Calcium Magnesium TSH 2.41 Urine Color YELLOW Urine Appearance SLIGHTLY-CLOUDY Urine pH 5.0 Ur Specific [place] 1.021 Urine Protein 100 H Urine Glucose (UA) 50 H Urine Ketones TRACE H Urine Blood NEGATIVE Urine RBC (Auto) 2 12/01/19 12/02/19 12/02/19 16:23 04:36 04:36 WBC 4.8 RBC 4.20 L Hgb 13.9 Hct 41.2 MCV 98 H MCH 33.0 MCHC 33.7 RDW 15.6 H Plt Count 89 L Seg Neutrophils % 52.9 Carbonic Acid HCO3/H2CO3 Ratio ABG pH ABG pCO2 ABG pO2 ABG HCO3 ABG O2 Saturation ABG Base Excess FiO2 Sodium 136.0 L Potassium 4.6 Chloride 103 Carbon Dioxide 30 Anion Gap 3 L BUN 22 H Creatinine 1.07 Est GFR ( Amer) > 60 Glucose 113 H Lactic Acid 1.0 Calcium 8.5 Magnesium 1.9 TSH Urine Color Urine Appearance Urine pH Ur Specific [place] Urine Protein Urine Glucose (UA) Urine Ketones Urine Blood Urine RBC (Auto) 12/01/19 12/01/19 12/01/19 13:13 16:23 19:30 Troponin I 0.094 0.103 0.124 NT-Pro-B Natriuret Pep 9900 H 12/01/19 12/02/19 22:58 04:36 Troponin I 0.096 0.071 NT-Pro-B Natriuret Pep Impressions: Chest X-Ray 12/01/19 13:15 IMPRESSION: CARDIAC ENLARGEMENT. VASCULAR CONGESTION. Head CT 12/01/19 13:26 IMPRESSION: NORMAL BRAIN CT WITHOUT CONTRAST. EVIDENCE OF ACUTE STROKE: NO. Chest/Abdomen CTA 12/02/19 00:00 IMPRESSION: 1. No pulmonary embolus. 2. Dilatation of the pulmonary artery - clinical correlation for pulmonary hypertension is recommended. 3. Opacities in the superior segment of the left lower lobe (image 28 of series 4) could represent an infection or atelectasis - clinical correlation is recommended. 4. Cholelithiasis. Assessment and Plan - Diagnosis (1) Acute respiratory failure with hypoxia Is this a current diagnosis for this admission?: Yes Plan: Secondary to opiate overdose. Chest x-ray not showing any clear pneumonia. Right hilar fullness noted. Still possible that patient could have aspirated during current episode. Will monitor. Aspiration precautions. Mental status has improved now. Patient now tolerating nasal cannula 3 L but was significantly hypoxic at 36% on room air upon initial presentation to the ER . 12/02/2019 Pulse oximetry on room air is 86% and 89% on 2 L nasal cannula. Patient denies ever requiring home oxygen. Does have underlying COPD. Chest CTA shows only mild atelectasis in lung bases and left lower lung but no PE, no pneumonia, no pulmonary edema or effusion and no finding to explain patient's extent of hypoxia. CTA does note evidence of pulmonary hypertension which will be evaluated via TTE. Incentive spirometer. Hypoxia is likely having a chronic component secondary to underlying COPD. (2) Acute metabolic encephalopathy Is this a current diagnosis for this admission?: Yes Plan: Characterized by confusion and obtundation at initial presentation. Likely toxic metabolic encephalopathy secondary to overdose on narcotics. Patient takes morphine and oxycodone as well as Ativan at home with respiratory rate of 10 on presentation and good response to Narcan. Has been off Narcan drip for over an hour now and doing well. We will monitor in the IMCU on continuous pulse oximetry and cardiac monitoring. Head CT was unremarkable Avoid narcotics tonight 12/02/2019 Patient's encephalopathy seems to have resolved. Patient is back to baseline mental status. (3) Opiate or related narcotic overdose Qualifiers: Encounter type: initial encounter Injury intent: accidental or unintentional Qualified Code(s): T40.601A - Poisoning by unspecified narcotics, accidental (unintentional), initial encounter Is this a current diagnosis for this admission?: Yes Plan: Will discontinue morphine. Oxycodone as needed. Reduce Ativan dose and give only as needed. Will monitor closely. (4) Chronic pain Qualifiers: Chronic pain type: other chronic pain Qualified Code(s): G89.29 - Other chr onic pain Is this a current diagnosis for this admission?: Yes Plan: Plan as above (5) Diabetes mellitus type 2 in obese Is this a current diagnosis for this admission?: Yes Plan: Sliding scale insulin. Diabetic diet. Accu-Cheks. Holding metformin. (6) COPD (chronic obstructive pulmonary disease) Qualifiers: COPD type: chronic bronchitis Is this a current diagnosis for this admission?: Yes Plan: Breo Ellipta, albuterol as needed (7) LUZMARIA (acute kidney injury) Is this a current diagnosis for this admission?: Yes Plan: Creatinine 1.72 but resolved after fluid administration - Time Time Spent with patient: 15-24 minutes
[2019-12-02] MEDS: INSULIN LISPRO 100 UNIT/ML 3 ML VIAL SUBCUT SCH ×4 (14:41→21:55)
[2019-12-02] MEDS: LORAZEPAM 1 MG TABLET PO PRN ×2 (14:47→21:15)
[2019-12-02] MEDS ORDERED: NICOTINE 21 MG/24 HR PATCH.TD24 TD PRN (15:02)
[2019-12-02] MEDS ORDERED: ALBUTEROL SULFATE HFA (90 MCG/PUFF) 8 GM MDI IH SCH (18:00)
[2019-12-02] MEDS: ALBUTEROL SULFATE HFA (90 MCG/PUFF) 200 PUFF/8.5 GM MDI IH SCH (20:10)
[2019-12-02] MEDS: ATORVASTATIN CALCIUM 40 MG TABLET PO SCH (21:15)
[2019-12-03 05:13] LABS: ABSOLUTE EOSINOPHILS # (AUTO) 0.1 10^3/uL (0.0-0.6); ABSOLUTE LYMPHOCYTES (AUTO) 1.4 10^3/uL (0.5-4.7); ABSOLUTE MONOCYTES (AUTO) 0.3 10^3/uL (0.1-1.4); BASOPHILS % (AUTO) 0.3 % (0-2); EOSINOPHILS % (AUTO) 1.3 % (0-6); HEMATOCRIT 41.5 % (37.9-51.0); LYMPHOCYTES % (AUTO) 28.9 % (13-45); MEAN CORPUSCULAR HEMOGLOBIN 33.1 pg (27.0-33.4); MEAN CORPUSCULAR HGB CONC 33.8 g/dL (32.0-36.0); MEAN CORPUSCULAR VOLUME 98 fl (80-97); MONOCYTES % (AUTO) 6.8 % (3-13); PLATELET COUNT 101 10^3/uL (150-450); RED BLOOD COUNT 4.23 10^6/uL (4.35-5.55); SEGMENTED NEUTROPHILS % (AUTO) 62.7 % (42-78); TOTAL CELLS COUNTED % (AUTO) 100 %; WHITE BLOOD COUNT 4.8 10^3/uL (4.0-10.5)
[2019-12-03 05:30] LABS: BLOOD UREA NITROGEN 19 mg/dL (7-20); CALCIUM 8.9 mg/dL (8.4-10.2); GLUCOSE 117 mg/dL (75-110); POTASSIUM 4.6 mmol/L (3.6-5.0)
[2019-12-03] MEDS: ALBUTEROL SULFATE HFA (90 MCG/PUFF) 200 PUFF/8.5 GM MDI IH SCH ×2 (05:31→17:27)
[2019-12-03 05:37] LABS: ANION GAP 5 (5-19); CARBON DIOXIDE 33 mmol/L (22-30); CHLORIDE 98 mmol/L (98-107)
[2019-12-03] MEDS: LORAZEPAM 1 MG TABLET PO PRN (08:31)
[2019-12-03] MEDS: INSULIN LISPRO 100 UNIT/ML 3 ML VIAL SUBCUT SCH ×4 (09:37→22:50)
[2019-12-03] MEDS: ENOXAPARIN SODIUM INJ 40 MG/0.4 ML DISP.SYRIN SUBCUT SCH (09:38)
[2019-12-03] MEDS: FLUTICASONE/VILANTEROL 200-25 MCG/DOSE IH SCH (09:39)
--- NOTE | 2019-12-03 17:43 | XCELERA REPORT ---
[address] [address] Transthoracic Echocardiogram Report Name: ISRAEL ZAMORA Age: 64 yrs Gender: Male : 1955 Patient Status: Inpatient Patient Location: [address] [place], [place] [id number] Study Date: 12/03/2019 02:52 PM Height: 72 in Weight: 211 lb BSA: 2.2 m2 Procedure: A complete two-dimensional transthoracic echocardiogram was performed (2D, M-mode, spectral and color flow Doppler). The study was technically adequate with some images being suboptimal in quality. Reason For Study: bubble study. Hypoxia. not much on CTA. ?pulm htn. Ordering Physician: CEZAR MARTINS Performed By: Brittney Rodriguez Interpretation Summary The left ventricular ejection fraction is normal. There is borderline concentric left ventricular hypertrophy. Doppler measurements suggest impaired left ventricular relaxation, which is associated with grade I/IV or mild diastolic dysfunction The left ventricle is grossly normal size. The right ventricle is moderately dilated. The right ventricle appears to be hypertrophied The right ventricular systolic function is normal. The right atrium is moderately dilated. The left atrial size is normal. There is a trace amount of mitral regurgitation There is no mitral valve stenosis. There is a trace amount of aortic regurgitation There is no aortic valve stenosis There is a trace to mild amount of tricuspid regurgitation There is mild to moderate pulmonary hypertension by echo Best estimated right ventricular systolic pressure is elevated at 40-50mmHg. The aortic root is not well visualized but is probably normal size. The inferior vena cava appeared dilated and decreased < 50% with respiration (RAP 15-20 mmHg) There is no pericardial effusion. MMode/2D Measurements & Calculations RVDd: 3.7 cm LVIDd: 4.9 cm FS: 32.9 % Ao root diam: 2.6 cm IVSd: 0.97 cm LVIDs: 3.3 cm EDV(Teich): 115.1 ml Ao root area: 5.1 cm2 LVPWd: 0.97 cm ESV(Teich): 44.7 ml LA dimension: 4.7 cm EF(Teich): 61.2 % Doppler Measurements & Calculations MV E max andriy: MV P1/2t max andriy: Ao V2 max: LV V1 max P.3 cm/sec 79.1 cm/sec 153.6 cm/sec 6.4 mmHg MV A max andriy: MV P1/2t: 68.7 msec Ao max P.4 mmHg LV V1 max: 90.2 cm/sec MVA(P1/2t): 3.2 cm2 126.9 cm/sec MV E/A: 0.87 MV dec slope: 336.8 cm/sec2 MV dec time: 0.24 sec PA V2 max: TR max andriy: MV P1/2t-pr_phl: 93.3 cm/sec 294.3 cm/sec 68.7 msec PA max PG: TR max P.6 mmHg 3.5 mmHg Left Ventricle The left ventricle is grossly normal size. There is borderline concentric left ventricular hypertrophy. The left ventricular ejection fraction is normal. Doppler measurements suggest impaired left ventricular relaxation, which is associated with grade I/IV or mild diastolic dysfunction. Wall motion cannot be accurately commented on, but no definite regional wall motion abnormalities noted. Right Ventricle The right ventricle is moderately dilated. The right ventricle appears to be hypertrophied. The right ventricular systolic function is normal. Atria The right atrium is moderately dilated. The left atrial size is normal. Interarterial septum not well visualized and not well dopplered. Cannot comment on ASD/PFO presence. Mitral Valve The mitral valve leaflets are sclerotic, but show no functional abnormalities. There is no mitral valve stenosis. There is a trace amount of mitral regurgitation. Aortic Valve The aortic valve opens well. There is no aortic valve stenosis. There is a trace amount of aortic regurgitation. Tricuspid Valve The tricuspid valve is not well visualized, but is grossly normal. There is no tricuspid stenosis. There is a trace to mild amount of tricuspid regurgitation. There is mild to moderate pulmonary hypertension by echo. Best estimated right ventricular systolic pressure is elevated at 40-50mmHg. Pulmonic Valve The pulmonic valve is not well visualized. Great Vessels The aortic root is not well visualized but is probably normal size. The inferior vena cava appeared dilated and decreased < 50% with respiration (RAP 15-20 mmHg). Effusions There is no pericardial effusion. : CEZAR MARTISN Shyamal
--- NOTE | 2019-12-03 18:30 | PDOC DISCHARGE SUMMARY ---
Impression - Admit/DC Date/PCP Admission Date/Primary Care Provider: 12/01/19 18:22 ANNABELLE PAYTON MD Discharge Date: 12/03/19 - Discharge Diagnosis (1) Acute respiratory failure with hypoxia Is this a current diagnosis for this admission?: Yes (2) Moderate pulmonary arterial systolic hypertension Is this a current diagnosis for this admission?: Yes (3) Right heart failure Is this a current diagnosis for this admission?: Yes (4) Acute metabolic encephalopathy Is this a current diagnosis for this admission?: Yes (5) Opiate or related narcotic overdose Is this a current diagnosis for this admission?: Yes (6) Chronic pain Is this a current diagnosis for this admission?: Yes (7) Diabetes mellitus type 2 in obese Is this a current diagnosis for this admission?: Yes (8) COPD (chronic obstructive pulmonary disease) Is this a current diagnosis for this admission?: Yes (9) LUZMARIA (acute kidney injury) Is this a current diagnosis for this admission?: Yes - Additional Information Resuscitation Status: Full Code Discharge Diet: As Tolerated Discharge Activity: Activity As Tolerated Referrals: VAN RUSSO MD [ACTIVE STAFF] - ANNABELLE PAYTON MD [Primary Care Provider] - Home Medications: Lorazepam [Ativan 1 mg Tablet] 1 mg PO Q8 12/02/12 Atorvastatin Calcium [Lipitor 40 mg Tablet] 40 mg PO QHS 01/30/19 Budesonide/Formoterol Fumarate [Symbicort HFA 160-4.5 mcg Inhaler 6 gm] 1 puff IH Q12 01/30/19 Metformin HCl [Glucophage 500 mg Tablet] 500 mg PO DAILY 01/30/19 Oxycodone HCl 15 mg PO Q6HP PRN 01/30/19 Albuterol Sulfate [Ventolin Hfa 8 gm Mdi] 2 puff IH BID 12/02/19 Dextroamphetamine/Amphetamine [Adderall Xr 30 mg Capsule] 30 mg PO DAILY 12/02/19 History of Present Illiness History of Present Illness: ISRAEL ZAMORA is a 64 year old male with a history of diabetes mellitus type 2, chronic pain on multiple narcotics, COPD, who presented to the hospital via EMS. Patient apparently has felt very dizzy today and lost consciousness with EMS present. Patient notably taking he is opioid medications today. Takes morphine at home. He was given Narcan in the field. On arrival in the ER patient was noted to be hypoxic with pulse ox of 36% on room air. Patient's respiratory rate was noted to be 10. Suspected to be in opiate overdose and giving another dose of Narcan. Patient has some improvement of mental status with administration of Narcan but subsequently became altered again. As such patient was placed on a Narcan drip which was discontinued about 30 minutes prior to encounter. Patient's mental status is improved and he is now responsive and able to answer questions. Patient does state he has been having some cough for the past 3 weeks and was told by his primary care provider that he had a pneumonia and given a Z-Dain and prednisone about 2 weeks ago which he never took until yesterday. However no x-ray was ever done to confirm whether he truly did have a pneumonia at that time. He denies any fevers at home. Denies any recent exposure. States it is that he stays at home with his mom who is in her 90s and pretty much takes care of her and only leaves the house to go to the grocery store. Chest x-ray in the ER does not reveal any pneumonia. Temperature minimally elevated at 99F however done shortly after patient was on the Narcan drip. Hospital Course Hospital Course: Patient was admitted for evaluation of encephalopathy. Patient was noted to be hypoxic at 36% upon presentation to the ER by EMS. Patient was placed on Narcan with suspicion of narcotic overdose as etiology of patient's encephalopathy. He was placed on Narcan drip with improvement of mental status. Narcan drip was later discontinued. Patient was admitted. His narcotic doses were de- escalated. Patient continues to require a lot of oxygen about 3 L nasal cannula despite normalization of his mental status. It is likely that patient either had toxic metabolic encephalopathy or/and hypoxic encephalopathy which led to his presentation. Patient was subsequently noted on CTA to have no evidence of pulmonary embolism and no pneumonia but did note that patient did have evidence of pulmonary hypertension and some atelectasis. Incentive spirometer was administered without improvement of patient's hypoxia. Patient was subsequently evaluated with echocardiogram which revealed moderate pulmonary hypertension with normal LV systolic function and essentially an unremarkable left heart but noted right heart hypertrophy and right ventricular dysfunction. Given this constellation of findings, it is believed that patient has some onset of right sided heart failure/cor pulmonale with accompanying pulmonary hypertension from what is likely to be chronic hypoxia from patient's COPD. As patient has not been on oxygen, the best way to tackle this issue would be to place patient on oxygen and as such she has been qualified for home oxygen which has been set up. Patient also needs optimization of his COPD and has been referred to Dr. Russo for follow-up. Patient currently feels well and is maintaining good sats on 3 L nasal cannula which she will be discharged home with. Notably patient did have an LUMZARIA during the stay which resolved with fluid administration. Physical Exam Vital Signs: Temp Pulse Resp BP Pulse Ox 98.2 F 93 16 106/75 96 12/03/19 15:55 12/03/19 15:55 12/03/19 15:55 12/03/19 15:55 12/03/19 16:00 Pulse Oximeter Continuous Start: 12/01/19 18:35 Freq: RTQ4 Status: Active Protocol: Document 12/03/19 16:00 [facility] (Rec: 12/03/19 16:04 [facility] [id number]) Pulse Oximetry Assessment Oxygen Saturation (92-100) 96 Oxygen Flow Rate (L/min) 3 Oxygen Delivery Method Nasal Cannula Fraction of Inspired Oxygen (FIO2) 32 Equipment Usage Equipment in Use Continuous SpO2 Machine # [id number] Intake & Output 12/02/19 12/03/19 12/04/19 06:59 06:59 06:59 Intake Total 1760 2675 480 Output Total 725 275 Balance 1035 2400 480 Weight 96.1 kg 83.8 kg General appearance: PRESENT: no acute distress, cooperative Respiratory exam: PRESENT: clear to auscultation massiel. ABSENT: crackles Cardiovascular exam: PRESENT: +S1, +S2. ABSENT: systolic murmur, tachycardia GI/Abdominal exam: PRESENT: soft. ABSENT: tenderness Neurological exam: PRESENT: alert, awake, oriented to person, oriented to place, oriented to time Results Laboratory Results: WBC 4.8 10^3/uL (4.0-10.5) 12/03/19 04:24 RBC 4.23 10^6/uL (4.35-5.55) L 12/03/19 04:24 Hgb 14.0 g/dL (13.5-17.0) 12/03/19 04:24 Hct 41.5 % (37.9-51.0) 12/03/19 04:24 MCV 98 fl (80-97) H 12/03/19 04:24 MCH 33.1 pg (27.0-33.4) 12/03/19 04:24 MCHC 33.8 g/dL (32.0-36.0) 12/03/19 04:24 RDW 16.0 % (11.5-14.0) H 12/03/19 04:24 Plt Count 101 10^3/uL (150-450) L 12/03/19 04:24 Lymph % (Auto) 28.9 % (13-45) 12/03/19 04:24 [place] % (Auto) 6.8 % (3-13) 12/03/19 04:24 Eos % (Auto) 1.3 % (0-6) 12/03/19 04:24 Baso % (Auto) 0.3 % (0-2) 12/03/19 04:24 Absolute Neuts (auto) 3.0 10^3/uL (1.7-8.2) 12/03/19 04:24 Absolute Lymphs (auto) 1.4 10^3/uL (0.5-4.7) 12/03/19 04:24 Absolute Monos (auto) 0.3 10^3/uL (0.1-1.4) 12/03/19 04:24 Absolute Eos (auto) 0.1 10^3/uL (0.0-0.6) 12/03/19 04:24 Absolute Basos (auto) 0.0 10^3/uL (0.0-0.2) 12/03/19 04:24 Seg Neutrophils % 62.7 % (42-78) 12/03/19 04:24 Carbonic Acid 1.43 mmol/L (1.05-1.35) H 12/01/19 14:07 HCO3/H2CO3 Ratio 17:1 12/01/19 14:07 ABG pH 7.35 (7.35-7.45) 12/01/19 14:07 ABG pCO2 47.4 mmHg (35-45) H 12/01/19 14:07 ABG pO2 55.1 mmHg (80-100) L 12/01/19 14:07 ABG HCO3 25.3 mmol/L (20-24) H 12/01/19 14:07 ABG Total CO2 26.8 mmol/L (23-27) 12/01/19 14:07 ABG O2 Saturation 86.9 % (94-98) L 12/01/19 14:07 ABG Base Excess -0.8 mmol/L 12/01/19 14:07 FiO2 3L 12/01/19 14:07 Sodium 135.9 mmol/L (137-145) L 12/03/19 04:24 Potassium 4.6 mmol/L (3.6-5.0) 12/03/19 04:24 Chloride 98 mmol/L (98-107) 12/03/19 04:24 Carbon Dioxide 33 mmol/L (22-30) H 12/03/19 04:24 Anion Gap 5 (5-19) 12/03/19 04:24 BUN 19 mg/dL (7-20) 12/03/19 04:24 Creatinine 1.05 mg/dL (0.52-1.25) 12/03/19 04:24 Est GFR ( Amer) > 60 (>60) 12/03/19 04:24 Est GFR (MDRD) Non-Af > 60 (>60) 12/03/19 04:24 Glucose 117 mg/dL (75-110) H 12/03/19 04:24 POC Glucose 125 mg/dL (70-110) H 12/03/19 15:56 Lactic Acid 1.0 mmol/L (0.7-2.1) 12/01/19 16:23 Calcium 8.9 mg/dL (8.4-10.2) 12/03/19 04:24 Magnesium 1.9 mg/dL (1.6-2.3) 12/02/19 04:36 Total Bilirubin 1.1 mg/dL (0.2-1.3) 12/01/19 13:13 Direct Bilirubin 0.1 mg/dL (0.0-0.4) 12/01/19 13:13 Neonat Total Bilirubin Not Reportable 12/01/19 13:13 Neonat Direct Bilirubin Not Reportable 12/01/19 13:13 Neonat Indirect Bili Not Reportable 12/01/19 13:13 AST 53 U/L (17-59) 12/01/19 13:13 ALT 46 U/L (<50) 12/01/19 13:13 Alkaline Phosphatase 92 U/L (38-126) 12/01/19 13:13 Troponin I 0.071 ng/mL 12/02/19 04:36 NT-Pro-B Natriuret Pep 9900 pg/mL (<125) H 12/01/19 13:13 Total Protein 6.7 g/dL (6.3-8.2) 12/01/19 13:13 Albumin 4.1 g/dL (3.5-5.0) 12/01/19 13:13 TSH 2.41 uIU/mL (0.47-4.68) 12/01/19 13:13 Urine Color YELLOW 12/01/19 13:32 Urine Appearance SLIGHTLY-CLOUDY 12/01/19 13:32 Urine pH 5.0 (5.0-9.0) 12/01/19 13:32 Ur Specific [place] 1.021 12/01/19 13:32 Urine Protein 100 mg/dL (NEGATIVE) H 12/01/19 13:32 Urine Glucose (UA) 50 mg/dL (NEGATIVE) H 12/01/19 13:32 Urine Ketones TRACE mg/dL (NEGATIVE) H 12/01/19 13:32 Urine Blood NEGATIVE (NEGATIVE) 12/01/19 13:32 Urine Nitrite (Reflex) NEGATIVE (NEGATIVE) 12/01/19 13:32 Urine Bilirubin NEGATIVE (NEGATIVE) 12/01/19 13:32 Urine Urobilinogen 2.0 mg/dL (<2.0) H 12/01/19 13:32 Leukocyte Esterase Rfl NEGATIVE (NEGATIVE) 12/01/19 13:32 Urine RBC (Auto) 2 /HPF 12/01/19 13:32 U Hyaline Cast (Auto) 44 /LPF 12/01/19 13:32 Urine WBC (Reflex) 2 /HPF 12/01/19 13:32 Squamous Epi Cells Auto 2 /HPF 12/01/19 13:32 Urine Mucus (Auto) OCC /LPF 12/01/19 13:32 Urine Ascorbic Acid NEGATIVE (NEGATIVE) 12/01/19 13:32 Urine Opiates Screen UNCONFIRMED POSITIVE 12/01/19 13:32 Urine Methadone Screen NEGATIVE 12/01/19 13:32 Acetaminophen < 10 ug/mL (10-30) L 12/01/19 13:13 Ur Barbiturates Screen NEGATIVE 12/01/19 13:32 Ur Phencyclidine Scrn NEGATIVE 12/01/19 13:32 Ur Amphetamines Screen NEGATIVE 12/01/19 13:32 U Benzodiazepines Scrn NEGATIVE 12/01/19 13:32 Urine Cocaine Screen NEGATIVE 12/01/19 13:32 U Marijuana (THC) Screen NEGATIVE 12/01/19 13:32 Serum Alcohol < 10 mg/dL (NONE DETECTED) 12/01/19 13:13 12/01/19 12/01/19 12/01/19 13:13 16:23 19:30 Troponin I 0.094 0.103 0.124 NT-Pro-B Natriuret Pep 9900 H 12/01/19 12/02/19 22:58 04:36 Troponin I 0.096 0.071 NT-Pro-B Natriuret Pep Impressions: Chest X-Ray 12/01/19 13:15 IMPRESSION: CARDIAC ENLARGEMENT. VASCULAR CONGESTION. Head CT 12/01/19 13:26 IMPRESSION: NORMAL BRAIN CT WITHOUT CONTRAST. EVIDENCE OF ACUTE STROKE: NO. Chest/Abdomen CTA 12/02/19 00:00 IMPRESSION: 1. No pulmonary embolus. 2. Dilatation of the pulmonary artery - clinical correlation for pulmonary hypertension is recommended. 3. Opacities in the superior segment of the left lower lobe (image 28 of series 4) could represent an infection or atelectasis - clinical correlation is recommended. 4. Cholelithiasis. Plan Time Spent: Greater than 30 Minutes Stroke Is this a Stroke Patient?: No Acute Heart Failure - Is this a Heart Failure Patient?: Yes Documentation of LVEF assessment?: Yes LVEF < 40%?: No- if no continue to question #3 3. Anticoagulant therapy for permanect/persistent/paraoxysmal Afib or Aflutter: N/A
[2019-12-03] MEDS: ATORVASTATIN CALCIUM 40 MG TABLET PO SCH (22:49)
[2019-12-04] MEDS: LORAZEPAM 1 MG TABLET PO PRN (00:48)
[2019-12-04] MEDS: ALBUTEROL SULFATE HFA (90 MCG/PUFF) 200 PUFF/8.5 GM MDI IH SCH (06:28)
[2019-12-04] MEDS: INSULIN LISPRO 100 UNIT/ML 3 ML VIAL SUBCUT SCH (08:03)
[2019-12-04] MEDS: ENOXAPARIN SODIUM INJ 40 MG/0.4 ML DISP.SYRIN SUBCUT SCH (09:07)
[2019-12-04] MEDS: FLUTICASONE/VILANTEROL 200-25 MCG/DOSE IH SCH (09:08)
[2019-12-04 09:16] VITALS: BP 96/60
--- NOTE | 2019-12-04 12:30 | PDOC PROGRESS REPORT ---
Subjective Progress Note for:: 12/04/19 Subjective:: Patient seen and examined today. Discharge yesterday by hospitalist but this was delayed in order to arrange home oxygen. I discussed this with patient today he states his home oxygen will be delivered to his home and they will instruct him on its use and care. He has no new complaints today and feels overall well back to baseline. Reason For Visit: SYNCOPE,OPIOID OVERDOSE Physical Exam Vital Signs: Temp Pulse Resp BP Pulse Ox 97.8 F 94 20 96/60 L 97 12/04/19 09:13 12/04/19 09:13 12/04/19 09:13 12/04/19 09:13 12/04/19 09:13 Pulse Oximeter Continuous Start: 12/01/19 18:35 Freq: RTQ4 Status: Discharge Protocol: Document 12/04/19 04:33 MARIAN (Rec: 12/04/19 04:33 MARIAN [id number]) Pulse Oximetry Assessment Oxygen Saturation (92-100) 97 Oxygen Flow Rate (L/min) 3 Oxygen Delivery Method Nasal Cannula Fraction of Inspired Oxygen (FIO2) 36 Equipment Usage Equipment in Use Continuous SpO2 Machine # 5 Intake & Output 12/03/19 12/04/19 12/05/19 06:59 06:59 06:59 Intake Total 2675 1160 120 Output Total 275 1 Balance 2400 1160 119 Weight 83.8 kg 104.8 kg General appearance: PRESENT: no acute distress, well-developed, well-nourished Head exam: PRESENT: atraumatic, normocephalic Eye exam: PRESENT: conjunctiva pink Mouth exam: PRESENT: moist Respiratory exam: PRESENT: clear to auscultation massiel. ABSENT: rales, rhonchi, wheezes Cardiovascular exam: PRESENT: RRR. ABSENT: diastolic murmur, rubs, systolic murmur GI/Abdominal exam: PRESENT: normal bowel sounds, soft. ABSENT: distended, guarding, mass, organolmegaly, rebound, tenderness Neurological exam: PRESENT: alert, awake, oriented to person, oriented to place, oriented to time, oriented to situation Psychiatric exam: PRESENT: appropriate affect, normal mood Skin exam: PRESENT: dry, intact, warm Results Laboratory Results: 12/03/19 04:24 12/03/19 04:24 12/01/19 12/01/19 12/01/19 13:13 16:23 19:30 Troponin I 0.094 0.103 0.124 NT-Pro-B Natriuret Pep 9900 H 12/01/19 12/02/19 22:58 04:36 Troponin I 0.096 0.071 NT-Pro-B Natriuret Pep Impressions: Chest X-Ray 12/01/19 13:15 IMPRESSION: CARDIAC ENLARGEMENT. VASCULAR CONGESTION. Head CT 12/01/19 13:26 IMPRESSION: NORMAL BRAIN CT WITHOUT CONTRAST. EVIDENCE OF ACUTE STROKE: NO. Chest/Abdomen CTA 12/02/19 00:00 IMPRESSION: 1. No pulmonary embolus. 2. Dilatation of the pulmonary artery - clinical correlation for pulmonary hypertension is recommended. 3. Opacities in the superior segment of the left lower lobe (image 28 of series 4) could represent an infection or atelectasis - clinical correlation is recommended. 4. Cholelithiasis. Assessment and Plan - Diagnosis (1) Moderate pulmonary arterial systolic hypertension Is this a current diagnosis for this admission?: Yes Plan: Likely a significant source of his MORALES/shortness of breath needs pulm FU (2) Right heart failure Is this a current diagnosis for this admission?: Yes (3) LUZMARIA (acute kidney injury) Is this a current diagnosis for this admission?: Yes (4) Acute metabolic encephalopathy Is this a current diagnosis for this admission?: Yes (5) Acute respiratory failure with hypoxia Is this a current diagnosis for this admission?: Yes (6) COPD (chronic obstructive pulmonary disease) Qualifiers: COPD type: chronic bronchitis Is this a current diagnosis for this admission?: Yes (7) Chronic pain Qualifiers: Chronic pain type: other chronic pain Qualified Code(s): G89.29 - Other chronic pain Is this a current diagnosis for this admission?: Yes (8) Diabetes mellitus type 2 in obese Is this a current diagnosis for this admission?: Yes - Time Time Spent with patient: 15-24 minutes Anticipated discharge: Home
== END 2019-12-04 12:10 | disposition home or self-care (01) | DRG 917 ==
LOC: ER 13:02 → EH 18:22 → 3W 20:30
PROVIDERS: ADMIT Internal Medicine; ATTEND Internal Medicine
DX: T40.601A Poisoning by unspecified narcotics, accidental (unintentional), initial encounter (principal); J96.01 Acute respiratory failure with hypoxia; G92 Toxic encephalopathy; J18.9 Pneumonia, unspecified organism; N17.9 Acute kidney failure, unspecified; Y92.9 Unspecified place or not applicable; I27.21 Secondary pulmonary arterial hypertension; I50.810 Right heart failure, unspecified; G89.29 Other chronic pain; E11.9 Type 2 diabetes mellitus without complications; E66.9 Obesity, unspecified; E78.5 Hyperlipidemia, unspecified; J44.9 Chronic obstructive pulmonary disease, unspecified; E78.00 Pure hypercholesterolemia, unspecified; F17.210 Nicotine dependence, cigarettes, uncomplicated; I11.0 Hypertensive heart disease with heart failure; Z79.899 Other long term (current) drug therapy; Z79.84 Long term (current) use of oral hypoglycemic drugs; Z79.4 Long term (current) use of insulin
CPT/HCPCS: 36415; 51702; 70450; 71045; 71275; 80048; 80053; 80307; 81001; 82803; 82962; 83605; 83735; 83880; 84443; 84484; 85025; 87040; 93005; 93010; 93306; 94762; 94799; 96374; 96375; 96376; 99291; J2310; J2405; J3475; J3490; J7030

== ENCOUNTER 2020-02-19 21:35 | Emergency (ER) | payer MEDICARE, MEDICAID ==
[2020-02-19 23:12] LABS: ABSOLUTE EOSINOPHILS # (AUTO) 0.1 10^3/uL (0.0-0.6); ABSOLUTE LYMPHOCYTES (AUTO) 2.3 10^3/uL (0.5-4.7); ABSOLUTE MONOCYTES (AUTO) 0.5 10^3/uL (0.1-1.4); ABSOLUTE NEUT (AUTO) 4.5 10^3/uL (1.7-8.2); BASOPHILS % (AUTO) 0.6 % (0-2); EOSINOPHILS % (AUTO) 1.7 % (0-6); HEMOGLOBIN 17.2 g/dL (13.5-17.0); LYMPHOCYTES % (AUTO) 31.1 % (13-45); MEAN CORPUSCULAR HEMOGLOBIN 34.8 pg (27.0-33.4); MEAN CORPUSCULAR HGB CONC 35.1 g/dL (32.0-36.0); MEAN CORPUSCULAR VOLUME 99 fl (80-97); MONOCYTES % (AUTO) 6.2 % (3-13); PLATELET COUNT 211 10^3/uL (150-450); RED BLOOD COUNT 4.95 10^6/uL (4.35-5.55); RED CELL DISTRIBUTION WIDTH 15.1 % (11.5-14.0); SEGMENTED NEUTROPHILS % (AUTO) 60.4 % (42-78); TOTAL CELLS COUNTED % (AUTO) 100 %; WHITE BLOOD COUNT 7.4 10^3/uL (4.0-10.5)
[2020-02-19 23:28] LABS: ALKALINE PHOSPHATASE 99 U/L (38-126); ANION GAP 12 (5-19); ASPARTATE AMINO TRANSFERASE 218 U/L (17-59); BILIRUBIN,DIRECT 0.3 mg/dL (0.0-0.4); BILIRUBIN,TOTAL 0.9 mg/dL (0.2-1.3); BLOOD UREA NITROGEN 32 mg/dL (7-20); CALCIUM 10.7 mg/dL (8.4-10.2); CARBON DIOXIDE 26 mmol/L (22-30); CHLORIDE 89 mmol/L (98-107); CREATINE KINASE 29 U/L (55-170); GLUCOSE 116 mg/dL (75-110); POTASSIUM 3.6 mmol/L (3.6-5.0); TOTAL PROTEIN 6.9 g/dL (6.3-8.2)
[2020-02-19 23:39] LABS: CREATINE KINASE MB 1.05 ng/mL (<4.55); TROPONIN I 0.012 ng/mL
--- NOTE | 2020-02-20 00:07 | RADIOLOGY REPORT (SQ) ---
XR CHEST 1 VIEW HISTORY: Chest pain. COMPARISON: 12/01/2019 FINDINGS: The heart size is within normal limits. There is no pulmonary vascular congestion. No consolidation, pleural effusion, or pneumothorax is seen. There is atelectasis at the left lung base. The bony structures are preserved. IMPRESSION: No evidence of acute cardiopulmonary disease.
[2020-02-20] MEDS ORDERED: NORMAL SALINE 1000 ML 1,000 ML IV ONE (00:25)
[2020-02-20] MEDS ORDERED: LORAZEPAM 1 MG TABLET PO ONE (00:46)
--- NOTE | 2020-02-20 01:04 | ER Document Report ---
ED General - General Chief Complaint: Blood Pressure Problem Stated Complaint: BLOOD PRESSURE PROBLEMS Time Seen by Provider: 02/19/20 23:14 Primary Care Provider: ANNABELLE PAYTON MD [Primary Care Provider] - Follow up as needed TRAVEL OUTSIDE OF THE [place] IN LAST 30 DAYS: No - HPI Notes: Patient is a 64-year-old male who presents to the emergency department for evaluation. He has a recent diagnosis of pulmonary hypertension. He was sent home on oxygen after seeing Dr. Russo. Patient states that after using his Symbicort and Anoro, he has been able to wean himself off the oxygen without difficulty. He states about a week ago, however, he started to get a headache. Then he was started to get chest heaviness. He would check his vitals, and his blood pressure, pulse, and oxygen were all dropped. He states his heart rate would go down into the 40s and 50s. His lowest blood pressure was in the 60s. His oxygen level is in the low 80s. He states he would take an aspirin, placed himself on oxygen, and everything would improve within 20 minutes. He admits he feels dizzy during these episodes. He states that they are not brought on by exertion, he states that most episodes he is just sitting watching television. He has approximately 3 episodes daily, states he has been taking his medications as prescribed. No recent medication changes. At this point he states he is entirely asymptomatic. He was asymptomatic by the time EMS arrived, and has had not had any return of his symptoms since arrival in the emergency department. He states that right now his only symptom is anxiety, he believes this is because he has not yet taken his Ativan for the night. - Related Data Allergies/Adverse Reactions: No Known Allergies Allergy (Verified 01/29/19 16:24) Home Medications: Anoro Ellipta 62.5-25 mcg daily, Spiriva Respimat 2.5 mg 2 puffs daily, Ativan 1 mg every 8 hours, oxycodone 15 mg every 6 hours as needed, metformin 500 mg daily, atorvastatin 40 mg at bedtime, Adderall 30 mg daily, albuterol 2 inhalations twice a day Past Medical History - General Information source: Patient - Social History Smoking Status: Current Every Day Smoker Frequency of alcohol use: Heavy - Drinks heavily at least 5 days a week Family History: Malignancy - Past Medical History Cardiac Medical History: Reports: Hx Hypercholesterolemia, Hx Hypertension Pulmonary Medical History: Reports: Hx COPD, Other - Pulmonary hypertension Denies: Hx Asthma Neurological Medical History: Denies: Hx Seizures Endocrine Medical History: Reports: Hx Diabetes Mellitus Type 2. Denies: Hx Diabetes Mellitus Type 1, Hx Hyperthyroidism, Hx Hypothyroidism Renal/ Medical History: Reports: Hx Kidney Stones. Denies: Hx Peritoneal Dialysis GI Medical History: Denies: Hx Cirrhosis, Hx Hepatitis Musculoskeletal Medical History: Reports Hx Arthritis - Bilateral hip pain, Denies Hx Gout, Reports Hx Musculoskeletal Deformity Skin Medical History: Denies Hx Eczema, Denies Hx Psoriasis Psychiatric Medical History: Denies: Hx Depression Infectious Medical History: Denies: Hx Hepatitis Past Surgical History: Reports: Hx Herniorrhaphy - Immunizations Hx Diphtheria, Pertussis, Tetanus Vaccination: Yes Review of Systems - Review of Systems Constitutional: See HPI Cardiovascular: See HPI Respiratory: See HPI Gastrointestinal: See HPI -: Yes All other systems reviewed and negative Physical Exam - Vital signs Vitals: Temp 98.1 F 02/19/20 21:35 - Notes Notes: Vital signs reviewed, please refer to chart. Head is normocephalic, atraumatic. Pupils equal round, reactive to light. Neck is supple without meningismus. Heart is regular rate and rhythm. Lungs revealed mildly diminished expiratory breath sounds, but no wheezes, rales, rhonchi. Abdomen is soft, nontender, normoactive bowel sounds throughout. Extremities without cyanosis, clubbing. Posterior calves are nontender. Peripheral pulses are equal. Skin is warm and dry. Patient is awake, alert, neurological exam is nonfocal. Course - Re-evaluation Re-evalutation: 02/20/20 01:10 Patient presents to the emergency department for evaluation. He is been having intermittent headache, heartburn, low blood pressure, low pulse, and low oxygen. I do not have a clear etiology for the symptoms. Patient is hyponatremic and has elevated LFTs. This could be secondary to heavy alcohol use, and the patient was counseled. This also could be in part secondary to hypotension, transient though it may be. He was not hypotensive while here. He did develop some mild tachycardia, the patient states he believes is because he has not had his Ativan. His Ativan was ordered. I did give him a liter of normal saline. His renal function was off slightly, but again this could be secondary to drinking and dehydration. He has multiple chronic ongoing issues. He was counseled on the need to stop drinking. He was counseled on the need to stop smoking. He needs to follow-up with primary care as well as pulmonology. He did not have any episodes of desaturation here. Currently his heart rate is 100, his blood pressure is 133/79. He is 98% on room air, with a respiratory rate of 16. He shows no signs of labored breathing or altered mentation. I do not have a clear etiology for these symptoms her periods of abnormal vital signs that he is having. I encouraged him to bring his machines in to have them checked with his primary care office as well. He is amenable to this plan. Otherwise he is to continue to check frequently, uses home oxygen as directed. Follow-up with primary care and pulmonology, return to the ED with worsening or new concerning symptoms of any sort. - Vital Signs Vital signs: Temp Pulse Resp BP Pulse Ox 98.1 F 14 110/70 95 02/19/20 21:35 02/20/20 00:01 02/20/20 00:01 02/20/20 00:01 - Laboratory Result Diagrams: 02/19/20 23:00 02/19/20 23:00 Laboratory results interpreted by me: 02/19/20 02/19/20 23:00 23:00 Hgb 17.2 H MCV 99 H MCH 34.8 H RDW 15.1 H Sodium 127.1 L Chloride 89 L BUN 32 H Creatinine 1.41 H Est GFR (MDRD) Non-Af 50 L Glucose 116 H Calcium 10.7 H AST 218 H ALT 153 H Creatine Kinase 29 L - Diagnostic Test Radiology reviewed: Reports reviewed Radiology results interpreted by me: 02/20/20 01:12 Chest X-Ray 02/19/20 22:47 IMPRESSION: No evidence of acute cardiopulmonary disease. - EKG Interpretation by Me Additional EKG results interpreted by me: 02/20/20 01:08 Sinus mechanism with a rate of 98 bpm. Normal axis. Right bundle branch block. No change from prior study in November 2019. Discharge - Discharge Clinical Impression: Hyponatremia, Abnormal renal function, Abnormal liver function tests Condition: Stable Disposition: HOME, SELF-CARE Instructions: Hyponatremia ([facility]), Liver Function Abnormality ([facility]), Kidney Function Abnormality ([facility]), Chronic Alcoholism ([facility]) Additional Instructions: Please stay well-hydrated. Continue to take your regular medications as prescribed. Continue to check your vitals frequently, use your oxygen as directed. You should bring your machines with you to your next primary care and /or pulmonology appointment, be sure they are calibrated and reading correctly. Otherwise, try to quit smoking. Try to cut down and then illuminate alcohol consumption. Follow-up with primary care and pulmonology next week. Return to the emergency department with worsening or new concerning symptoms of any sort. Referrals: ANNABELLE PAYTON MD [Primary Care Provider] - Follow up as needed
[2020-02-20 01:55] VITALS: BP 135/97
--- NOTE | 2020-02-20 09:46 | EKG REPORT ---
SEVERITY:- ABNORMAL ECG - SINUS RHYTHM RIGHT BUNDLE BRANCH BLOCK : Confirmed by: Jasmine Braun MD 20-Feb-2020 09:44:50
== END 2020-02-20 01:47 | disposition home or self-care (01) ==
LOC: ER 21:35
DX: E87.1 Hypo-osmolality and hyponatremia (principal); R94.4 Abnormal results of kidney function studies; R94.5 Abnormal results of liver function studies; I10 Essential (primary) hypertension; F17.200 Nicotine dependence, unspecified, uncomplicated; E78.00 Pure hypercholesterolemia, unspecified; E11.9 Type 2 diabetes mellitus without complications; Z87.442 Personal history of urinary calculi
CPT/HCPCS: 93005; 99285; 96360; 36415; 82553; 82550; 85025; 80053; 84484; 71045; 93010; A9270; J7030

== ENCOUNTER 2020-04-06 16:22 | Emergency (ER) | payer MEDICARE, MEDICAID ==
--- NOTE | 2020-04-06 19:32 | ER Document Report ---
ED General - General Chief Complaint: Chest Pain Stated Complaint: SHORT OF BREATH,CHEST PAIN,VOMITING Time Seen by Provider: 04/06/20 19:16 Primary Care Provider: ANNABELLE PAYTON MD [Primary Care Provider] - Follow up as needed TRAVEL OUTSIDE OF THE [place] IN LAST 30 DAYS: No - HPI Patient complains to provider of: cough/vomiting Notes: 64 y/o presenting to ED complaining of various complaints over mulitple months he states that over the last 2-3 weeks he has become even more fatigued than usual and has had increased coughing and vomiting x2 (nonbloody/nonbilious) he denies fever/chills he tells me he currently does not have a primary care doctor because his has left the clinic (?) he denies leg swelling he denies h/o pe or dvt he denies diarrhea he denies international travel or known sick contacts - Related Data Allergies/Adverse Reactions: No Known Allergies Allergy (Verified 01/29/19 16:24) Past Medical History - Social History Smoking Status: Current Every Day Smoker Chew tobacco use (# tins/day): No Frequency of alcohol use: Heavy Drug Abuse: None Family History: Malignancy - Past Medical History Cardiac Medical History: Reports: Hx Hypercholesterolemia, Hx Hypertension Pulmonary Medical History: Reports: Hx COPD Denies: Hx Asthma Neurological Medical History: Denies: Hx Seizures Endocrine Medical History: Reports: Hx Diabetes Mellitus Type 2. Denies: Hx Diabetes Mellitus Type 1, Hx Hyperthyroidism, Hx Hypothyroidism Renal/ Medical History: Reports: Hx Kidney Stones. Denies: Hx Peritoneal Dialysis GI Medical History: Denies: Hx Cirrhosis, Hx Hepatitis Musculoskeletal Medical History: Reports Hx Arthritis - Bilateral hip pain, Denies Hx Gout, Reports Hx Musculoskeletal Deformity Skin Medical History: Denies Hx Eczema, Denies Hx Psoriasis Psychiatric Medical History: Denies: Hx Depression Infectious Medical History: Denies: Hx Hepatitis Past Surgical History: Reports: Hx Herniorrhaphy - Immunizations Hx Diphtheria, Pertussis, Tetanus Vaccination: Yes Review of Systems - Review of Systems Constitutional: Malaise EENT: Nose congestion Cardiovascular: Chest pain. denies: Palpitations, Syncope, Dizziness Respiratory: Cough. denies: Hurts to breathe, Hemoptysis, Short of breath Gastrointestinal: Vomiting. denies: Abdominal pain, Diarrhea, Constipation Genitourinary: No symptoms reported Male Genitourinary: No symptoms reported Musculoskeletal: Muscle pain. denies: Leg swelling Skin: No symptoms reported. denies: Rash Hematologic/Lymphatic: No symptoms reported Neurological/Psychological: No symptoms reported Physical Exam - Vital signs Vitals: Temp Pulse Resp BP Pulse Ox 98.7 F 95 16 125/83 97 04/06/20 16:48 04/06/20 16:48 04/06/20 16:48 04/06/20 16:48 04/06/20 16:48 Interpretation: Normal - General General appearance: Appears well, Alert - HEENT Head: Normocephalic, Atraumatic Eyes: Normal Pupils: PERRL - Respiratory Respiratory status: No respiratory distress Chest status: Nontender Breath sounds: Normal Chest palpation: Normal - Cardiovascular Rhythm: Regular Heart sounds: Normal auscultation Murmur: No - Abdominal Inspection: Normal Distension: No distension Bowel sounds: Normal Tenderness: Nontender Organomegaly: No organomegaly - Back Back: Normal, Nontender - Extremities General upper extremity: Normal inspection, Nontender, Normal color, Normal ROM, Normal temperature General lower extremity: Normal inspection, Nontender, Normal color, Normal ROM, Normal temperature, Normal weight bearing. No: Jimmy's sign - Neurological Neuro grossly intact: Yes Cognition: Normal Orientation: AAOx4 Anibal Coma Scale Eye Opening: Spontaneous Anibal Coma Scale Verbal: Oriented [place] Coma Scale Motor: Obeys Commands [place] Coma Scale Total: 15 Speech: Normal Motor strength normal: LUE, RUE, LLE, RLE Sensory: Normal - Psychological Associated symptoms: Normal affect, Normal mood - Skin Skin Temperature: Warm Skin Moisture: Dry Skin Color: Normal Course - Re-evaluation Re-evalutation: 04/06/20 19:31 very nonspecific presentation in an otherwise well appearing patient will check fairly extensive workup to evaluate for potential emergent pathology causing his symptoms although this seems unlikely after initial exam 04/06/20 23:24 workup has been unremarkable w/ nonischemic ekg, neg cta, neg trop, and reassuring labs will have nursing swab for covid and recommend patient follow up with a new pcp of his choosing - Vital Signs Vital signs: Temp Pulse Resp BP Pulse Ox 98.7 F 95 16 125/83 97 04/06/20 16:48 04/06/20 16:48 04/06/20 16:48 04/06/20 16:48 04/06/20 16:48 - Laboratory Result Diagrams: 04/06/20 21:38 04/06/20 20:04 Laboratory results interpreted by me: 04/06/20 04/06/20 04/06/20 20:04 20:04 20:04 MCV MCH RDW Plt Count D-Dimer 1.29 H NT-Pro-B Natriuret Pep 257 H Lipase 13.9 L Urine Urobilinogen 04/06/20 04/06/20 21:21 21:38 MCV 102 H MCH 34.4 H RDW 14.9 H Plt Count 137 L D-Dimer NT-Pro-B Natriuret Pep Lipase Urine Urobilinogen 4.0 H - Diagnostic Test Radiology reviewed: Image reviewed, Reports reviewed - EKG Interpretation by Me Additional EKG results interpreted by me: 04/06/20 19:31 NSR, rate of 74, RBBB, no ST segment changes Discharge - Discharge Clinical Impression: Cough, Atypical chest pain, Nausea Fatigue Qualifiers: Fatigue type: unspecified Qualified Code(s): R53.83 - Other fatigue Condition: Stable Disposition: HOME, SELF-CARE Instructions: Chest Pain of Unclear Cause ([facility]), Cough Suppressant & E xpectorant Medications, Fatigue ([facility]) Additional Instructions: Follow up with a primary care provider of your choosing Return to the ED with worsening symptoms or concerns Take all of your home medications as directed Referrals: ANNABELLE PAYTON MD [Primary Care Provider] - Follow up as needed
--- NOTE | 2020-04-06 19:39 | RADIOLOGY REPORT (SQ) ---
EXAM DESCRIPTION: CHEST SINGLE VIEW IMAGES COMPLETED DATE/TIME: 04/06/2020 7:24 pm REASON FOR STUDY: sob COMPARISON: 02/19/2020 EXAM PARAMETERS: NUMBER OF VIEWS: One view. TECHNIQUE: Single frontal radiographic view of the chest acquired. RADIATION DOSE: NA LIMITATIONS: None. FINDINGS: LUNGS AND PLEURA: No opacities, masses or pneumothorax. No pleural effusion. MEDIASTINUM AND HILAR STRUCTURES: No masses. Contour normal. HEART AND VASCULAR STRUCTURES: Heart normal in size. Normal vasculature. BONES: No acute findings. HARDWARE: None in the chest. OTHER: No other significant finding. IMPRESSION: NO ACUTE RADIOGRAPHIC FINDING IN THE CHEST. TECHNICAL DOCUMENTATION: JOB ID: [id number] 2010 [employer]- All Rights Reserved Reading location - IP/workstation name: [email or web address]
[2020-04-06 20:51] LABS: ALKALINE PHOSPHATASE 108 U/L (38-126); ANION GAP 10 (5-19); ASPARTATE AMINO TRANSFERASE 59 U/L (17-59); BILIRUBIN,DIRECT 0.2 mg/dL (0.0-0.4); BILIRUBIN,TOTAL 1.1 mg/dL (0.2-1.3); BLOOD UREA NITROGEN 8 mg/dL (7-20); CALCIUM 9.3 mg/dL (8.4-10.2); CARBON DIOXIDE 30 mmol/L (22-30); CHLORIDE 102 mmol/L (98-107); GLUCOSE 103 mg/dL (75-110); POTASSIUM 4.1 mmol/L (3.6-5.0); TOTAL PROTEIN 7.1 g/dL (6.3-8.2)
[2020-04-06 21:02] LABS: NT PRO BNP 257 pg/mL (<125)
[2020-04-06 21:06] LABS: TROPONIN I < 0.012 ng/mL
--- NOTE | 2020-04-06 21:32 | EKG REPORT ---
SEVERITY:- ABNORMAL ECG - SINUS RHYTHM RIGHT BUNDLE BRANCH BLOCK : Confirmed by: Jermaine Toure 06-Apr-2020 21:31:22
[2020-04-06 21:46] LABS: APPEARANCE,URINE CLEAR; BILIRUBIN,URINE NEGATIVE (NEGATIVE); COLOR,URINE AMBER; GLUCOSE, URINE NEGATIVE (NEGATIVE); KETONES,URINE NEGATIVE (NEGATIVE); LEUKOCYTE ESTERASE,URINE NEGATIVE (NEGATIVE); NITRITE,URINE NEGATIVE (NEGATIVE); PROTEIN,URINE NEGATIVE (NEGATIVE); URINE SPECIFIC GRAVITY 1.021
[2020-04-06 21:52] LABS: ABSOLUTE EOSINOPHILS # (AUTO) 0.2 10^3/uL (0.0-0.6); ABSOLUTE MONOCYTES (AUTO) 0.4 10^3/uL (0.1-1.4); ABSOLUTE NEUT (AUTO) 3.5 10^3/uL (1.7-8.2); BASOPHILS % (AUTO) 0.8 % (0-2); EOSINOPHILS % (AUTO) 2.6 % (0-6); HEMATOCRIT 45.5 % (37.9-51.0); HEMOGLOBIN 15.3 g/dL (13.5-17.0); MEAN CORPUSCULAR HEMOGLOBIN 34.4 pg (27.0-33.4); MEAN CORPUSCULAR HGB CONC 33.6 g/dL (32.0-36.0); MEAN CORPUSCULAR VOLUME 102 fl (80-97); PLATELET COUNT 137 10^3/uL (150-450); RED BLOOD COUNT 4.44 10^6/uL (4.35-5.55); RED CELL DISTRIBUTION WIDTH 14.9 % (11.5-14.0); SEGMENTED NEUTROPHILS % (AUTO) 57.6 % (42-78); TOTAL CELLS COUNTED % (AUTO) 100 %; WHITE BLOOD COUNT 6.1 10^3/uL (4.0-10.5)
--- NOTE | 2020-04-06 23:18 | RADIOLOGY REPORT (SQ) ---
CT angiogram chest with contrast on 04/06/2020 at 11:09 PM CLINICAL INDICATION: Chest pain, elevated d-dimer TECHNIQUE: Multiple axial images are obtained throughout the chest following the administration of IV contrast. Computer generated 3D reconstructions/MIPS were performed. This exam was performed according to our departmental dose-optimization program, which includes automated exposure control, adjustment of the mA and/or kV according to patient size and/or use of iterative reconstruction technique. Total DLP is 983.07 mGy*cm. COMPARISON: 12/02/2019 FINDINGS: Coronary artery calcifications and other vascular calcifications are noted. There is no thoracic aortic aneurysm or dissection. There is no pleural or pericardial effusion. Multiple gallstones are noted in the gallbladder. Limited visualized upper abdomen is otherwise unremarkable. There is no thoracic adenopathy. There is enlargement of the main and central pulmonary arteries suggesting pulmonary arterial hypertension. There are no filling defects within the pulmonary arteries to suggest pulmonary embolus. There is minimal linear atelectasis or scarring in the lower lungs. There is mild mosaic attenuation bilaterally suggesting mild areas of air trapping. The lungs are otherwise clear. There is some likely mild areas of increased secretion along the tracheal wall. Degenerative changes are noted in the spine. IMPRESSION: 1. No evidence of pulmonary embolus. 2. Enlargement of the main and central pulmonary arteries suggesting pulmonary arterial hypertension. 3. Cholelithiasis.
[2020-04-06 23:54] VITALS: BP 144/90
== END 2020-04-07 | disposition home or self-care (01) ==
LOC: ER 16:22
DX: R53.83 Other fatigue (principal); R07.89 Other chest pain; R05 Cough; R11.2 Nausea with vomiting, unspecified; I45.10 Unspecified right bundle-branch block; F17.200 Nicotine dependence, unspecified, uncomplicated; R09.81 Nasal congestion; M79.10 Myalgia, unspecified site; R53.81 Other malaise; I10 Essential (primary) hypertension; J44.9 Chronic obstructive pulmonary disease, unspecified; E11.9 Type 2 diabetes mellitus without complications
CPT/HCPCS: 36415; 71045; 71275; 80053; 81001; 83690; 83880; 84484; 85025; 85379; 93005; 93010; 99285

== ENCOUNTER 2020-08-06 15:30 | Emergency (ER) | payer MEDICARE, MEDICAID ==
[2020-08-06 16:24] LABS: ABSOLUTE LYMPHOCYTES (AUTO) 0.9 10^3/uL (0.5-4.7); ABSOLUTE MONOCYTES (AUTO) 0.2 10^3/uL (0.1-1.4); BASOPHILS % (AUTO) 0.5 % (0-2); EOSINOPHILS % (AUTO) 1.2 % (0-6); HEMATOCRIT 48.2 % (37.9-51.0); HEMOGLOBIN 15.9 g/dL (13.5-17.0); LYMPHOCYTES % (AUTO) 22.4 % (13-45); MEAN CORPUSCULAR HEMOGLOBIN 32.7 pg (27.0-33.4); MEAN CORPUSCULAR VOLUME 99 fl (80-97); MONOCYTES % (AUTO) 4.5 % (3-13); PLATELET COUNT 119 10^3/uL (150-450); RED BLOOD COUNT 4.87 10^6/uL (4.35-5.55); SEGMENTED NEUTROPHILS % (AUTO) 71.4 % (42-78); TOTAL CELLS COUNTED % (AUTO) 100 %; WHITE BLOOD COUNT 4.2 10^3/uL (4.0-10.5)
--- NOTE | 2020-08-06 16:49 | ER Document Report ---
ED General - General Stated Complaint: UNRESPONSIVE Time Seen by Provider: 08/06/20 15:51 TRAVEL OUTSIDE OF THE [place] IN LAST 30 DAYS: No - HPI Notes: Patient is a 64-year-old male who presents to the emergency department for evalu ation after an unresponsive episode. Patient states this is happened in the past. He was out shopping with a friend. He states that he started feeling chest tightness and shortness of breath, the next thing he knew he woke up in the back of the ambulance. Per EMS, he was found with diminished respiratory rate and was intubated initially, upon further evaluation they decided to administer Narcan. The patient became responsive and the patient was extubated. The patient denies taking any pain medication beyond what he was prescribed, denies use of any illicit drugs. States he does drink alcohol daily, but states he was not drinking any today so far. He denies any suicidal or homicidal i deation, no visual or auditory hallucination. He denies any recent changes in his pain medication prescriptions. - Related Data Allergies/Adverse Reactions: No Known Allergies Allergy (Verified 01/29/19 16:24) Past Medical History - General Information source: Patient - Social History Smoking Status: Current Every Day Smoker Frequency of alcohol use: Heavy - 1-2 alcoholic drinks daily Drug Abuse: None Family History: Reviewed & Not Pertinent, Malignancy - Past Medical History Cardiac Medical History: Reports: Hx Hypercholesterolemia, Hx Hypertension Pulmonary Medical History: Reports: Hx COPD Denies: Hx Asthma Neurological Medical History: Denies: Hx Seizures Endocrine Medical History: Reports: Hx Diabetes Mellitus Type 2. Denies: Hx Diabetes Mellitus Type 1, Hx Hyperthyroidism, Hx Hypothyroidism Renal/ Medical History: Reports: Hx Kidney Stones. Denies: Hx Peritoneal Dialysis GI Medical History: Denies: Hx Cirrhosis, Hx Hepatitis Musculoskeletal Medical History: Reports Hx Arthritis - Bilateral hip pain, Denies Hx Gout, Reports Hx Musculoskeletal Deformity Skin Medical History: Denies Hx Eczema, Denies Hx Psoriasis Psychiatric Medical History: Denies: Hx Depression Infectious Medical History: Denies: Hx Hepatitis Past Surgical History: Reports: Hx Herniorrhaphy - Immunizations Hx Diphtheria, Pertussis, Tetanus Vaccination: Yes Review of Systems - Review of Systems Constitutional: No symptoms reported EENT: No symptoms reported Cardiovascular: See HPI Respiratory: See HPI Gastrointestinal: No symptoms reported Genitourinary: No symptoms reported Musculoskeletal: No symptoms reported Skin: No symptoms reported Neurological/Psychological: No symptoms reported Physical Exam - Notes Notes: Vital signs reviewed, please refer to chart. Head is normocephalic, atraumatic. Pupils equal round, reactive to light. Neck is supple without meningismus. Heart is regular rate and rhythm. Lungs reveal diminished breath sounds without wheezes, rales, rhonchi. Abdomen is soft, nontender, normoactive bowel sounds throughout. Extremities without cyanosis, clubbing. Posterior calves are nontender. Peripheral pulses are equal. Skin is warm and dry. Patient is awake, alert, oriented x3. Cranial nerves II - XII are grossly intact without focal neurological deficits. Strength is plus 5 out of 5 bilateral upper and lower extremities. Sensation is intact. Reflexes symmetrical. Intact [id number], rapid alternating movements, [id number]. Course - Re-evaluation Re-evalutation: 08/06/20 16:48 Patient presents emergency department for evaluation. He was initially evaluated by EMS, was intubated, but had significant response to Narcan was subsequently extubated. My strong suspicion is that this patient overdosed on his narcotics. He has been on heavy dosages of morphine and oxycodone. He den ies taking any extra. I explained to the patient then, that he is on too many narcotics, and he is putting his life at risk. He states "maybe I should look into that." He denies any problems with drug abuse. He is amenable to staying for further evaluation. Laboratory investigations are ordered, he remained stable, we will continue to monitor. 08/06/20 18:30 Patient's laboratory vesication's are largely unremarkable. I am still awaiting urinalysis and urine drug screen. I strongly suspect, as mentioned above, narcotic overdose. The patient continues to deny the addition of any other il licit drugs to his regimen today. He denies taking any extra. He is not suicidal nor homicidal. He states he would like to leave. He has a friend with him. His friend states that he had been talking and then started staring off, then started with snoring respirations and intermittent agonal respirations. He was given [id number], intubated by the squad, then given Narcan. I told the patient that I strongly urged him to cut down on his narcotic dosages. I told him that he was putting his life at risk by taking these, as he has required Narcan in the past. He already has Narcan at home. He states he does not live alone. He has nasal Narcan and lives with people who know how to use it. At this point the patient will sign out AGAINST MEDICAL ADVICE. He is told that if he changes his mind he can return to the ED at any time. Otherwise he is strongly encouraged to follow-up closely with cardiology, pulmonology, primary care, and discuss decreasing his pain medication with pain management. - Laboratory Results Result Diagrams: 08/06/20 15:50 08/06/20 16:55 Laboratory Results Interpreted: 08/06/20 08/06/20 15:50 16:55 MCV 99 H RDW 15.0 H Plt Count 119 L Carbon Dioxide 34 H Glucose 158 H Magnesium 1.4 L AST 111 H Albumin 3.4 L Salicylates 1.0 L Acetaminophen < 10 L Critical Laboratory Results Reviewed: No Critical Results - Radiology Results Critical Radiology Results Reviewed: No Critical Results - EKG Interpretation by Me Additional EKG results interpreted by me: 08/06/20 18:33 Sinus mechanism with a rate of 87 bpm. Normal axis. Right bundle branch block, left posterior fascicular block. No old studies immediately available for brenda riddle. Discharge - Discharge Clinical Impression: Opiate or related narcotic overdose Qualifiers: Encounter type: initial encounter Injury intent: accidental or unintentional Qualified Code(s): T40.601A - Poisoning by unspecified narcotics, accidental (unintentional), initial encounter Condition: Stable Disposition: AGAINST MEDICAL ADVICE Instructions: Overdose ([facility]) Additional Instructions: Your findings today on exam are most consistent with an overdose. I strongly suggested that you decrease your pain medication significantly. You should disc uss this with pain management, as you required Narcan to start breathing again. Please follow-up closely with cardiology, pulmonology, primary care, pain management. You have elected to leave AGAINST MEDICAL ADVICE. As discussed, you are at risk of respiratory arrest and . You understand these risks and still have elected to leave. If you change your mind, or if you develop new or concerning symptoms of any sort, please return immediately to the emergency department for evaluation.
[2020-08-06 17:59] LABS: ALBUMIN 3.4 g/dL (3.5-5.0); ALKALINE PHOSPHATASE 90 U/L (38-126); ANION GAP 6 (5-19); ASPARTATE AMINO TRANSFERASE 111 U/L (17-59); BILIRUBIN,DIRECT 0.3 mg/dL (0.0-0.4); BLOOD UREA NITROGEN 10 mg/dL (7-20); CALCIUM 9.1 mg/dL (8.4-10.2); CARBON DIOXIDE 34 mmol/L (22-30); CHLORIDE 99 mmol/L (98-107); GLUCOSE 158 mg/dL (75-110); TOTAL PROTEIN 6.5 g/dL (6.3-8.2)
[2020-08-06 18:03] LABS: ACETAMINOPHEN < 10 ug/mL (10-30); ALCOHOL < 10 mg/dL (NONE DETECTED)
[2020-08-06 18:31] LABS: APPEARANCE,URINE CLEAR; BILIRUBIN,URINE NEGATIVE (NEGATIVE); COLOR,URINE YELLOW; GLUCOSE, URINE NEGATIVE (NEGATIVE); KETONES,URINE NEGATIVE (NEGATIVE); LEUKOCYTE ESTERASE,URINE NEGATIVE (NEGATIVE); NITRITE,URINE NEGATIVE (NEGATIVE); PROTEIN,URINE 100 mg/dL (NEGATIVE); URINE SPECIFIC GRAVITY 1.014; UROBILINOGEN,URINE NEGATIVE mg/dL (<2.0)
[2020-08-06 18:54] LABS: URINE AMPHETAMINES SCREEN NEGATIVE; URINE BARBITURATES SCREEN NEGATIVE; URINE BENZODIAZEPINES SCREEN NEGATIVE; URINE COCAINE SCREEN NEGATIVE; URINE MARIJUANA (THC) SCREEN NEGATIVE; URINE METHADONE SCREEN NEGATIVE; URINE PHENCYCLIDINE SCREEN NEGATIVE
--- NOTE | 2020-08-06 21:29 | EKG REPORT ---
SEVERITY:- ABNORMAL ECG - SINUS RHYTHM RBBB AND LPFB : Confirmed by: Jasmine Braun MD 06-Aug-2020 21:28:40
== END 2020-08-06 18:35 | disposition left against medical advice (07) ==
LOC: ER 15:30
DX: T40.601A Poisoning by unspecified narcotics, accidental (unintentional), initial encounter (principal); I45.2 Bifascicular block; F17.200 Nicotine dependence, unspecified, uncomplicated; I10 Essential (primary) hypertension; J44.9 Chronic obstructive pulmonary disease, unspecified; E11.9 Type 2 diabetes mellitus without complications; Z79.891 Long term (current) use of opiate analgesic; Z53.20 Procedure and treatment not carried out because of patient's decision for unspecified reasons
CPT/HCPCS: 36415; 80053; 80307; 81001; 83735; 84484; 85025; 93005; 93010; 99284